=== PATIENT | male | born 1950 | race Asian ===

== ENCOUNTER 2016-10-21 08:19 | Inpatient (IN) | payer MEDICARE, OTHER ==
[~2016-10-21] VITALS: Ht 162.6 cm; Wt 73.4 kg
[~2016-10-21 08:19] MED LIST: ACAR50TA11 PO; AMLO10TA55 PO; ASPI-556 PO; ATOR20TA86 PO; B CO1CAP4 PO; CALC667T3 PO; CHOL2000 PO; CLON.2 PO; FOLI1CAP2 PO; HYDR50 PO; INSLAN SQ; LINA5TAB PO; MULT-722 PO; PARI1CAP IVP; PREDAOS OD; RAMI10 PO; TERA2 PO
[2016-10-21 08:35] LABS: GLUCOSE,POINT OF CARE 179 MG/DL (70-110)
[2016-10-21 10:16] LABS: BASOPHILS % (AUTO) 0.2 % (0.0-2.0); EOSINOPHILS % (AUTO) 0.2 % (1.0-6.0); HEMATOCRIT 26.5 % (41-53); HEMOGLOBIN 8.8 g/dL (13.5-17.5); LYMPHOCYTES # (AUTO) 0.6 K/uL (1.0-4.8); LYMPHOCYTES % (AUTO) 4.8 % (22.0-44.0); MEAN CORPUSCULAR HEMOGLOBIN 33.1 pg (26.0-34.0); MEAN CORPUSCULAR HGB CONC 33.3 G/dL (31.0-37.0); MEAN CORPUSCULAR VOLUME 99 fL (80-100); MONOCYTES # (AUTO) 0.3 K/uL (0.1-1.0); MONOCYTES % (AUTO) 2.2 % (2.0-9.0); NEUTROPHILS # (AUTO) 12.1 K/uL (1.8-7.7); PLATELET COUNT (AUTO) 268 K/uL (150-450); RED BLOOD CELL COUNT(AUTO) 2.67 MIL/uL (4.50-5.90); RED CELL DISTRIBUTION WIDTH 16.1 % (11.5-14.5); WHITE BLOOD COUNT (AUTO) 13.1 K/uL (4.5-11.0)
[2016-10-21 10:18] LABS: NEUTROPHILS % (AUTO) 92.6 % (40.0-70.0)
[2016-10-21 10:26] LABS: PROTHROMBIN TIME 10.8 SEC (9.4-11.6)
[2016-10-21 10:54] LABS: ALANINE AMINOTRANSFERASE 39 U/L (12-78); ALBUMIN 3.4 g/dL (3.4-5.0); ASPARTATE AMINOTRANSFERASE 24 U/L (15-37); BILIRUBIN,TOTAL 0.2 mg/dL (0.1-1.0); CALCIUM, TOTAL 7.6 mg/dL (8.8-10.5); CARBON DIOXIDE 23 mmol/L (22-29); CREATINE KINASE MB 2.6 ng/mL (0-5); CREATINE KINASE, TOTAL 221 U/L (39-308); GLOMERULAR FILTR. RATE CALC 5 mL/min (>60); TOTAL PROTEIN, SERUM 7.7 g/dL (6.4-8.2)
[2016-10-21 11:04] LABS: B-TYPE NATRIURETIC PEPTIDE 119 pg/mL (0-100)
[2016-10-21 11:05] LABS: ANION GAP 17 mmol/L (8-16); CHLORIDE 98 mmol/L (98-107); CREATININE 11.13 mg/dL (0.60-1.30); SODIUM SERUM 138 mmol/L (136-145); UREA NITROGEN, BLOOD 58 mg/dL (7-18)
[2016-10-21 11:08] LABS: POTASSIUM 6.6 mmol/L (3.5-5.1)
[2016-10-21] MEDS ORDERED: CALCIUM GLUCONATE 0.465 MEQ/ML 10 ML VIAL IVP ONE (11:15)
[2016-10-21] MEDS: DEXTROSE 50%-WATER 25 GM/50 ML SYRINGE IVP ONE ×2 (11:15→11:31)
[2016-10-21] MEDS ORDERED: SODIUM BICARBONATE [ADULT] 8.4% 50 MEQ/50 ML SYRINGE IVP ONE (11:15)
[2016-10-21] MEDS: INSULIN REGULAR, HUMAN 100 UNITS/ML IVP ONE ×2 (11:15→11:32)
[2016-10-21] MEDS ORDERED: ALBUTEROL SULFATE 2.5 MG/0.5 ML NEB SOLUTION NEB PRN (12:00)
[2016-10-21] MEDS ORDERED: ACETAMINOPHEN 325 MG TABLET PO PRN (12:00)
[2016-10-21] MEDS ORDERED: BISACODYL 10 MG RECTAL RECTAL SUPPOSITORY PR PRN (12:00)
[2016-10-21] MEDS ORDERED: DEXTROSE 50%-WATER 25 GM/50 ML SYRINGE IVP PRN (12:15)
[2016-10-21] MEDS ORDERED: VANCOMYCIN HCL 1.5 GM in DEXTROSE 5%-WATER 250 ML IV ONE ×2 (12:30→21:30)
[2016-10-21] MEDS ORDERED: VANCOMYCIN HCL 1 GM/D5% WATER 200 ML IV PRN (12:45)
[2016-10-21] MEDS ORDERED: PIPERACILLIN SODIUM/TAZOBACTAM 2.25 GM in DEXTROSE 5%-WATER 50 ML IV SCH (13:00)
[2016-10-21] MEDS: PANTOPRAZOLE SODIUM 40 MG/VIAL IVP SCH ×2 (14:53→21:13)
[2016-10-21 16:59] LABS: BASOPHILS % (AUTO) 0.7 % (0.0-2.0); EOSINOPHILS % (AUTO) 0.1 % (1.0-6.0); HEMATOCRIT 22.9 % (41-53); HEMOGLOBIN 7.5 g/dL (13.5-17.5); LYMPHOCYTES # (AUTO) 0.9 K/uL (1.0-4.8); LYMPHOCYTES % (AUTO) 6.6 % (22.0-44.0); MEAN CORPUSCULAR HEMOGLOBIN 32.4 pg (26.0-34.0); MEAN CORPUSCULAR HGB CONC 32.8 G/dL (31.0-37.0); MEAN CORPUSCULAR VOLUME 99 fL (80-100); MONOCYTES # (AUTO) 0.5 K/uL (0.1-1.0); MONOCYTES % (AUTO) 3.5 % (2.0-9.0); NEUTROPHILS # (AUTO) 12.1 K/uL (1.8-7.7); PLATELET COUNT (AUTO) 272 K/uL (150-450); RED BLOOD CELL COUNT(AUTO) 2.32 MIL/uL (4.50-5.90); RED CELL DISTRIBUTION WIDTH 16.1 % (11.5-14.5); WHITE BLOOD COUNT (AUTO) 13.5 K/uL (4.5-11.0)
[2016-10-21 17:01] LABS: NEUTROPHILS % (AUTO) 89.1 % (40.0-70.0)
[2016-10-21 17:36] LABS: RBC MORPHOLOGY COMMENT NORMAL RBC MORPH
[2016-10-21 21:07] VITALS: BP 132/52
[2016-10-21] MEDS: DOCUSATE SODIUM 100 MG CAPSULE PO SCH (21:13)
[2016-10-21] MEDS ORDERED: PIPERACILLIN SODIUM/TAZOBACTAM 0.75 GM in DEXTROSE 5%-WATER 50 ML IV PRN (21:15)
[2016-10-21] MEDS: INSULIN ASPART 100 UNITS/ML SQ PRN (21:16)
[2016-10-21] MEDS ORDERED: SODIUM CHLORIDE 0.9% 100 ML ONE (21:23)
[2016-10-21] MEDS: PIPERACILLIN SODIUM/TAZOBACTAM 2.25 GM in DEXTROSE 5%-WATER 50 ML IV SCH (23:56)
[2016-10-22] VITALS (7 sets, daily range): BP systolic 102–176; BP diastolic 47–75
[2016-10-22] MEDS: PIPERACILLIN SODIUM/TAZOBACTAM 2.25 GM in DEXTROSE 5%-WATER 50 ML IV SCH ×3 (05:33→22:39)
[2016-10-22 07:02] LABS: BASOPHILS # (AUTO) 0.02 K/uL (0.00-0.20); BASOPHILS % (AUTO) 0.2 % (0.0-2.0); EOSINOPHILS # (AUTO) 0.06 K/uL (0.00-0.70); EOSINOPHILS % (AUTO) 0.58 % (1.0-6.0); LYMPHOCYTES # (AUTO) 0.6 K/uL (1.0-4.8); LYMPHOCYTES % (AUTO) 5.8 % (22.0-44.0); MEAN CORPUSCULAR HEMOGLOBIN 33.1 pg (26.0-34.0); MEAN CORPUSCULAR HGB CONC 33.3 G/dL (31.0-37.0); MEAN CORPUSCULAR VOLUME 99 fL (80-100); MONOCYTES # (AUTO) 0.6 K/uL (0.1-1.0); MONOCYTES % (AUTO) 5.4 % (2.0-9.0); NEUTROPHILS # (AUTO) 9.2 K/uL (1.8-7.7); PLATELET COUNT (AUTO) 248 K/uL (150-450); RED BLOOD CELL COUNT(AUTO) 2.12 MIL/uL (4.50-5.90); RED CELL DISTRIBUTION WIDTH 16.6 % (11.5-14.5); WHITE BLOOD COUNT (AUTO) 10.4 K/uL (4.5-11.0)
[2016-10-22 07:12] LABS: CALCIUM, TOTAL 8.6 mg/dL (8.8-10.5); CREATININE 6.95 mg/dL (0.60-1.30); MAGNESIUM 1.7 mg/dL (1.80-2.40); PHOSPHORUS 4.5 mg/dL (2.5-4.9); POTASSIUM 4.1 mmol/L (3.5-5.1)
[2016-10-22 07:27] LABS: NEUTROPHILS % (AUTO) 88.1 % (40.0-70.0)
[2016-10-22 08:30] LABS: RBC MORPHOLOGY COMMENT ABNORMAL RBC MORPH
[2016-10-22] MEDS ORDERED: ALBUTEROL SULFATE 2.5 MG/0.5 ML NEB SOLUTION NEB PRN (08:45)
[2016-10-22] MEDS ORDERED: 0.9% SODIUM CHLORIDE 10 ML SYRINGE IVP PRN ×2 (08:45)
[2016-10-22] MEDS: PANTOPRAZOLE SODIUM 40 MG DR TABLET PO SCH (08:45)
[2016-10-22] MEDS ORDERED: ONDANSETRON HCL 4 MG/2 ML VIAL IVP PRN (08:45)
[2016-10-22] MEDS ORDERED: IPRATROPIUM BROMIDE 0.5 MG/2.5 ML NEB SOLUTION NEB PRN (08:45)
[2016-10-22] MEDS ORDERED: ACETAMINOPHEN 325 MG TABLET PO PRN (08:45)
[2016-10-22] MEDS ORDERED: HYDROCODONE/ACETAMINOPHEN 5-325 MG TABLET PO PRN (08:45)
[2016-10-22] MEDS: HydrALAZINE HCL 50 MG TABLET PO SCH ×3 (09:00→20:49)
[2016-10-22] MEDS: DOCUSATE SODIUM 100 MG CAPSULE PO SCH ×2 (09:00→20:50)
[2016-10-22] MEDS: CloNIDine HCL 0.2 MG TABLET PO SCH ×2 (09:00→20:50)
[2016-10-22] MEDS: VITAMIN B COMP/VIT C/FOLIC ACID CAPSULE PO SCH (09:46)
[2016-10-22] MEDS: PANTOPRAZOLE SODIUM 40 MG/VIAL IVP SCH ×2 (09:46→20:56)
[2016-10-22 11:51] LABS: GLUCOSE COMMENT 1 Received Meds; GLUCOSE,POINT OF CARE 151 MG/DL (70-110)
[2016-10-22] MEDS: PrednisoLONE ACETATE 1% 5 ML OPHTHALMIC SUSPENSION OD SCH (12:02)
[2016-10-22] MEDS: FLUOCINOLONE 0.025% TP SCH ×2 (12:02→20:57)
[2016-10-22] MEDS: CALCIUM ACETATE 667 MG CAPSULE PO SCH ×2 (12:04→17:57)
[2016-10-22] MEDS: ACARBOSE 50 MG TABLET PO SCH ×2 (12:04→17:57)
[2016-10-22] MEDS: INSULIN ASPART 100 UNITS/ML SQ PRN (12:06)
[2016-10-22] MEDS: EPOETIN ALFA 10,000 UNITS/ML VIAL SQ SCH (12:10)
[2016-10-22] MEDS ORDERED: SODIUM CHLORIDE 0.9% 250 ML IV ONE (14:35)
[2016-10-22 17:56] LABS: GLUCOSE,POINT OF CARE 113 MG/DL (70-110)
[2016-10-22] MEDS: -POST HEMODIALYSIS NOTE- MISC SCH (17:58)
[2016-10-22] MEDS: INSULIN DETEMIR 100 UNITS/ML SQ SCH (18:00)
[2016-10-22] MEDS: RAMIPRIL 10 MG CAPSULE PO SCH (20:49)
[2016-10-22] MEDS: ATORVASTATIN CALCIUM 20 MG TABLET PO SCH (20:57)
[2016-10-22] MEDS: TERAZOSIN HCL 2 MG CAPSULE PO SCH (21:00)
[2016-10-22] MEDS ORDERED: DEXTROSE 5%-0.45% SODIUM CHL 1,000 ML IV PRN (23:55)
[2016-10-23] VITALS (20 sets, daily range): BP systolic 96–174; BP diastolic 51–81
[2016-10-23 05:51] LABS: PROTHROMBIN TIME 10.7 SEC (9.4-11.6)
[2016-10-23 05:54] LABS: BASOPHILS % (AUTO) 0.2 % (0.0-2.0); EOSINOPHILS % (AUTO) 2.7 % (1.0-6.0); HEMATOCRIT 22.8 % (41-53); HEMOGLOBIN 7.7 g/dL (13.5-17.5); LYMPHOCYTES # (AUTO) 0.9 K/uL (1.0-4.8); LYMPHOCYTES % (AUTO) 9.7 % (22.0-44.0); MEAN CORPUSCULAR HEMOGLOBIN 32.1 pg (26.0-34.0); MEAN CORPUSCULAR HGB CONC 33.8 G/dL (31.0-37.0); MEAN CORPUSCULAR VOLUME 95 fL (80-100); MONOCYTES # (AUTO) 0.8 K/uL (0.1-1.0); MONOCYTES % (AUTO) 8.5 % (2.0-9.0); NEUTROPHILS # (AUTO) 7.2 K/uL (1.8-7.7); NEUTROPHILS % (AUTO) 78.9 % (40.0-70.0); PLATELET COUNT (AUTO) 217 K/uL (150-450); RED CELL DISTRIBUTION WIDTH 17.2 % (11.5-14.5); WHITE BLOOD COUNT (AUTO) 9.1 K/uL (4.5-11.0)
[2016-10-23] MEDS: PIPERACILLIN SODIUM/TAZOBACTAM 2.25 GM in DEXTROSE 5%-WATER 50 ML IV SCH (06:15)
[2016-10-23] MEDS: PANTOPRAZOLE SODIUM 40 MG DR TABLET PO SCH (06:19)
[2016-10-23 07:07] LABS: CALCIUM, TOTAL 8.8 mg/dL (8.8-10.5); CHOL/HDL RATIO 3.3 (4.2-7.3); CREATININE 5.62 mg/dL (0.60-1.30); MAGNESIUM 1.5 mg/dL (1.80-2.40); PHOSPHORUS 4.2 mg/dL (2.5-4.9); POTASSIUM 4.3 mmol/L (3.5-5.1); THYROID STIMULATING HORMONE 0.6 uIU/mL (0.36-3.74)
[2016-10-23] MEDS ORDERED: SODIUM CHLORIDE 0.9% 100 ML ONE ×3 (07:17→13:41)
[2016-10-23 07:29] LABS: RBC MORPHOLOGY COMMENT ABNORMAL RBC MORPH
[2016-10-23] MEDS: CALCIUM ACETATE 667 MG CAPSULE PO SCH ×3 (08:00→18:21)
[2016-10-23] MEDS: ACARBOSE 50 MG TABLET PO SCH ×3 (08:00→18:21)
[2016-10-23] MEDS ORDERED: VANCOMYCIN HCL 1 GM/D5% WATER 200 ML IV ONE (08:00)
[2016-10-23] MEDS: PrednisoLONE ACETATE 1% 5 ML OPHTHALMIC SUSPENSION OD SCH (08:24)
[2016-10-23] MEDS: FLUOCINOLONE 0.025% TP SCH ×2 (08:27→22:02)
[2016-10-23] MEDS: PANTOPRAZOLE SODIUM 40 MG/VIAL IVP SCH (08:27)
[2016-10-23] MEDS: HydrALAZINE HCL 50 MG TABLET PO SCH ×3 (08:33→22:01)
[2016-10-23] MEDS: -POST HEMODIALYSIS NOTE- MISC SCH (08:33)
[2016-10-23] MEDS: VITAMIN B COMP/VIT C/FOLIC ACID CAPSULE PO SCH (08:34)
[2016-10-23] MEDS: CloNIDine HCL 0.2 MG TABLET PO SCH ×2 (08:34→22:01)
[2016-10-23] MEDS: DOCUSATE SODIUM 100 MG CAPSULE PO SCH ×2 (08:34→21:00)
[2016-10-23] MEDS: SODIUM CHLORIDE 0.9% 1,000 ML IV SCH (11:30)
[2016-10-23] MEDS ORDERED: SODIUM CHLORIDE 0.9% 1,000 ML IV ONE ×2 (11:30→12:07)
[2016-10-23] MEDS ORDERED: LIDOCAINE HCL/PF 2% 5 ML VIAL INJ ONE (12:00)
[2016-10-23] MEDS ORDERED: PROPOFOL 1% 20 ML VIAL IVP ONE (12:00)
[2016-10-23] MEDS ORDERED: DESMOPRESSIN ACETATE 20 MCG in SODIUM CHLORIDE 0.9% 50 ML IV ONE (13:45)
[2016-10-23 17:26] LABS: GLUCOSE,POINT OF CARE 131 MG/DL (70-110)
[2016-10-23] MEDS: INSULIN DETEMIR 100 UNITS/ML SQ SCH (18:00)
[2016-10-23 19:32] LABS: GLUCOSE,POINT OF CARE 138 MG/DL (70-110)
[2016-10-23 19:32] LABS: GLUCOSE COMMENT 1 Received Meds; GLUCOSE,POINT OF CARE 183 MG/DL (70-110)
[2016-10-23 19:32] LABS: GLUCOSE,POINT OF CARE 135 MG/DL (70-110)
[2016-10-23 19:32] LABS: GLUCOSE COMMENT 1 Received Meds; GLUCOSE,POINT OF CARE 223 MG/DL (70-110)
[2016-10-23 19:36] LABS: GLUCOSE COMMENT 1 Received Meds; GLUCOSE,POINT OF CARE 145 MG/DL (70-110)
[2016-10-23] MEDS: RAMIPRIL 10 MG CAPSULE PO SCH (20:42)
[2016-10-23] MEDS: ATORVASTATIN CALCIUM 20 MG TABLET PO SCH (20:42)
[2016-10-23] MEDS: INSULIN ASPART 100 UNITS/ML SQ PRN (20:45)
[2016-10-23] MEDS: TERAZOSIN HCL 2 MG CAPSULE PO SCH (22:01)
[2016-10-24] VITALS (7 sets, daily range): BP systolic 96–178; BP diastolic 51–76
[2016-10-24] MEDS: PANTOPRAZOLE SODIUM 40 MG DR TABLET PO SCH (05:32)
[2016-10-24] MEDS: INSULIN ASPART 100 UNITS/ML SQ PRN ×3 (05:37→20:59)
[2016-10-24 06:39] LABS: BASOPHILS # (AUTO) 0.03 K/uL (0.00-0.20); BASOPHILS % (AUTO) 0.4 % (0.0-2.0); EOSINOPHILS # (AUTO) 0.36 K/uL (0.00-0.70); EOSINOPHILS % (AUTO) 4.48 % (1.0-6.0); HEMATOCRIT 29.1 % (41-53); HEMOGLOBIN 10.1 g/dL (13.5-17.5); LYMPHOCYTES # (AUTO) 0.7 K/uL (1.0-4.8); MEAN CORPUSCULAR HEMOGLOBIN 31.9 pg (26.0-34.0); MEAN CORPUSCULAR HGB CONC 34.6 G/dL (31.0-37.0); MEAN CORPUSCULAR VOLUME 92 fL (80-100); MONOCYTES # (AUTO) 0.7 K/uL (0.1-1.0); MONOCYTES % (AUTO) 8.1 % (2.0-9.0); NEUTROPHILS # (AUTO) 6.3 K/uL (1.8-7.7); NEUTROPHILS % (AUTO) 78.1 % (40.0-70.0); PLATELET COUNT (AUTO) 240 K/uL (150-450); RED BLOOD CELL COUNT(AUTO) 3.15 MIL/uL (4.50-5.90); RED CELL DISTRIBUTION WIDTH 17.1 % (11.5-14.5)
[2016-10-24 07:09] LABS: ALBUMIN 2.7 g/dL (3.4-5.0); BILIRUBIN,TOTAL 0.2 mg/dL (0.1-1.0); CALCIUM, TOTAL 8.6 mg/dL (8.8-10.5); CREATININE 8.61 mg/dL (0.60-1.30); MAGNESIUM 1.6 mg/dL (1.80-2.40); PHOSPHORUS 4.9 mg/dL (2.5-4.9); POTASSIUM 4.1 mmol/L (3.5-5.1); TOTAL PROTEIN, SERUM 6.9 g/dL (6.4-8.2)
[2016-10-24 07:54] LABS: RBC MORPHOLOGY COMMENT ABNORMAL RBC MORPH
[2016-10-24 08:11] LABS: GLUCOSE COMMENT 1 Received Meds; GLUCOSE,POINT OF CARE 143 MG/DL (70-110)
[2016-10-24] MEDS: DOCUSATE SODIUM 100 MG CAPSULE PO SCH ×2 (08:26→21:00)
[2016-10-24] MEDS: VITAMIN B COMP/VIT C/FOLIC ACID CAPSULE PO SCH (08:27)
[2016-10-24] MEDS: CloNIDine HCL 0.2 MG TABLET PO SCH (08:28)
[2016-10-24] MEDS: PrednisoLONE ACETATE 1% 5 ML OPHTHALMIC SUSPENSION OD SCH (08:28)
[2016-10-24] MEDS: ACARBOSE 50 MG TABLET PO SCH ×3 (08:28→18:19)
[2016-10-24] MEDS: CALCIUM ACETATE 667 MG CAPSULE PO SCH ×3 (08:28→18:19)
[2016-10-24] MEDS: HydrALAZINE HCL 50 MG TABLET PO SCH ×3 (08:28→21:00)
[2016-10-24] MEDS: EPOETIN ALFA 10,000 UNITS/ML VIAL SQ SCH (08:28)
[2016-10-24] MEDS: FLUOCINOLONE 0.025% TP SCH ×2 (08:29→20:56)
[2016-10-24] MEDS: CloNIDine HCL 0.1 MG TABLET PO SCH ×2 (09:00→21:00)
[2016-10-24] MEDS ORDERED: AmLODIPine BESYLATE 5 MG TABLET PO SCH (09:00)
[2016-10-24] MEDS: SODIUM CHLORIDE 0.9% 1,000 ML IV SCH (11:30)
[2016-10-24] MEDS: AmLODIPine BESYLATE 5 MG TABLET PO SCH (12:01)
[2016-10-24 12:10] LABS: GLUCOSE COMMENT 1 Received Meds; GLUCOSE,POINT OF CARE 213 MG/DL (70-110)
[2016-10-24] MEDS ORDERED: ALBUMIN HUMAN 25%-12.5GM/50ML IV BOTTLE IV PRN (13:30)
[2016-10-24] MEDS ORDERED: MANNITOL 25%-12.5 GM/50 ML VIAL IVP PRN (13:30)
[2016-10-24 18:11] LABS: GLUCOSE,POINT OF CARE 191 MG/DL (70-110)
[2016-10-24] MEDS: INSULIN DETEMIR 100 UNITS/ML SQ SCH (18:20)
[2016-10-24] MEDS: ATORVASTATIN CALCIUM 20 MG TABLET PO SCH (20:56)
[2016-10-24] MEDS: RAMIPRIL 10 MG CAPSULE PO SCH (21:00)
[2016-10-24] MEDS: TERAZOSIN HCL 2 MG CAPSULE PO SCH (21:00)
[2016-10-25 00:26] LABS: GLUCOSE COMMENT 1 Received Meds; GLUCOSE,POINT OF CARE 168 MG/DL (70-110)
[2016-10-25 04:25] VITALS: BP 156/62
[2016-10-25] MEDS: PANTOPRAZOLE SODIUM 40 MG DR TABLET PO SCH (05:53)
[2016-10-25] MEDS: INSULIN ASPART 100 UNITS/ML SQ PRN ×3 (05:55→18:02)
[2016-10-25 07:25] VITALS: BP 163/73
[2016-10-25 07:41] LABS: BASOPHILS % (AUTO) 0.3 % (0.0-2.0); HEMATOCRIT 32.6 % (41-53); HEMOGLOBIN 11.1 g/dL (13.5-17.5); LYMPHOCYTES # (AUTO) 0.9 K/uL (1.0-4.8); LYMPHOCYTES % (AUTO) 8.7 % (22.0-44.0); MEAN CORPUSCULAR HEMOGLOBIN 32.1 pg (26.0-34.0); MEAN CORPUSCULAR HGB CONC 34.1 G/dL (31.0-37.0); MEAN CORPUSCULAR VOLUME 94 fL (80-100); MONOCYTES # (AUTO) 0.8 K/uL (0.1-1.0); MONOCYTES % (AUTO) 6.9 % (2.0-9.0); NEUTROPHILS # (AUTO) 8.7 K/uL (1.8-7.7); NEUTROPHILS % (AUTO) 80.1 % (40.0-70.0); PLATELET COUNT (AUTO) 312 K/uL (150-450); RED BLOOD CELL COUNT(AUTO) 3.46 MIL/uL (4.50-5.90); WHITE BLOOD COUNT (AUTO) 10.9 K/uL (4.5-11.0)
[2016-10-25 08:00] LABS: BILIRUBIN,TOTAL 0.2 mg/dL (0.1-1.0); CALCIUM, TOTAL 9.7 mg/dL (8.8-10.5); CREATININE 7.1 mg/dL (0.60-1.30); MAGNESIUM 1.6 mg/dL (1.80-2.40); POTASSIUM 4.5 mmol/L (3.5-5.1)
[2016-10-25 08:02] LABS: RBC MORPHOLOGY COMMENT ABNORMAL RBC MORPH
[2016-10-25] MEDS: CloNIDine HCL 0.1 MG TABLET PO SCH (08:17)
[2016-10-25] MEDS: DOCUSATE SODIUM 100 MG CAPSULE PO SCH (08:18)
[2016-10-25] MEDS: VITAMIN B COMP/VIT C/FOLIC ACID CAPSULE PO SCH (08:18)
[2016-10-25] MEDS: ACARBOSE 50 MG TABLET PO SCH ×3 (08:19→17:42)
[2016-10-25] MEDS: CALCIUM ACETATE 667 MG CAPSULE PO SCH ×3 (08:19→17:42)
[2016-10-25] MEDS: PrednisoLONE ACETATE 1% 5 ML OPHTHALMIC SUSPENSION OD SCH (08:19)
[2016-10-25] MEDS: AmLODIPine BESYLATE 5 MG TABLET PO SCH (08:19)
[2016-10-25] MEDS: FLUOCINOLONE 0.025% TP SCH (08:20)
[2016-10-25] MEDS ORDERED: AmLODIPine BESYLATE 5 MG TABLET PO SCH (09:00)
[2016-10-25] MEDS: HydrALAZINE HCL 50 MG TABLET PO SCH ×2 (09:11→16:00)
[2016-10-25] MEDS: SODIUM CHLORIDE 0.9% 1,000 ML IV SCH (11:30)
[2016-10-25] MEDS ORDERED: INSLAN SQ (11:34)
[2016-10-25] MEDS ORDERED: AMLO-511 PO (11:34)
[2016-10-25] MEDS ORDERED: CLON.1 PO (11:34)
[2016-10-25] MEDS ORDERED: TERA5 PO (11:35)
[2016-10-25 11:48] VITALS: BP 147/70
[2016-10-25 12:21] LABS: GLUCOSE,POINT OF CARE 179 MG/DL (70-110)
[2016-10-25 15:32] VITALS: BP 107/55
[2016-10-25] MEDS: INSULIN DETEMIR 100 UNITS/ML SQ SCH (18:02)
[2016-10-26] MEDS ORDERED: VANCOMYCIN HCL 1 GM/D5% WATER 200 ML IV ONE (05:00)
[2016-10-30 14:56] LABS: GLUCOSE COMMENT 1 Received Meds; GLUCOSE,POINT OF CARE 143 MG/DL (70-110)
[2016-10-30 15:01] LABS: GLUCOSE COMMENT 1 Received Meds; GLUCOSE,POINT OF CARE 167 MG/DL (70-110)
[2016-10-30 15:01] LABS: GLUCOSE COMMENT 1 Received Meds; GLUCOSE,POINT OF CARE 145 MG/DL (70-110)
[2018-10-23] MEDS ORDERED: NEOSTIGMINE METHYLSULFATE 1 MG/ML 10 ML VIAL IVP ONE (12:00)
[2018-10-23] MEDS ORDERED: METOCLOPRAMIDE HCL 5 MG/ML 2 ML VIAL IVP ONE (12:00)
[2018-10-23] MEDS ORDERED: PROPOFOL 1% 20 ML VIAL IVP ONE (12:00)
[2018-10-23] MEDS ORDERED: LIDOCAINE HCL/PF 2% 5 ML VIAL INJ ONE (12:00)
[2018-10-23] MEDS ORDERED: DiphenhydrAMINE HCL 50 MG/ML VIAL IVP ONE (12:00)
== END 2016-10-25 18:50 | disposition home or self-care (01) | DRG 377 ==
LOC: EMS 08:20 → 5S 18:15
PROVIDERS: ADMIT Internal Medicine; ATTEND Internal Medicine
PROC: 5A1D60Z (ICD-10-PCS; principal; 2016-10-22)
PROC: 0DB98ZX Excision of Duodenum, Via Natural or Artificial Opening Endoscopic, Diagnostic (ICD-10-PCS; 2016-10-22)
PROC: 30233N1 Transfusion of Nonautologous Red Blood Cells into Peripheral Vein, Percutaneous Approach (ICD-10-PCS; 2016-10-23)
DX: K62.5 Hemorrhage of anus and rectum (principal); N18.6 End stage renal disease; I12.0 Hypertensive chronic kidney disease with stage 5 chronic kidney disease or end stage renal disease; E87.5 Hyperkalemia; E11.22 Type 2 diabetes mellitus with diabetic chronic kidney disease; E83.51 Hypocalcemia; D63.8 Anemia in other chronic diseases classified elsewhere; E78.5 Hyperlipidemia, unspecified; E86.0 Dehydration; L21.9 Seborrheic dermatitis, unspecified; I44.1 Atrioventricular block, second degree; K64.8 Other hemorrhoids; Z79.4 Long term (current) use of insulin; Z87.891 Personal history of nicotine dependence; Z91.19 Patient's noncompliance with other medical treatment and regimen; Z99.2 Dependence on renal dialysis; Z79.899 Other long term (current) drug therapy; Z79.82 Long term (current) use of aspirin
CPT/HCPCS: 82306; 82962; 83036; 83540; 83550; 83735; 83970; 84100; 84132; 84443; 86706; 86850; 86900; 86901; 86920; 87040; 87081; 87324; 87340; 87449; 88305; 88342; 90935; 93005; 93306; 93970; 96374; 96375; 99291; C9113; J0610; J0885; J1200; J1815; J2543; J2597; J2704; J2765; J3370; J3490; J7030; J7050; J7060; P9016

== ENCOUNTER 2016-10-29 15:36 | Inpatient (IN) | payer MEDICARE, OTHER ==
[~2016-10-29] VITALS: Ht 162.6 cm; Wt 77.1 kg
[~2016-10-29 15:36] MED LIST changes: +AMLO-511 PO; -AMLO10TA55 PO; +CLON.1 PO; -CLON.2 PO; -MULT-722 PO; -TERA2 PO; +TERA5 PO
[2016-10-29 15:51] LABS: GLUCOSE,POINT OF CARE 148 MG/DL (70-110)
[2016-10-29 16:48] LABS: BASOPHILS % (AUTO) 0.3 % (0.0-2.0); LYMPHOCYTES # (AUTO) 1.2 K/uL (1.0-4.8); LYMPHOCYTES % (AUTO) 11.5 % (22.0-44.0); MEAN CORPUSCULAR HEMOGLOBIN 31.3 pg (26.0-34.0); MEAN CORPUSCULAR HGB CONC 33.4 G/dL (31.0-37.0); MEAN CORPUSCULAR VOLUME 94 fL (80-100); MONOCYTES # (AUTO) 0.8 K/uL (0.1-1.0); MONOCYTES % (AUTO) 7.8 % (2.0-9.0); NEUTROPHILS % (AUTO) 78.4 % (40.0-70.0); PLATELET COUNT (AUTO) 398 K/uL (150-450); RED BLOOD CELL COUNT(AUTO) 2.88 MIL/uL (4.50-5.90); RED CELL DISTRIBUTION WIDTH 16.2 % (11.5-14.5); WHITE BLOOD COUNT (AUTO) 10.3 K/uL (4.5-11.0)
[2016-10-29 16:56] LABS: CALCIUM, TOTAL 7.9 mg/dL (8.8-10.5); CREATININE 6.89 mg/dL (0.60-1.30); POTASSIUM 3.8 mmol/L (3.5-5.1)
[2016-10-29 17:01] LABS: PROTHROMBIN TIME 10.7 SEC (9.4-11.6)
[2016-10-29 17:02] LABS: ALBUMIN 2.9 g/dL (3.4-5.0); BILIRUBIN,TOTAL 0.2 mg/dL (0.1-1.0); TOTAL PROTEIN, SERUM 7.6 g/dL (6.4-8.2)
[2016-10-29] MEDS ORDERED: SODIUM CHLORIDE 0.9% 500 ML IV ONE (19:45)
[2016-10-29] MEDS ORDERED: PANTOPRAZOLE SODIUM 80 MG in SODIUM CHLORIDE 0.9% 50 ML IV ONE (20:00)
[2016-10-29] MEDS ORDERED: 0.9% SODIUM CHLORIDE 10 ML SYRINGE IVP PRN (20:00)
[2016-10-29] MEDS ORDERED: ACETAMINOPHEN 325 MG TABLET PO PRN (20:00)
[2016-10-29] MEDS ORDERED: ONDANSETRON HCL 4 MG/2 ML VIAL IVP PRN (20:00)
[2016-10-29] MEDS: PANTOPRAZOLE SODIUM 80 MG in SODIUM CHLORIDE 0.9% 500 ML IV SCH (20:11)
[2016-10-30] MEDS ORDERED: PHENYLEPHRINE HCL 10 MG/ML VIAL IVP ONE
[2016-10-30] MEDS ORDERED: PROPOFOL 1% 20 ML VIAL IVP ONE
[2016-10-30] MEDS ORDERED: 0.9% SODIUM CHLORIDE 10 ML VIAL IVP ONE
[2016-10-30] MEDS ORDERED: EPHEDrine SULFATE 50 MG/ML VIAL IM ONE
[2016-10-30 00:14] VITALS: BP 142/63
[2016-10-30 04:14] VITALS: BP 145/54
[2016-10-30] MEDS: PANTOPRAZOLE SODIUM 80 MG in SODIUM CHLORIDE 0.9% 500 ML IV SCH (05:35)
[2016-10-30] MEDS ORDERED: DEXTROSE 50%-WATER 25 GM/50 ML SYRINGE IVP ONE (05:44)
[2016-10-30] MEDS ORDERED: DEXTROSE 50%-WATER 25 GM/50 ML SYRINGE IVP PRN (06:30)
[2016-10-30 07:34] VITALS: BP 146/72
[2016-10-30 07:58] LABS: BASOPHILS % (AUTO) 0.3 % (0.0-2.0); EOSINOPHILS % (AUTO) 4.2 % (1.0-6.0); HEMATOCRIT 24.7 % (41-53); HEMOGLOBIN 8.3 g/dL (13.5-17.5); LYMPHOCYTES # (AUTO) 0.9 K/uL (1.0-4.8); LYMPHOCYTES % (AUTO) 11.2 % (22.0-44.0); MEAN CORPUSCULAR HEMOGLOBIN 31.8 pg (26.0-34.0); MEAN CORPUSCULAR HGB CONC 33.7 G/dL (31.0-37.0); MEAN CORPUSCULAR VOLUME 94 fL (80-100); MONOCYTES # (AUTO) 0.6 K/uL (0.1-1.0); MONOCYTES % (AUTO) 7.6 % (2.0-9.0); NEUTROPHILS # (AUTO) 6.2 K/uL (1.8-7.7); NEUTROPHILS % (AUTO) 76.7 % (40.0-70.0); PLATELET COUNT (AUTO) 341 K/uL (150-450); RED BLOOD CELL COUNT(AUTO) 2.62 MIL/uL (4.50-5.90); RED CELL DISTRIBUTION WIDTH 16.4 % (11.5-14.5); WHITE BLOOD COUNT (AUTO) 8.1 K/uL (4.5-11.0)
[2016-10-30] MEDS: ACARBOSE 50 MG TABLET PO SCH ×3 (08:00→16:00)
[2016-10-30 08:10] LABS: CREATININE 7.95 mg/dL (0.60-1.30); POTASSIUM 3.4 mmol/L (3.5-5.1)
[2016-10-30 08:11] LABS: ALBUMIN 2.5 g/dL (3.4-5.0); BILIRUBIN,TOTAL 0.3 mg/dL (0.1-1.0); CALCIUM, TOTAL 6.8 mg/dL (8.8-10.5); TOTAL PROTEIN, SERUM 6.6 g/dL (6.4-8.2)
[2016-10-30] MEDS ORDERED: 0.9% SODIUM CHLORIDE 10 ML SYRINGE IVP PRN ×2 (08:15)
[2016-10-30] MEDS ORDERED: HYDROCODONE/ACETAMINOPHEN 5-325 MG TABLET PO PRN (08:15)
[2016-10-30] MEDS ORDERED: ZOLPIDEM TARTRATE 5 MG TABLET PO PRN (08:15)
[2016-10-30] MEDS ORDERED: IPRATROPIUM BROMIDE 0.5 MG/2.5 ML NEB SOLUTION NEB PRN (08:15)
[2016-10-30] MEDS ORDERED: ACETAMINOPHEN 325 MG TABLET PO PRN (08:15)
[2016-10-30] MEDS ORDERED: ONDANSETRON HCL 4 MG/2 ML VIAL IVP PRN (08:15)
[2016-10-30] MEDS ORDERED: ALBUTEROL SULFATE 2.5 MG/0.5 ML NEB SOLUTION NEB PRN (08:15)
[2016-10-30] MEDS: HydrALAZINE HCL 50 MG TABLET PO SCH ×3 (08:25→20:39)
[2016-10-30] MEDS: AmLODIPine BESYLATE 5 MG TABLET PO SCH (08:26)
[2016-10-30] MEDS: CloNIDine HCL 0.1 MG TABLET PO SCH ×2 (08:26→20:39)
[2016-10-30] MEDS: VITAMIN B COMP/VIT C/FOLIC ACID CAPSULE PO SCH (08:26)
[2016-10-30] MEDS: PrednisoLONE ACETATE 1% 5 ML OPHTHALMIC SUSPENSION OD SCH (08:30)
[2016-10-30] MEDS: PARICALCITOL 1 MCG CAPSULE PO SCH (08:30)
[2016-10-30] MEDS: ASPIRIN 81 MG EC TABLET PO SCH (08:47)
[2016-10-30] MEDS: INSULIN GLARGINE,HUM.REC.ANLOG 100 UNITS/ML SQ SCH (08:47)
[2016-10-30] MEDS: CHOLECALCIFEROL (VIT D3) 2,000 UNITS TABLET PO SCH (08:53)
[2016-10-30] MEDS: DOCUSATE SODIUM 250 MG CAPSULE PO SCH ×3 (08:53→20:39)
[2016-10-30] MEDS ORDERED: VITAMIN B COMP/VIT C/FOLIC ACID CAPSULE PO SCH (09:00)
[2016-10-30] MEDS ORDERED: SODIUM CHLORIDE 0.9% 1,000 ML IV ONE ×3 (09:15→10:01)
[2016-10-30] MEDS ORDERED: FentaNYL CITRATE-PF 100 MCG/2 ML VIAL ONE (09:57)
[2016-10-30] MEDS ORDERED: MIDAZOLAM HCL 5 MG/ML VIAL ONE (09:58)
[2016-10-30] MEDS ORDERED: FentaNYL CITRATE-PF 100 MCG/2 ML VIAL IVP PRN (10:45)
[2016-10-30] MEDS ORDERED: MEPERIDINE-PF 25 MG/ML SYRINGE IVP PRN (10:45)
[2016-10-30] MEDS ORDERED: HYDROmorphone 2 MG/ML SYRINGE IVP PRN (10:45)
[2016-10-30 11:18] VITALS: BP 112/73
[2016-10-30] MEDS: CALCIUM ACETATE 667 MG CAPSULE PO SCH ×2 (12:00→16:00)
[2016-10-30 12:50] LABS: HEMATOCRIT 25.5 % (41-53); HEMOGLOBIN 8.5 g/dL (13.5-17.5)
[2016-10-30 15:02] LABS: GLUCOSE COMMENT 1 Juice/Food/D50 Given; GLUCOSE,POINT OF CARE 71 MG/DL (70-110)
[2016-10-30 15:22] LABS: GLUCOSE,POINT OF CARE 168 MG/DL (70-110)
[2016-10-30 15:22] LABS: GLUCOSE COMMENT 1 Juice/Food/D50 Given; GLUCOSE COMMENT 3 FASTING; GLUCOSE,POINT OF CARE 59 MG/DL (70-110)
[2016-10-30 15:32] VITALS: BP 106/65
[2016-10-30] MEDS: INSULIN ASPART 100 UNITS/ML SQ PRN (18:28)
[2016-10-30 19:49] VITALS: BP 107/63
[2016-10-30] MEDS ORDERED: TERAZOSIN HCL 5 MG CAPSULE PO SCH (21:00)
[2016-10-30] MEDS ORDERED: RAMIPRIL 10 MG CAPSULE PO SCH (21:00)
[2016-10-30] MEDS ORDERED: ATORVASTATIN CALCIUM 20 MG TABLET PO SCH ×2 (21:00)
[2016-10-31 00:18] VITALS: BP 109/78
[2016-10-31 04:26] VITALS: BP 111/84
[2016-10-31 05:26] LABS: GLUCOSE COMMENT 1 Juice/Food/D50 Given; GLUCOSE,POINT OF CARE 74 MG/DL (70-110)
[2016-10-31] MEDS ORDERED: PANTOPRAZOLE SODIUM 40 MG DR TABLET PO SCH (06:30)
[2016-10-31 07:18] VITALS: BP 105/40
[2016-10-31] MEDS: ACARBOSE 50 MG TABLET PO SCH ×3 (08:00→18:17)
[2016-10-31] MEDS: CALCIUM ACETATE 667 MG CAPSULE PO SCH ×3 (08:00→18:17)
[2016-10-31] MEDS: INSULIN GLARGINE,HUM.REC.ANLOG 100 UNITS/ML SQ SCH (09:00)
[2016-10-31] MEDS: CloNIDine HCL 0.1 MG TABLET PO SCH (09:00)
[2016-10-31] MEDS: HydrALAZINE HCL 50 MG TABLET PO SCH ×2 (09:00→16:00)
[2016-10-31] MEDS: AmLODIPine BESYLATE 5 MG TABLET PO SCH (09:00)
[2016-10-31] MEDS ORDERED: LinaGLIPtin 5 MG TABLET PO SCH (09:00)
[2016-10-31 11:02] LABS: BASOPHILS % (AUTO) 0.3 % (0.0-2.0); EOSINOPHILS % (AUTO) 4.6 % (1.0-6.0); HEMATOCRIT 24.5 % (41-53); HEMOGLOBIN 8.2 g/dL (13.5-17.5); LYMPHOCYTES # (AUTO) 1.1 K/uL (1.0-4.8); MEAN CORPUSCULAR HEMOGLOBIN 31.3 pg (26.0-34.0); MEAN CORPUSCULAR HGB CONC 33.5 G/dL (31.0-37.0); MEAN CORPUSCULAR VOLUME 93 fL (80-100); MONOCYTES # (AUTO) 0.5 K/uL (0.1-1.0); MONOCYTES % (AUTO) 5.1 % (2.0-9.0); NEUTROPHILS # (AUTO) 7.1 K/uL (1.8-7.7); PLATELET COUNT (AUTO) 347 K/uL (150-450); RED BLOOD CELL COUNT(AUTO) 2.63 MIL/uL (4.50-5.90); RED CELL DISTRIBUTION WIDTH 16.4 % (11.5-14.5); WHITE BLOOD COUNT (AUTO) 9.1 K/uL (4.5-11.0)
[2016-10-31 11:11] LABS: HEMOGLOBIN A1C 5.9 % (4.5-6.2)
[2016-10-31 11:28] LABS: CALCIUM, TOTAL 7.3 mg/dL (8.8-10.5); CHOL/HDL RATIO 3.6 (4.2-7.3); CREATININE 10.86 mg/dL (0.60-1.30); POTASSIUM 4.1 mmol/L (3.5-5.1); THYROID STIMULATING HORMONE 0.6 uIU/mL (0.36-3.74)
[2016-10-31] MEDS: PrednisoLONE ACETATE 1% 5 ML OPHTHALMIC SUSPENSION OD SCH (11:31)
[2016-10-31 11:41] VITALS: BP 125/55
[2016-10-31 15:30] VITALS: BP 115/32
[2016-10-31] MEDS: DOCUSATE SODIUM 250 MG CAPSULE PO SCH ×2 (16:04→17:26)
[2016-10-31] MEDS: CHOLECALCIFEROL (VIT D3) 2,000 UNITS TABLET PO SCH (16:04)
[2016-10-31] MEDS: VITAMIN B COMP/VIT C/FOLIC ACID CAPSULE PO SCH (16:04)
[2016-10-31] MEDS: PARICALCITOL 1 MCG CAPSULE PO SCH (16:04)
[2016-10-31] MEDS: ASPIRIN 81 MG EC TABLET PO SCH (16:04)
[2016-10-31 16:34] VITALS: BP 113/59
[2016-10-31] MEDS ORDERED: PANT40TA25 PO (17:08)
[2016-10-31] MEDS ORDERED: ONDA4 PO (17:09)
[2016-10-31] MEDS: INSULIN ASPART 100 UNITS/ML SQ PRN (18:20)
[2016-11-02 18:16] LABS: GLUCOSE,POINT OF CARE 159 MG/DL (70-110)
[2016-11-02 18:17] LABS: GLUCOSE,POINT OF CARE 155 MG/DL (70-110)
[2016-11-04 06:41] LABS: GLUCOSE,POINT OF CARE 130 MG/DL (70-110)
[2016-11-04 06:42] LABS: GLUCOSE,POINT OF CARE 219 MG/DL (70-110)
== END 2016-10-31 18:50 | disposition home or self-care (01) | DRG 368 ==
LOC: EMS 15:38 → 5N 21:42
PROVIDERS: ADMIT Internal Medicine; ATTEND Internal Medicine
PROC: 0DJ08ZZ Inspection of Upper Intestinal Tract, Via Natural or Artificial Opening Endoscopic (ICD-10-PCS; principal; 2016-10-30 11:00)
DX: K22.6 Gastro-esophageal laceration-hemorrhage syndrome (principal); N18.6 End stage renal disease; I12.0 Hypertensive chronic kidney disease with stage 5 chronic kidney disease or end stage renal disease; K92.0 Hematemesis; Z99.2 Dependence on renal dialysis; E78.5 Hyperlipidemia, unspecified; K57.90 Diverticulosis of intestine, part unspecified, without perforation or abscess without bleeding; D64.9 Anemia, unspecified; E11.21 Type 2 diabetes mellitus with diabetic nephropathy; E11.22 Type 2 diabetes mellitus with diabetic chronic kidney disease; E11.319 Type 2 diabetes mellitus with unspecified diabetic retinopathy without macular edema; I73.9 Peripheral vascular disease, unspecified; K20.9 Esophagitis, unspecified; Z79.4 Long term (current) use of insulin; Z87.891 Personal history of nicotine dependence; Z79.899 Other long term (current) drug therapy
CPT/HCPCS: 73721; 74022; 76700; 82271; 82962; 83036; 84443; 85014; 85018; 86850; 86900; 86901; 86920; 87081; 90935; 93005; 99285; C9113; J1815; J2250; J2370; J2704; J3010; J3490; J7030; J7040; J7050

== ENCOUNTER 2016-12-11 09:34 | Inpatient (IN) | payer MEDICARE, OTHER ==
[2016-12-11] VITALS (11 sets, daily range): BP systolic 102–129; BP diastolic 47–58
[~2016-12-11] VITALS: Ht 160 cm; Wt 87.8 kg
[~2016-12-11 09:34] MED LIST changes: +ONDA4 PO; +PANT40TA25 PO
[2016-12-11 09:47] LABS: GLUCOSE,POINT OF CARE 149 MG/DL (70-110)
[2016-12-11 10:58] LABS: BASOPHILS % (AUTO) 0.2 % (0.0-2.0); EOSINOPHILS % (AUTO) 0.6 % (1.0-6.0); LYMPHOCYTES % (AUTO) 10.1 % (22.0-44.0); MEAN CORPUSCULAR HEMOGLOBIN 31.2 pg (26.0-34.0); MEAN CORPUSCULAR HGB CONC 32.5 G/dL (31.0-37.0); MEAN CORPUSCULAR VOLUME 96 fL (80-100); MONOCYTES # (AUTO) 0.5 K/uL (0.1-1.0); MONOCYTES % (AUTO) 5.6 % (2.0-9.0); NEUTROPHILS % (AUTO) 83.5 % (40.0-70.0); PLATELET COUNT (AUTO) 300 K/uL (150-450); RED BLOOD CELL COUNT(AUTO) 2.07 MIL/uL (4.50-5.90); WHITE BLOOD COUNT (AUTO) 9.6 K/uL (4.5-11.0)
[2016-12-11 11:04] LABS: CALCIUM, TOTAL 7.5 mg/dL (8.8-10.5); CREATININE 9.73 mg/dL (0.60-1.30); POTASSIUM 4.9 mmol/L (3.5-5.1)
[2016-12-11 11:07] LABS: HEMOGLOBIN 6.5 g/dL (13.5-17.5); PROTHROMBIN TIME 10.7 SEC (9.4-11.6)
[2016-12-11 11:08] LABS: HEMATOCRIT 19.9 % (41-53)
[2016-12-11 11:10] LABS: ALBUMIN 3.1 g/dL (3.4-5.0); BILIRUBIN,TOTAL 0.3 mg/dL (0.1-1.0); TOTAL PROTEIN, SERUM 7.3 g/dL (6.4-8.2)
[2016-12-11 11:31] LABS: RBC MORPHOLOGY COMMENT ABNORMAL RBC MORPH
[2016-12-11] MEDS ORDERED: SODIUM CHLORIDE 0.9% 500 ML IV ONE (12:42)
[2016-12-11 13:46] LABS: APPEARANCE,URINE CLOUDY (CLEAR); GLUCOSE, URINE (UA) NEGATIVE (NEGATIVE); KETONES,URINE NEGATIVE (NEGATIVE); LEUKOCYTE ESTERASE ,URINE NEGATIVE (NEGATIVE); OCCULT BLOOD,URINE NEGATIVE (NEGATIVE); PROTEIN,URINE NEGATIVE (NEGATIVE)
[2016-12-11 13:56] LABS: ADD UA MICROSCOPIC YES
[2016-12-11 13:59] LABS: RBC,URINE None Seen /HPF (0-2); WBC,URINE 0-2 /HPF (0-5)
[2016-12-11 14:01] LABS: SQUAMOUS EPITHELIAL CELL,UR Moderate /LPF (None Seen)
[2016-12-11] MEDS ORDERED: VITAMIN B COMP/VIT C/FOLIC ACID CAPSULE PO SCH (16:30)
[2016-12-11] MEDS ORDERED: PANTOPRAZOLE SODIUM 40 MG DR TABLET PO SCH (16:30)
[2016-12-11] MEDS ORDERED: ONDANSETRON HCL 4 MG TABLET PO PRN (16:30)
[2016-12-11] MEDS ORDERED: IPRATROPIUM BROMIDE 0.5 MG/2.5 ML NEB SOLUTION NEB PRN (16:30)
[2016-12-11] MEDS ORDERED: ALBUTEROL SULFATE 2.5 MG/0.5 ML NEB SOLUTION NEB PRN (16:30)
[2016-12-11] MEDS ORDERED: 0.9% SODIUM CHLORIDE 10 ML SYRINGE IVP PRN ×2 (16:30)
[2016-12-11] MEDS ORDERED: ZOLPIDEM TARTRATE 5 MG TABLET PO PRN (16:30)
[2016-12-11] MEDS ORDERED: ONDANSETRON HCL 4 MG/2 ML VIAL IVP PRN (16:30)
[2016-12-11] MEDS: AmLODIPine BESYLATE 5 MG TABLET PO SCH (17:48)
[2016-12-11] MEDS: VITAMIN B COMP/VIT C/FOLIC ACID CAPSULE PO SCH (17:49)
[2016-12-11] MEDS: PANTOPRAZOLE SODIUM 40 MG DR TABLET PO SCH (17:50)
[2016-12-11] MEDS: ASPIRIN 81 MG EC TABLET PO SCH (17:50)
[2016-12-11] MEDS: HEPARIN SODIUM,PORCINE 5,000 UNITS/ML VIAL SQ SCH (17:54)
[2016-12-11] MEDS: PrednisoLONE ACETATE 1% 5 ML OPHTHALMIC SUSPENSION OD SCH (17:56)
[2016-12-11] MEDS: LinaGLIPtin 5 MG TABLET PO SCH (17:58)
[2016-12-11] MEDS: ACARBOSE 50 MG TABLET PO SCH (17:59)
[2016-12-11] MEDS: CALCIUM ACETATE 667 MG CAPSULE PO SCH (17:59)
[2016-12-11] MEDS: CHOLECALCIFEROL (VIT D3) 2,000 UNITS TABLET PO SCH (18:00)
[2016-12-11] MEDS: INSULIN DETEMIR 100 UNITS/ML SQ SCH (18:02)
[2016-12-11 18:11] LABS: GLUCOSE COMMENT 1 Received Meds; GLUCOSE,POINT OF CARE 205 MG/DL (70-110)
[2016-12-11] MEDS ORDERED: DESMOPRESSIN ACETATE 20 MCG in SODIUM CHLORIDE 0.9% 50 ML IV ONE (19:00)
[2016-12-11] MEDS ORDERED: INFLUENZA VIRUS VACCINE QVS 2016-17 (3YR+)/PF 60 MCG/0.5 ML SYRINGE IM ONE (19:45)
[2016-12-11] MEDS ORDERED: PNEUMOCOCCAL VACCINE POLYVALENT 0.5 ML VIAL [PPSV23] IM ONE (19:45)
[2016-12-11] MEDS: TERAZOSIN HCL 5 MG CAPSULE PO SCH (20:32)
[2016-12-11] MEDS: CloNIDine HCL 0.1 MG TABLET PO SCH (20:32)
[2016-12-11] MEDS: ATORVASTATIN CALCIUM 20 MG TABLET PO SCH (20:32)
[2016-12-11] MEDS: RAMIPRIL 10 MG CAPSULE PO SCH (20:32)
[2016-12-11] MEDS: HydrALAZINE HCL 50 MG TABLET PO SCH (20:33)
[2016-12-11] MEDS ORDERED: ATORVASTATIN CALCIUM 20 MG TABLET PO SCH (21:00)
[2016-12-12 04:37] VITALS: BP 131/58
[2016-12-12] MEDS: HEPARIN SODIUM,PORCINE 5,000 UNITS/ML VIAL SQ SCH (05:50)
[2016-12-12] MEDS: PANTOPRAZOLE SODIUM 40 MG DR TABLET PO SCH (05:50)
[2016-12-12 06:59] VITALS: BP 126/58
[2016-12-12 07:16] LABS: BASOPHILS # (AUTO) 0.03 K/uL (0.00-0.20); BASOPHILS % (AUTO) 0.3 % (0.0-2.0); EOSINOPHILS # (AUTO) 0.13 K/uL (0.00-0.70); EOSINOPHILS % (AUTO) 1.55 % (1.0-6.0); LYMPHOCYTES # (AUTO) 0.8 K/uL (1.0-4.8); LYMPHOCYTES % (AUTO) 9.8 % (22.0-44.0); MEAN CORPUSCULAR HEMOGLOBIN 32.2 pg (26.0-34.0); MEAN CORPUSCULAR HGB CONC 33.6 G/dL (31.0-37.0); MEAN CORPUSCULAR VOLUME 96 fL (80-100); MONOCYTES # (AUTO) 0.5 K/uL (0.1-1.0); MONOCYTES % (AUTO) 5.8 % (2.0-9.0); NEUTROPHILS # (AUTO) 7.1 K/uL (1.8-7.7); NEUTROPHILS % (AUTO) 82.5 % (40.0-70.0); PLATELET COUNT (AUTO) 240 K/uL (150-450); RED CELL DISTRIBUTION WIDTH 17.9 % (11.5-14.5); WHITE BLOOD COUNT (AUTO) 8.6 K/uL (4.5-11.0)
[2016-12-12 07:21] LABS: HEMATOCRIT 20.1 % (41-53); HEMOGLOBIN 6.8 g/dL (13.5-17.5); RBC MORPHOLOGY COMMENT ABNORMAL RBC MORPH
[2016-12-12 07:25] LABS: CALCIUM, TOTAL 7.1 mg/dL (8.8-10.5); CREATININE 11.89 mg/dL (0.60-1.30); MAGNESIUM 1.6 mg/dL (1.80-2.40); PHOSPHORUS 6.7 mg/dL (2.5-4.9); POTASSIUM 5.8 mmol/L (3.5-5.1); THYROID STIMULATING HORMONE 0.86 uIU/mL (0.36-3.74)
[2016-12-12] MEDS ORDERED: DEXTROSE 50%-WATER 25 GM/50 ML SYRINGE IVP PRN (07:30)
[2016-12-12] MEDS: HydrALAZINE HCL 50 MG TABLET PO SCH ×3 (09:00→20:54)
[2016-12-12] MEDS: ACARBOSE 50 MG TABLET PO SCH ×3 (09:55→18:17)
[2016-12-12] MEDS: CALCIUM ACETATE 667 MG CAPSULE PO SCH ×3 (09:55→18:18)
[2016-12-12] MEDS: LinaGLIPtin 5 MG TABLET PO SCH (09:55)
[2016-12-12] MEDS: ASPIRIN 81 MG EC TABLET PO SCH (09:55)
[2016-12-12] MEDS: INSULIN DETEMIR 100 UNITS/ML SQ SCH (10:03)
[2016-12-12 11:15] VITALS: BP 160/67
[2016-12-12] MEDS: INSULIN ASPART 100 UNITS/ML SQ PRN (11:47)
[2016-12-12] MEDS ORDERED: LIDOCAINE HCL/PF 1% 2 ML VIAL INJ ONE (12:00)
[2016-12-12 15:46] LABS: GLUCOSE,POINT OF CARE 319 MG/DL (70-110)
[2016-12-12 15:46] LABS: GLUCOSE COMMENT 1 Received Meds; GLUCOSE,POINT OF CARE 149 MG/DL (70-110)
[2016-12-12 16:00] VITALS: BP 162/72
[2016-12-12] MEDS: CHOLECALCIFEROL (VIT D3) 2,000 UNITS TABLET PO SCH (16:20)
[2016-12-12] MEDS: EPOETIN ALFA 10,000 UNITS/ML VIAL SQ SCH (16:20)
[2016-12-12] MEDS: PrednisoLONE ACETATE 1% 5 ML OPHTHALMIC SUSPENSION OD SCH (16:20)
[2016-12-12] MEDS: VITAMIN B COMP/VIT C/FOLIC ACID CAPSULE PO SCH (16:20)
[2016-12-12] MEDS: AmLODIPine BESYLATE 5 MG TABLET PO SCH (16:20)
[2016-12-12] MEDS: CloNIDine HCL 0.1 MG TABLET PO SCH ×2 (16:20→20:54)
[2016-12-12 16:49] LABS: BASOPHILS % (AUTO) 0.2 % (0.0-2.0); EOSINOPHILS % (AUTO) 2.3 % (1.0-6.0); HEMATOCRIT 27.9 % (41-53); HEMOGLOBIN 9.1 g/dL (13.5-17.5); LYMPHOCYTES # (AUTO) 0.7 K/uL (1.0-4.8); LYMPHOCYTES % (AUTO) 8.3 % (22.0-44.0); MEAN CORPUSCULAR HEMOGLOBIN 29.8 pg (26.0-34.0); MEAN CORPUSCULAR HGB CONC 32.6 G/dL (31.0-37.0); MEAN CORPUSCULAR VOLUME 91 fL (80-100); MONOCYTES # (AUTO) 0.5 K/uL (0.1-1.0); MONOCYTES % (AUTO) 5.9 % (2.0-9.0); NEUTROPHILS # (AUTO) 6.8 K/uL (1.8-7.7); NEUTROPHILS % (AUTO) 83.3 % (40.0-70.0); PLATELET COUNT (AUTO) 265 K/uL (150-450); RED BLOOD CELL COUNT(AUTO) 3.06 MIL/uL (4.50-5.90); RED CELL DISTRIBUTION WIDTH 17.2 % (11.5-14.5); WHITE BLOOD COUNT (AUTO) 8.2 K/uL (4.5-11.0)
[2016-12-12 18:06] LABS: RBC MORPHOLOGY COMMENT ABNORMAL RBC MORPH
[2016-12-12 20:31] VITALS: BP 149/66
[2016-12-12] MEDS: RAMIPRIL 10 MG CAPSULE PO SCH (20:54)
[2016-12-12] MEDS: TERAZOSIN HCL 5 MG CAPSULE PO SCH (20:54)
[2016-12-12] MEDS: ATORVASTATIN CALCIUM 20 MG TABLET PO SCH (20:54)
[2016-12-12 23:55] VITALS: BP 145/60
[2016-12-13 05:28] VITALS: BP 137/59
[2016-12-13] MEDS: PANTOPRAZOLE SODIUM 40 MG DR TABLET PO SCH (06:09)
[2016-12-13 06:43] LABS: ALBUMIN 2.7 g/dL (3.4-5.0); BILIRUBIN,TOTAL 0.2 mg/dL (0.1-1.0); CALCIUM, TOTAL 7.4 mg/dL (8.8-10.5); CREATININE 8.1 mg/dL (0.60-1.30); POTASSIUM 5.7 mmol/L (3.5-5.1); TOTAL PROTEIN, SERUM 6.1 g/dL (6.4-8.2)
[2016-12-13 07:35] VITALS: BP 149/57
[2016-12-13] MEDS: CALCIUM ACETATE 667 MG CAPSULE PO SCH ×3 (08:00→18:15)
[2016-12-13] MEDS: PrednisoLONE ACETATE 1% 5 ML OPHTHALMIC SUSPENSION OD SCH (08:55)
[2016-12-13] MEDS: INSULIN DETEMIR 100 UNITS/ML SQ SCH (08:57)
[2016-12-13] MEDS: ASPIRIN 81 MG EC TABLET PO SCH (09:00)
[2016-12-13] MEDS: CloNIDine HCL 0.1 MG TABLET PO SCH ×2 (09:35→20:23)
[2016-12-13] MEDS: AmLODIPine BESYLATE 5 MG TABLET PO SCH (09:35)
[2016-12-13] MEDS: VITAMIN B COMP/VIT C/FOLIC ACID CAPSULE PO SCH (09:35)
[2016-12-13] MEDS: CHOLECALCIFEROL (VIT D3) 2,000 UNITS TABLET PO SCH (09:36)
[2016-12-13] MEDS: ACARBOSE 50 MG TABLET PO SCH ×3 (09:37→18:15)
[2016-12-13] MEDS: HydrALAZINE HCL 50 MG TABLET PO SCH ×3 (09:37→20:22)
[2016-12-13] MEDS: LinaGLIPtin 5 MG TABLET PO SCH (09:38)
[2016-12-13 09:46] LABS: HEMATOCRIT 21.8 % (41-53); HEMOGLOBIN 7.3 g/dL (13.5-17.5)
[2016-12-13] MEDS ORDERED: FentaNYL CITRATE-PF 100 MCG/2 ML VIAL ONE (09:51)
[2016-12-13] MEDS ORDERED: MIDAZOLAM HCL 5 MG/ML VIAL ONE (09:51)
[2016-12-13] MEDS ORDERED: SODIUM CHLORIDE 0.9% 1,000 ML IV ONE ×2 (10:15→10:22)
[2016-12-13] MEDS ORDERED: PEG 3350/NA SULF,BICARB,CL/KCL 4000 ML SOLUTION PO ONE (11:30)
[2016-12-13 12:27] LABS: GLUCOSE,POINT OF CARE 84 MG/DL (70-110)
[2016-12-13 14:38] LABS: HEMATOCRIT 21.8 % (41-53); HEMOGLOBIN 7.3 g/dL (13.5-17.5)
[2016-12-13 18:02] LABS: GLUCOSE COMMENT 1 Received Meds; GLUCOSE,POINT OF CARE 131 MG/DL (70-110)
[2016-12-13 19:04] VITALS: BP 185/77
[2016-12-13] MEDS: TERAZOSIN HCL 5 MG CAPSULE PO SCH (20:22)
[2016-12-13] MEDS: RAMIPRIL 10 MG CAPSULE PO SCH (20:22)
[2016-12-13] MEDS: ATORVASTATIN CALCIUM 20 MG TABLET PO SCH (20:22)
[2016-12-13 23:07] VITALS: BP 161/76
[2016-12-14] VITALS (8 sets, daily range): BP systolic 140–188; BP diastolic 69–80
[2016-12-14] MEDS: PANTOPRAZOLE SODIUM 40 MG DR TABLET PO SCH (05:25)
[2016-12-14] MEDS: HydrALAZINE HCL 50 MG TABLET PO SCH ×3 (05:49→19:55)
[2016-12-14] MEDS: HYDROCODONE/ACETAMINOPHEN 5-325 MG TABLET PO PRN ×2 (05:50→19:55)
[2016-12-14 06:02] LABS: GLUCOSE,POINT OF CARE 128 MG/DL (70-110)
[2016-12-14 06:30] LABS: BASOPHILS % (AUTO) 0.6 % (0.0-2.0); EOSINOPHILS % (AUTO) 4.4 % (1.0-6.0); HEMATOCRIT 27.9 % (41-53); HEMOGLOBIN 9.1 g/dL (13.5-17.5); LYMPHOCYTES # (AUTO) 0.7 K/uL (1.0-4.8); LYMPHOCYTES % (AUTO) 8.2 % (22.0-44.0); MEAN CORPUSCULAR HGB CONC 32.8 G/dL (31.0-37.0); MEAN CORPUSCULAR VOLUME 91 fL (80-100); MONOCYTES # (AUTO) 0.6 K/uL (0.1-1.0); MONOCYTES % (AUTO) 7.3 % (2.0-9.0); NEUTROPHILS # (AUTO) 6.6 K/uL (1.8-7.7); NEUTROPHILS % (AUTO) 79.5 % (40.0-70.0); PLATELET COUNT (AUTO) 255 K/uL (150-450); RED BLOOD CELL COUNT(AUTO) 3.05 MIL/uL (4.50-5.90); RED CELL DISTRIBUTION WIDTH 17.6 % (11.5-14.5); WHITE BLOOD COUNT (AUTO) 8.2 K/uL (4.5-11.0)
[2016-12-14 06:52] LABS: GLUCOSE,POINT OF CARE 100 MG/DL (70-110)
[2016-12-14 07:00] LABS: BILIRUBIN,TOTAL 0.4 mg/dL (0.1-1.0); CALCIUM, TOTAL 8.4 mg/dL (8.8-10.5); CREATININE 5.58 mg/dL (0.60-1.30); MAGNESIUM 1.4 mg/dL (1.80-2.40); PHOSPHORUS 4.7 mg/dL (2.5-4.9); TOTAL PROTEIN, SERUM 6.9 g/dL (6.4-8.2)
[2016-12-14] MEDS ORDERED: MAGNESIUM SULFATE 1 GM in DEXTROSE 5%-WATER 50 ML IV ONE (08:00)
[2016-12-14] MEDS: CALCIUM ACETATE 667 MG CAPSULE PO SCH ×3 (08:00→17:47)
[2016-12-14] MEDS: ACARBOSE 50 MG TABLET PO SCH ×3 (08:00→17:46)
[2016-12-14] MEDS ORDERED: SODIUM CHLORIDE 0.9% 1,000 ML IV ONE ×2 (08:49→11:00)
[2016-12-14] MEDS: VITAMIN B COMP/VIT C/FOLIC ACID CAPSULE PO SCH (09:00)
[2016-12-14] MEDS: ASPIRIN 81 MG EC TABLET PO SCH (09:00)
[2016-12-14] MEDS: INSULIN DETEMIR 100 UNITS/ML SQ SCH (09:00)
[2016-12-14] MEDS: LinaGLIPtin 5 MG TABLET PO SCH (09:00)
[2016-12-14] MEDS: CHOLECALCIFEROL (VIT D3) 2,000 UNITS TABLET PO SCH (09:00)
[2016-12-14] MEDS ORDERED: SODIUM CHLORIDE 0.9% 250 ML IV ONE (09:49)
[2016-12-14] MEDS: EPOETIN ALFA 10,000 UNITS/ML VIAL SQ SCH (09:55)
[2016-12-14] MEDS: AmLODIPine BESYLATE 5 MG TABLET PO SCH (10:02)
[2016-12-14] MEDS: CloNIDine HCL 0.1 MG TABLET PO SCH ×2 (10:02→19:54)
[2016-12-14] MEDS: PrednisoLONE ACETATE 1% 5 ML OPHTHALMIC SUSPENSION OD SCH (10:04)
[2016-12-14 10:35] LABS: RBC MORPHOLOGY COMMENT ABNORMAL RBC MORPH
[2016-12-14 11:41] LABS: GLUCOSE,POINT OF CARE 101 MG/DL (70-110)
[2016-12-14] MEDS ORDERED: PROPOFOL 1% 20 ML VIAL IVP ONE (12:00)
[2016-12-14] MEDS ORDERED: LIDOCAINE HCL/PF 2% 5 ML VIAL INJ ONE (12:00)
[2016-12-14] MEDS: HYDROCORTISONE 2.5% 30 GM CREAM TP SCH ×2 (16:51→20:06)
[2016-12-14] MEDS: INSULIN ASPART 100 UNITS/ML SQ PRN (17:48)
[2016-12-14] MEDS: TERAZOSIN HCL 5 MG CAPSULE PO SCH (19:54)
[2016-12-14] MEDS: ATORVASTATIN CALCIUM 20 MG TABLET PO SCH (19:54)
[2016-12-14] MEDS: RAMIPRIL 10 MG CAPSULE PO SCH (19:54)
[2016-12-14] MEDS: OXYGEN THERAPY IH SCH (20:07)
[2016-12-14 20:57] LABS: GLUCOSE,POINT OF CARE 78 MG/DL (70-110)
[2016-12-14 20:57] LABS: GLUCOSE COMMENT 1 Juice/Food/D50 Given; GLUCOSE,POINT OF CARE 64 MG/DL (70-110)
[2016-12-14 20:57] LABS: GLUCOSE COMMENT 1 Received Meds; GLUCOSE,POINT OF CARE 201 MG/DL (70-110)
[2016-12-15 04:58] VITALS: BP 151/80
[2016-12-15] MEDS: PANTOPRAZOLE SODIUM 40 MG DR TABLET PO SCH (05:26)
[2016-12-15] MEDS: INSULIN ASPART 100 UNITS/ML SQ PRN (05:30)
[2016-12-15 06:27] LABS: GLUCOSE COMMENT 1 Received Meds; GLUCOSE,POINT OF CARE 152 MG/DL (70-110)
[2016-12-15] MEDS: CALCIUM ACETATE 667 MG CAPSULE PO SCH ×3 (08:00→17:24)
[2016-12-15] MEDS: ACARBOSE 50 MG TABLET PO SCH ×3 (08:00→17:24)
[2016-12-15] MEDS: OXYGEN THERAPY IH SCH (08:00)
[2016-12-15] MEDS: ASPIRIN 81 MG EC TABLET PO SCH (08:14)
[2016-12-15] MEDS: CHOLECALCIFEROL (VIT D3) 2,000 UNITS TABLET PO SCH (08:15)
[2016-12-15] MEDS: VITAMIN B COMP/VIT C/FOLIC ACID CAPSULE PO SCH (08:15)
[2016-12-15 09:24] LABS: BILIRUBIN,TOTAL 0.3 mg/dL (0.1-1.0); CALCIUM, TOTAL 7.8 mg/dL (8.8-10.5); CREATININE 4.83 mg/dL (0.60-1.30); POTASSIUM 3.7 mmol/L (3.5-5.1); TOTAL PROTEIN, SERUM 7.4 g/dL (6.4-8.2)
[2016-12-15] MEDS: CloNIDine HCL 0.1 MG TABLET PO SCH ×2 (11:33→20:14)
[2016-12-15] MEDS: AmLODIPine BESYLATE 5 MG TABLET PO SCH (11:33)
[2016-12-15] MEDS: HydrALAZINE HCL 50 MG TABLET PO SCH ×3 (11:33→20:13)
[2016-12-15] MEDS: ACETAMINOPHEN 325 MG TABLET PO PRN (11:34)
[2016-12-15] MEDS: PrednisoLONE ACETATE 1% 5 ML OPHTHALMIC SUSPENSION OD SCH (11:35)
[2016-12-15] MEDS: LinaGLIPtin 5 MG TABLET PO SCH (11:36)
[2016-12-15 11:44] VITALS: BP 191/86
[2016-12-15] MEDS: HYDROCORTISONE 2.5% 30 GM CREAM TP SCH ×3 (11:44→20:15)
[2016-12-15] MEDS: INSULIN DETEMIR 100 UNITS/ML SQ SCH (11:44)
[2016-12-15 12:21] LABS: GLUCOSE,POINT OF CARE 112 MG/DL (70-110)
[2016-12-15 16:11] VITALS: BP 160/69
[2016-12-15 17:47] LABS: GLUCOSE,POINT OF CARE 131 MG/DL (70-110)
[2016-12-15 19:42] VITALS: BP 155/70
[2016-12-15] MEDS: RAMIPRIL 10 MG CAPSULE PO SCH (20:13)
[2016-12-15] MEDS: ATORVASTATIN CALCIUM 20 MG TABLET PO SCH (20:14)
[2016-12-15] MEDS: TERAZOSIN HCL 5 MG CAPSULE PO SCH (20:14)
[2016-12-15 23:18] VITALS: BP 153/71
[2016-12-16 05:02] VITALS: BP 157/73
[2016-12-16 05:46] LABS: GLUCOSE COMMENT 1 Received Meds; GLUCOSE,POINT OF CARE 139 MG/DL (70-110)
[2016-12-16] MEDS: INSULIN ASPART 100 UNITS/ML SQ PRN (06:06)
[2016-12-16] MEDS: PANTOPRAZOLE SODIUM 40 MG DR TABLET PO SCH (06:32)
[2016-12-16 06:47] LABS: GLUCOSE COMMENT 1 Received Meds; GLUCOSE,POINT OF CARE 147 MG/DL (70-110)
[2016-12-16] MEDS: OXYGEN THERAPY IH SCH (08:00)
[2016-12-16 08:16] VITALS: BP 181/74
[2016-12-16] MEDS: PrednisoLONE ACETATE 1% 5 ML OPHTHALMIC SUSPENSION OD SCH (08:23)
[2016-12-16] MEDS: CALCIUM ACETATE 667 MG CAPSULE PO SCH ×3 (08:23→17:43)
[2016-12-16] MEDS: ACARBOSE 50 MG TABLET PO SCH ×3 (08:24→17:43)
[2016-12-16] MEDS: CloNIDine HCL 0.1 MG TABLET PO SCH ×2 (08:24→20:24)
[2016-12-16] MEDS: ASPIRIN 81 MG EC TABLET PO SCH (08:24)
[2016-12-16] MEDS: CHOLECALCIFEROL (VIT D3) 2,000 UNITS TABLET PO SCH (08:24)
[2016-12-16] MEDS: AmLODIPine BESYLATE 5 MG TABLET PO SCH (08:24)
[2016-12-16] MEDS: HydrALAZINE HCL 50 MG TABLET PO SCH ×4 (08:24→20:24)
[2016-12-16] MEDS: INSULIN DETEMIR 100 UNITS/ML SQ SCH (08:25)
[2016-12-16] MEDS: VITAMIN B COMP/VIT C/FOLIC ACID CAPSULE PO SCH (08:25)
[2016-12-16] MEDS: LinaGLIPtin 5 MG TABLET PO SCH (08:25)
[2016-12-16] MEDS: HYDROCORTISONE 2.5% 30 GM CREAM TP SCH ×3 (08:26→20:24)
[2016-12-16 09:23] LABS: BASOPHILS % (AUTO) 1.6 % (0.0-2.0); EOSINOPHILS % (AUTO) 4.5 % (1.0-6.0); HEMATOCRIT 27.2 % (41-53); LYMPHOCYTES # (AUTO) 0.8 K/uL (1.0-4.8); LYMPHOCYTES % (AUTO) 8.5 % (22.0-44.0); MEAN CORPUSCULAR HEMOGLOBIN 30.2 pg (26.0-34.0); MEAN CORPUSCULAR HGB CONC 32.9 G/dL (31.0-37.0); MEAN CORPUSCULAR VOLUME 92 fL (80-100); MONOCYTES # (AUTO) 0.6 K/uL (0.1-1.0); MONOCYTES % (AUTO) 6.5 % (2.0-9.0); NEUTROPHILS # (AUTO) 7.1 K/uL (1.8-7.7); NEUTROPHILS % (AUTO) 78.9 % (40.0-70.0); PLATELET COUNT (AUTO) 321 K/uL (150-450); RED BLOOD CELL COUNT(AUTO) 2.97 MIL/uL (4.50-5.90); RED CELL DISTRIBUTION WIDTH 17.4 % (11.5-14.5)
[2016-12-16 09:44] LABS: ALBUMIN 2.9 g/dL (3.4-5.0); BILIRUBIN,TOTAL 0.3 mg/dL (0.1-1.0); CREATININE 7.29 mg/dL (0.60-1.30); POTASSIUM 4.8 mmol/L (3.5-5.1)
[2016-12-16 09:54] LABS: RBC MORPHOLOGY COMMENT ABNORMAL RBC MORPH
[2016-12-16 11:15] VITALS: BP 174/78
[2016-12-16 11:27] LABS: GLUCOSE,POINT OF CARE 117 MG/DL (70-110)
[2016-12-16 16:03] VITALS: BP 144/61
[2016-12-16 17:16] LABS: GLUCOSE,POINT OF CARE 113 MG/DL (70-110)
[2016-12-16] MEDS ORDERED: MAGNESIUM CITRATE 300 ML ORAL SOLUTION PO ONE (20:00)
[2016-12-16 20:04] VITALS: BP 189/75
[2016-12-16] MEDS: RAMIPRIL 10 MG CAPSULE PO SCH (20:24)
[2016-12-16] MEDS: ATORVASTATIN CALCIUM 20 MG TABLET PO SCH (20:24)
[2016-12-16] MEDS: TERAZOSIN HCL 5 MG CAPSULE PO SCH (20:24)
[2016-12-16 20:47] LABS: GLUCOSE,POINT OF CARE 131 MG/DL (70-110)
[2016-12-17 00:02] VITALS: BP 171/77
[2016-12-17 04:23] VITALS: BP 161/83
[2016-12-17] MEDS: PANTOPRAZOLE SODIUM 40 MG DR TABLET PO SCH (05:30)
[2016-12-17] MEDS: INSULIN ASPART 100 UNITS/ML SQ PRN (05:31)
[2016-12-17 06:12] LABS: GLUCOSE,POINT OF CARE 141 MG/DL (70-110)
[2016-12-17 07:15] LABS: ALBUMIN 2.9 g/dL (3.4-5.0); BILIRUBIN,TOTAL 0.3 mg/dL (0.1-1.0); CREATININE 9.25 mg/dL (0.60-1.30); POTASSIUM 4.9 mmol/L (3.5-5.1)
[2016-12-17 07:16] VITALS: BP 177/79
[2016-12-17] MEDS: VITAMIN B COMP/VIT C/FOLIC ACID CAPSULE PO SCH (08:05)
[2016-12-17] MEDS: CHOLECALCIFEROL (VIT D3) 2,000 UNITS TABLET PO SCH (08:05)
[2016-12-17] MEDS: ASPIRIN 81 MG EC TABLET PO SCH (08:05)
[2016-12-17] MEDS: PrednisoLONE ACETATE 1% 5 ML OPHTHALMIC SUSPENSION OD SCH (08:06)
[2016-12-17] MEDS: AmLODIPine BESYLATE 5 MG TABLET PO SCH (08:06)
[2016-12-17] MEDS: ACARBOSE 50 MG TABLET PO SCH ×3 (08:06→18:39)
[2016-12-17] MEDS: CALCIUM ACETATE 667 MG CAPSULE PO SCH ×3 (08:07→18:39)
[2016-12-17] MEDS: LinaGLIPtin 5 MG TABLET PO SCH (08:07)
[2016-12-17] MEDS: ACETAMINOPHEN 325 MG TABLET PO PRN (08:07)
[2016-12-17] MEDS: HydrALAZINE HCL 50 MG TABLET PO SCH ×4 (08:08→20:36)
[2016-12-17] MEDS: INSULIN DETEMIR 100 UNITS/ML SQ SCH (08:24)
[2016-12-17] MEDS: HYDROCORTISONE 2.5% 30 GM CREAM TP SCH ×2 (08:28→15:38)
[2016-12-17] MEDS: EPOETIN ALFA 10,000 UNITS/ML VIAL SQ SCH (08:28)
[2016-12-17] MEDS ORDERED: SODIUM CHLORIDE 0.9% 1,000 ML IV ONE (09:45)
[2016-12-17 11:42] LABS: GLUCOSE,POINT OF CARE 114 MG/DL (70-110)
[2016-12-17 15:34] VITALS: BP 164/80
[2016-12-17] MEDS: CloNIDine HCL 0.1 MG TABLET PO SCH (15:37)
[2016-12-17] MEDS ORDERED: HYDR50 PO (17:13)
[2016-12-17] MEDS ORDERED: AMLO-512 PO (17:13)
[2016-12-17] MEDS ORDERED: DOCU250C91 PO (17:14)
[2016-12-17 19:41] VITALS: BP 152/75
[2016-12-17] MEDS: TERAZOSIN HCL 5 MG CAPSULE PO SCH (20:35)
[2016-12-17] MEDS: RAMIPRIL 10 MG CAPSULE PO SCH (20:36)
[2016-12-17] MEDS: ATORVASTATIN CALCIUM 20 MG TABLET PO SCH (20:38)
[2016-12-17] MEDS ORDERED: AmLODIPine BESYLATE 5 MG TABLET PO SCH (21:00)
[2016-12-17 21:12] LABS: GLUCOSE,POINT OF CARE 154 MG/DL (70-110)
[2016-12-24 06:53] LABS: GLUCOSE,POINT OF CARE 128 MG/DL (70-110)
[2016-12-24 06:53] LABS: GLUCOSE,POINT OF CARE 99 MG/DL (70-110)
[2016-12-24 06:54] LABS: GLUCOSE,POINT OF CARE 98 MG/DL (70-110)
== END 2016-12-17 20:45 | disposition home or self-care (01) | DRG 377 ==
LOC: EMS 09:37 → 5S 15:02 → 6N 12-13 12:09
PROVIDERS: ADMIT Internal Medicine; ATTEND Internal Medicine
PROC: 0DJ08ZZ Inspection of Upper Intestinal Tract, Via Natural or Artificial Opening Endoscopic (ICD-10-PCS; 2016-12-13)
PROC: 0DJD8ZZ Inspection of Lower Intestinal Tract, Via Natural or Artificial Opening Endoscopic (ICD-10-PCS; principal; 2016-12-14 12:00)
DX: K62.5 Hemorrhage of anus and rectum (principal); N18.6 End stage renal disease; I13.2 Hypertensive heart and chronic kidney disease with heart failure and with stage 5 chronic kidney disease, or end stage renal disease; I50.32 Chronic diastolic (congestive) heart failure; M86.9 Osteomyelitis, unspecified; K57.90 Diverticulosis of intestine, part unspecified, without perforation or abscess without bleeding; K22.6 Gastro-esophageal laceration-hemorrhage syndrome; E11.22 Type 2 diabetes mellitus with diabetic chronic kidney disease; D50.9 Iron deficiency anemia, unspecified; I44.1 Atrioventricular block, second degree; E11.319 Type 2 diabetes mellitus with unspecified diabetic retinopathy without macular edema; E78.5 Hyperlipidemia, unspecified; E83.42 Hypomagnesemia; E87.5 Hyperkalemia; I73.9 Peripheral vascular disease, unspecified; K44.9 Diaphragmatic hernia without obstruction or gangrene; K29.70 Gastritis, unspecified, without bleeding; K64.4 Residual hemorrhoidal skin tags; N40.0 Benign prostatic hyperplasia without lower urinary tract symptoms; Z79.4 Long term (current) use of insulin; Z87.19 Personal history of other diseases of the digestive system; Z87.891 Personal history of nicotine dependence; Z99.2 Dependence on renal dialysis
CPT/HCPCS: 73718; 82962; 83036; 83540; 83550; 83735; 84100; 84443; 85014; 85018; 86850; 86900; 86901; 86920; 87081; 87340; 90935; 93005; 99285; J0885; J1644; J2250; J2597; J2704; J3010; J3475; J3490; J7030; J7040; J7050; J7060; P9016

== ENCOUNTER 2017-06-08 20:04 | Emergency (ER) | payer MEDICARE, MEDICAID ==
[~2017-06-08] VITALS: Ht 162.6 cm; Wt 72.7 kg
[~2017-06-08 20:04] MED LIST changes: -AMLO-511 PO; +AMLO-512 PO; +CLON-570 PO; -CLON.1 PO; +DOCU250C91 PO; +HYDR-2924 PO; -HYDR50 PO
[2017-06-08 20:37] LABS: GLUCOSE,POINT OF CARE 209 MG/DL (70-110)
[2017-06-08] MEDS ORDERED: ONDANSETRON HCL 4 MG/2 ML VIAL IVP ONE (21:00)
[2017-06-08] MEDS ORDERED: HYDROmorphone 2 MG/ML SYRINGE IVP ONE (21:00)
[2017-06-08] MEDS ORDERED: SODIUM CHLORIDE 0.9% 1,000 ML IV ONE (21:00)
[2017-06-08 21:03] LABS: HEMATOCRIT 40.4 % (41-53); HEMOGLOBIN 13.3 g/dL (13.5-17.5); MEAN CORPUSCULAR HEMOGLOBIN 32.9 pg (26.0-34.0); MEAN CORPUSCULAR VOLUME 100 fL (80-100); PLATELET COUNT (AUTO) 395 K/uL (150-450); RED BLOOD CELL COUNT(AUTO) 4.05 MIL/uL (4.50-5.90); RED CELL DISTRIBUTION WIDTH 18.1 % (11.5-14.5); WHITE BLOOD COUNT (AUTO) 12.7 K/uL (4.5-11.0)
[2017-06-08 21:33] LABS: BAND NEUTROPHILS % (MANUAL) 16 % (1-5); LYMPHOCYTES % (MANUAL) 8 % (22-44); RBC MORPHOLOGY COMMENT ABNORMAL RBC MORPH; TOTAL CELLS COUNTED 100
[2017-06-08 21:38] LABS: CALCIUM, TOTAL 9.2 mg/dL (8.8-10.5); CREATININE 10.98 mg/dL (0.60-1.30); POTASSIUM 5.3 mmol/L (3.5-5.1)
[2017-06-08 21:40] LABS: ALBUMIN 3.4 g/dL (3.4-5.0); BILIRUBIN,TOTAL 0.4 mg/dL (0.1-1.0); TOTAL PROTEIN, SERUM 9.3 g/dL (6.4-8.2)
[2017-06-08 23:41] VITALS: BP 100/66
== END 2017-06-09 00:03 | disposition home or self-care (01) ==
LOC: EMS 20:06
DX: R11.2 Nausea with vomiting, unspecified (principal); R19.7 Diarrhea, unspecified; I12.0 Hypertensive chronic kidney disease with stage 5 chronic kidney disease or end stage renal disease; E11.22 Type 2 diabetes mellitus with diabetic chronic kidney disease; N18.6 End stage renal disease; Z79.4 Long term (current) use of insulin; Z99.2 Dependence on renal dialysis; Z87.891 Personal history of nicotine dependence
CPT/HCPCS: 36415; 74176; 80053; 82962; 83690; 85025; 93005; 96361; 96374; 96375; 99285; J1170; J2405; J7030

== ENCOUNTER 2017-07-18 00:11 | Inpatient (IN) | payer MEDICARE, MEDICAID, OTHER ==
[~2017-07-18] VITALS: Ht 162.6 cm; Wt 76.1 kg
[2017-07-18 01:54] LABS: BASOPHILS % (AUTO) 0.3 % (0.0-2.0); EOSINOPHILS % (AUTO) 0.6 % (1.0-6.0); HEMATOCRIT 40.7 % (41-53); HEMOGLOBIN 13.4 g/dL (13.5-17.5); LYMPHOCYTES # (AUTO) 0.9 K/uL (1.0-4.8); LYMPHOCYTES % (AUTO) 5.8 % (22.0-44.0); MEAN CORPUSCULAR HGB CONC 32.8 G/dL (31.0-37.0); MEAN CORPUSCULAR VOLUME 101 fL (80-100); MONOCYTES # (AUTO) 0.8 K/uL (0.1-1.0); NEUTROPHILS # (AUTO) 14.4 K/uL (1.8-7.7); NEUTROPHILS % (AUTO) 88.3 % (40.0-70.0); PLATELET COUNT (AUTO) 343 K/uL (150-450); RED BLOOD CELL COUNT(AUTO) 4.04 MIL/uL (4.50-5.90); RED CELL DISTRIBUTION WIDTH 17.1 % (11.5-14.5); WHITE BLOOD COUNT (AUTO) 16.3 K/uL (4.5-11.0)
[2017-07-18 02:05] LABS: CALCIUM, TOTAL 9.8 mg/dL (8.8-10.5); CREATININE 8.57 mg/dL (0.60-1.30); POTASSIUM 5.7 mmol/L (3.5-5.1)
[2017-07-18 02:11] LABS: ALBUMIN 3.6 g/dL (3.4-5.0); BILIRUBIN,TOTAL 0.3 mg/dL (0.1-1.0); TOTAL PROTEIN, SERUM 9.7 g/dL (6.4-8.2)
[2017-07-18] MEDS ORDERED: MORPHINE SULFATE 4 MG/ML SYRINGE IVP ONE (03:15)
[2017-07-18] MEDS ORDERED: ONDANSETRON HCL 4 MG/2 ML VIAL IVP ONE (03:15)
[2017-07-18] MEDS ORDERED: 0.9% SODIUM CHLORIDE 10 ML SYRINGE IVP PRN ×2 (04:00→08:45)
[2017-07-18] MEDS ORDERED: ONDANSETRON HCL 4 MG/2 ML VIAL IVP PRN ×2 (04:00→08:45)
[2017-07-18] MEDS ORDERED: ACETAMINOPHEN 325 MG TABLET PO PRN (04:00)
[2017-07-18 04:40] VITALS: BP 119/58
[2017-07-18 05:54] LABS: GLUCOSE,POINT OF CARE 210 MG/DL (70-110)
[2017-07-18 08:20] VITALS: BP 101/56
[2017-07-18] MEDS ORDERED: ZOLPIDEM TARTRATE 5 MG TABLET PO PRN (08:45)
[2017-07-18] MEDS ORDERED: ALBUTEROL SULFATE 2.5 MG/0.5 ML NEB SOLUTION NEB PRN (08:45)
[2017-07-18] MEDS: PANTOPRAZOLE SODIUM 40 MG DR TABLET PO SCH (08:45)
[2017-07-18] MEDS ORDERED: PANTOPRAZOLE SODIUM 40 MG DR TABLET PO SCH (08:45)
[2017-07-18] MEDS ORDERED: DEXTROSE 50%-WATER 25 GM/50 ML SYRINGE IVP PRN (08:45)
[2017-07-18] MEDS ORDERED: IPRATROPIUM BROMIDE 0.5 MG/2.5 ML NEB SOLUTION NEB PRN (08:45)
[2017-07-18] MEDS: CloNIDine HCL 0.1 MG TABLET PO SCH ×2 (09:00→21:00)
[2017-07-18] MEDS: AmLODIPine BESYLATE 10 MG TABLET PO SCH (09:00)
[2017-07-18] MEDS ORDERED: VITAMIN B COMP/VIT C/FOLIC ACID CAPSULE PO SCH (09:00)
[2017-07-18] MEDS: DOCUSATE SODIUM 250 MG CAPSULE PO SCH ×3 (09:05→21:00)
[2017-07-18] MEDS: VITAMIN B COMP/VIT C/FOLIC ACID CAPSULE PO SCH (09:05)
[2017-07-18] MEDS: HydrALAZINE HCL 50 MG TABLET PO SCH ×2 (09:06→21:00)
[2017-07-18] MEDS: ASPIRIN 81 MG EC TABLET PO SCH (09:06)
[2017-07-18] MEDS: HEPARIN SODIUM,PORCINE 5,000 UNITS/ML VIAL SQ SCH ×2 (09:08→21:11)
[2017-07-18] MEDS: INSULIN GLARGINE,HUM.REC.ANLOG 100 UNITS/ML SQ SCH (09:14)
[2017-07-18 11:42] VITALS: BP 105/66
[2017-07-18 11:47] LABS: GLUCOSE COMMENT 1 Received Meds; GLUCOSE,POINT OF CARE 138 MG/DL (70-110)
[2017-07-18] MEDS: CALCIUM ACETATE 667 MG CAPSULE PO SCH ×2 (12:00→18:48)
[2017-07-18] MEDS: ACARBOSE 50 MG TABLET PO SCH ×2 (12:00→18:46)
[2017-07-18 12:50] LABS: GLUCOSE,POINT OF CARE 130 MG/DL (70-110)
[2017-07-18] MEDS ORDERED: SODIUM CHLORIDE 0.9% 2,000 ML IV ONE (14:33)
[2017-07-18] MEDS: INSULIN ASPART 100 UNITS/ML SQ PRN (18:45)
[2017-07-18] MEDS: CHOLECALCIFEROL (VIT D3) 2,000 UNITS TABLET PO SCH (18:46)
[2017-07-18] MEDS: LinaGLIPtin 5 MG TABLET PO SCH (18:47)
[2017-07-18] MEDS: PrednisoLONE ACETATE 1% 5 ML OPHTHALMIC SUSPENSION OD SCH (18:49)
[2017-07-18 19:18] VITALS: BP 104/59
[2017-07-18] MEDS ORDERED: ATORVASTATIN CALCIUM 20 MG TABLET PO SCH (21:00)
[2017-07-18] MEDS ORDERED: RAMIPRIL 10 MG CAPSULE PO SCH (21:00)
[2017-07-18] MEDS ORDERED: TERAZOSIN HCL 5 MG CAPSULE PO SCH (21:00)
[2017-07-18 23:25] VITALS: BP 119/66
[2017-07-19] VITALS (11 sets, daily range): BP systolic 70–133; BP diastolic 41–74
[2017-07-19] MEDS: HYDROCODONE/ACETAMINOPHEN 5-325 MG TABLET PO PRN ×2 (01:34→05:21)
[2017-07-19] MEDS ORDERED: SODIUM CHLORIDE 0.9% 1,000 ML IV ONE (01:56)
[2017-07-19 02:50] LABS: CALCIUM, TOTAL 8.7 mg/dL (8.8-10.5); CREATININE 7.27 mg/dL (0.60-1.30); POTASSIUM 4.9 mmol/L (3.5-5.1)
[2017-07-19 02:55] LABS: BILIRUBIN,TOTAL 0.3 mg/dL (0.1-1.0); TOTAL PROTEIN, SERUM 8.6 g/dL (6.4-8.2)
[2017-07-19] MEDS ORDERED: CefTRIAXone 1 GM/DEXTROSE 50 ML IV ONE (03:00)
[2017-07-19 03:14] LABS: BASOPHILS # (AUTO) 0.03 K/uL (0.00-0.20); BASOPHILS % (AUTO) 0.2 % (0.0-2.0); EOSINOPHILS # (AUTO) 0.22 K/uL (0.00-0.70); EOSINOPHILS % (AUTO) 1.69 % (1.0-6.0); HEMATOCRIT 37.2 % (41-53); HEMOGLOBIN 12.1 g/dL (13.5-17.5); LYMPHOCYTES # (AUTO) 1.3 K/uL (1.0-4.8); LYMPHOCYTES % (AUTO) 10.1 % (22.0-44.0); MEAN CORPUSCULAR HEMOGLOBIN 33.3 pg (26.0-34.0); MEAN CORPUSCULAR HGB CONC 32.4 G/dL (31.0-37.0); MEAN CORPUSCULAR VOLUME 103 fL (80-100); MONOCYTES # (AUTO) 0.9 K/uL (0.1-1.0); MONOCYTES % (AUTO) 7.1 % (2.0-9.0); NEUTROPHILS # (AUTO) 10.3 K/uL (1.8-7.7); NEUTROPHILS % (AUTO) 80.9 % (40.0-70.0); PLATELET COUNT (AUTO) 301 K/uL (150-450); RED BLOOD CELL COUNT(AUTO) 3.62 MIL/uL (4.50-5.90); RED CELL DISTRIBUTION WIDTH 17.2 % (11.5-14.5); WHITE BLOOD COUNT (AUTO) 12.8 K/uL (4.5-11.0)
[2017-07-19] MEDS ORDERED: SODIUM CHLORIDE 0.9% 250 ML IV ONE (03:23)
[2017-07-19 04:12] LABS: RBC MORPHOLOGY COMMENT ABNORMAL RBC MORPH
[2017-07-19 04:38] LABS: GLUCOSE,POINT OF CARE 117 MG/DL (70-110)
[2017-07-19 04:38] LABS: GLUCOSE,POINT OF CARE 103 MG/DL (70-110)
[2017-07-19] MEDS: ONDANSETRON HCL 4 MG TABLET PO PRN ×2 (05:21→08:26)
[2017-07-19] MEDS: INSULIN ASPART 100 UNITS/ML SQ PRN (06:08)
[2017-07-19] MEDS: PANTOPRAZOLE SODIUM 40 MG DR TABLET PO SCH (06:09)
[2017-07-19] MEDS: CALCIUM ACETATE 667 MG CAPSULE PO SCH ×3 (08:00→17:34)
[2017-07-19] MEDS: CHOLECALCIFEROL (VIT D3) 2,000 UNITS TABLET PO SCH (08:26)
[2017-07-19] MEDS: ACARBOSE 50 MG TABLET PO SCH ×3 (08:27→17:34)
[2017-07-19] MEDS: HEPARIN SODIUM,PORCINE 5,000 UNITS/ML VIAL SQ SCH ×2 (08:27→20:19)
[2017-07-19] MEDS: ASPIRIN 81 MG EC TABLET PO SCH (08:27)
[2017-07-19] MEDS: VITAMIN B COMP/VIT C/FOLIC ACID CAPSULE PO SCH (08:27)
[2017-07-19] MEDS: LinaGLIPtin 5 MG TABLET PO SCH (08:27)
[2017-07-19] MEDS: DOCUSATE SODIUM 250 MG CAPSULE PO SCH ×3 (08:28→20:19)
[2017-07-19] MEDS: PrednisoLONE ACETATE 1% 5 ML OPHTHALMIC SUSPENSION OD SCH ×2 (08:28→08:42)
[2017-07-19] MEDS: CloNIDine HCL 0.1 MG TABLET PO SCH (08:28)
[2017-07-19] MEDS: AmLODIPine BESYLATE 10 MG TABLET PO SCH (08:28)
[2017-07-19] MEDS: HydrALAZINE HCL 50 MG TABLET PO SCH (08:28)
[2017-07-19] MEDS: INSULIN GLARGINE,HUM.REC.ANLOG 100 UNITS/ML SQ SCH (08:29)
[2017-07-19 09:06] LABS: BASOPHILS # (AUTO) 0.26 K/uL (0.00-0.20); BASOPHILS % (AUTO) 2.4 % (0.0-2.0); EOSINOPHILS # (AUTO) 0.17 K/uL (0.00-0.70); EOSINOPHILS % (AUTO) 1.61 % (1.0-6.0); HEMATOCRIT 38.3 % (41-53); HEMOGLOBIN 12.4 g/dL (13.5-17.5); LYMPHOCYTES # (AUTO) 1.2 K/uL (1.0-4.8); LYMPHOCYTES % (AUTO) 10.9 % (22.0-44.0); MEAN CORPUSCULAR HEMOGLOBIN 33.4 pg (26.0-34.0); MEAN CORPUSCULAR HGB CONC 32.5 G/dL (31.0-37.0); MEAN CORPUSCULAR VOLUME 103 fL (80-100); MONOCYTES # (AUTO) 0.7 K/uL (0.1-1.0); MONOCYTES % (AUTO) 6.2 % (2.0-9.0); NEUTROPHILS # (AUTO) 8.4 K/uL (1.8-7.7); NEUTROPHILS % (AUTO) 78.8 % (40.0-70.0); PLATELET COUNT (AUTO) 314 K/uL (150-450); RED BLOOD CELL COUNT(AUTO) 3.73 MIL/uL (4.50-5.90); RED CELL DISTRIBUTION WIDTH 16.8 % (11.5-14.5); WHITE BLOOD COUNT (AUTO) 10.7 K/uL (4.5-11.0)
[2017-07-19 09:09] LABS: RBC MORPHOLOGY COMMENT ABNORMAL RBC MORPH
[2017-07-19 09:21] LABS: ALBUMIN 3.1 g/dL (3.4-5.0); BILIRUBIN,DIRECT 0.1 mg/dL (0.00-0.20); BILIRUBIN,TOTAL 0.3 mg/dL (0.1-1.0); CHOL/HDL RATIO 3.5 (4.2-7.3); TOTAL PROTEIN, SERUM 8.3 g/dL (6.4-8.2)
[2017-07-19] MEDS: MetroNIDAZOLE 250 MG/NACL 50 ML IV SCH ×2 (10:08→17:44)
[2017-07-19 10:21] LABS: HEMOGLOBIN A1C 6.8 % (4.5-6.2)
[2017-07-19 10:35] LABS: THYROID STIMULATING HORMONE 1.09 uIU/mL (0.36-3.74)
[2017-07-19 11:21] LABS: GLUCOSE,POINT OF CARE 150 MG/DL (70-110)
[2017-07-19 12:03] LABS: GLUCOSE,POINT OF CARE 93 MG/DL (70-110)
[2017-07-19] MEDS ORDERED: SODIUM CHLORIDE 0.9% 500 ML IV ONE (17:31)
[2017-07-19 18:19] LABS: GLUCOSE,POINT OF CARE 123 MG/DL (70-110)
[2017-07-20] VITALS (7 sets, daily range): BP systolic 99–152; BP diastolic 52–78
[2017-07-20] MEDS: MetroNIDAZOLE 250 MG/NACL 50 ML IV SCH ×3 (02:18→20:35)
[2017-07-20] MEDS: PANTOPRAZOLE SODIUM 40 MG DR TABLET PO SCH (06:13)
[2017-07-20 06:50] LABS: BASOPHILS % (AUTO) 0.2 % (0.0-2.0); EOSINOPHILS % (AUTO) 3.8 % (1.0-6.0); HEMATOCRIT 35.2 % (41-53); HEMOGLOBIN 11.8 g/dL (13.5-17.5); LYMPHOCYTES # (AUTO) 1.2 K/uL (1.0-4.8); LYMPHOCYTES % (AUTO) 12.2 % (22.0-44.0); MEAN CORPUSCULAR HEMOGLOBIN 33.9 pg (26.0-34.0); MEAN CORPUSCULAR HGB CONC 33.5 G/dL (31.0-37.0); MEAN CORPUSCULAR VOLUME 101 fL (80-100); MONOCYTES # (AUTO) 0.7 K/uL (0.1-1.0); MONOCYTES % (AUTO) 6.9 % (2.0-9.0); NEUTROPHILS # (AUTO) 7.7 K/uL (1.8-7.7); NEUTROPHILS % (AUTO) 76.9 % (40.0-70.0); PLATELET COUNT (AUTO) 332 K/uL (150-450); RED BLOOD CELL COUNT(AUTO) 3.47 MIL/uL (4.50-5.90); RED CELL DISTRIBUTION WIDTH 16.9 % (11.5-14.5); WHITE BLOOD COUNT (AUTO) 10.1 K/uL (4.5-11.0)
[2017-07-20 07:22] LABS: ALBUMIN 2.8 g/dL (3.4-5.0); BILIRUBIN,TOTAL 0.3 mg/dL (0.1-1.0); CALCIUM, TOTAL 7.7 mg/dL (8.8-10.5); CREATININE 10.55 mg/dL (0.60-1.30); MAGNESIUM 1.7 mg/dL (1.80-2.40); PHOSPHORUS 8.7 mg/dL (2.5-4.9); POTASSIUM 5.2 mmol/L (3.5-5.1); TOTAL PROTEIN, SERUM 7.6 g/dL (6.4-8.2)
[2017-07-20 07:48] LABS: GLUCOSE,POINT OF CARE 118 MG/DL (70-110)
[2017-07-20 07:48] LABS: GLUCOSE,POINT OF CARE 84 MG/DL (70-110)
[2017-07-20 07:57] LABS: GLUCOSE,POINT OF CARE 128 MG/DL (70-110)
[2017-07-20] MEDS: INSULIN GLARGINE,HUM.REC.ANLOG 100 UNITS/ML SQ SCH (09:00)
[2017-07-20] MEDS: PrednisoLONE ACETATE 1% 5 ML OPHTHALMIC SUSPENSION OD SCH (09:00)
[2017-07-20] MEDS: CALCIUM ACETATE 667 MG CAPSULE PO SCH ×3 (09:02→18:22)
[2017-07-20] MEDS: ACARBOSE 50 MG TABLET PO SCH ×3 (09:02→18:22)
[2017-07-20] MEDS: VITAMIN B COMP/VIT C/FOLIC ACID CAPSULE PO SCH (09:02)
[2017-07-20] MEDS: DOCUSATE SODIUM 250 MG CAPSULE PO SCH ×3 (09:02→21:10)
[2017-07-20] MEDS: CHOLECALCIFEROL (VIT D3) 2,000 UNITS TABLET PO SCH (09:03)
[2017-07-20] MEDS: HEPARIN SODIUM,PORCINE 5,000 UNITS/ML VIAL SQ SCH ×2 (09:03→21:10)
[2017-07-20] MEDS: LinaGLIPtin 5 MG TABLET PO SCH (09:03)
[2017-07-20] MEDS: ASPIRIN 81 MG EC TABLET PO SCH (09:20)
[2017-07-20 11:03] LABS: RBC MORPHOLOGY COMMENT ABNORMAL RBC MORPH
[2017-07-20] MEDS: CefTRIAXone 1 GM/DEXTROSE 50 ML IV SCH (20:35)
[2017-07-21] MEDS: MetroNIDAZOLE 250 MG/NACL 50 ML IV SCH ×3 (03:41→17:54)
[2017-07-21 04:28] LABS: GLUCOSE,POINT OF CARE 128 MG/DL (70-110)
[2017-07-21 04:28] LABS: GLUCOSE,POINT OF CARE 122 MG/DL (70-110)
[2017-07-21 04:28] LABS: GLUCOSE,POINT OF CARE 131 MG/DL (70-110)
[2017-07-21 04:47] VITALS: BP 157/81
[2017-07-21] MEDS: PANTOPRAZOLE SODIUM 40 MG DR TABLET PO SCH (06:34)
[2017-07-21 07:08] LABS: GLUCOSE COMMENT 1 Received Meds; GLUCOSE,POINT OF CARE 160 MG/DL (70-110)
[2017-07-21 07:33] VITALS: BP 136/64
[2017-07-21] MEDS: VITAMIN B COMP/VIT C/FOLIC ACID CAPSULE PO SCH (08:17)
[2017-07-21] MEDS: CALCIUM ACETATE 667 MG CAPSULE PO SCH ×3 (08:17→17:54)
[2017-07-21] MEDS: ACARBOSE 50 MG TABLET PO SCH ×3 (08:17→17:54)
[2017-07-21] MEDS: LinaGLIPtin 5 MG TABLET PO SCH (08:17)
[2017-07-21] MEDS: ASPIRIN 81 MG EC TABLET PO SCH (08:17)
[2017-07-21] MEDS: CHOLECALCIFEROL (VIT D3) 2,000 UNITS TABLET PO SCH (08:17)
[2017-07-21] MEDS: HEPARIN SODIUM,PORCINE 5,000 UNITS/ML VIAL SQ SCH ×2 (08:17→20:04)
[2017-07-21] MEDS: DOCUSATE SODIUM 250 MG CAPSULE PO SCH ×3 (08:17→20:05)
[2017-07-21] MEDS: PrednisoLONE ACETATE 1% 5 ML OPHTHALMIC SUSPENSION OD SCH (08:18)
[2017-07-21] MEDS: INSULIN GLARGINE,HUM.REC.ANLOG 100 UNITS/ML SQ SCH (08:22)
[2017-07-21 11:31] VITALS: BP 160/73
[2017-07-21 11:57] LABS: GLUCOSE,POINT OF CARE 89 MG/DL (70-110)
[2017-07-21] MEDS: CefTRIAXone 1 GM/DEXTROSE 50 ML IV SCH (15:15)
[2017-07-21 16:23] VITALS: BP 165/76
[2017-07-21] MEDS: AmLODIPine BESYLATE 10 MG TABLET PO SCH (16:36)
[2017-07-21 18:04] LABS: GLUCOSE,POINT OF CARE 127 MG/DL (70-110)
[2017-07-21 19:13] VITALS: BP 170/80
[2017-07-21] MEDS: CloNIDine HCL 0.1 MG TABLET PO SCH (20:04)
[2017-07-21 23:27] VITALS: BP 162/72
[2017-07-22] VITALS (7 sets, daily range): BP systolic 111–178; BP diastolic 50–94
[2017-07-22] MEDS: MetroNIDAZOLE 250 MG/NACL 50 ML IV SCH ×2 (01:46→10:00)
[2017-07-22] MEDS: ACETAMINOPHEN 325 MG TABLET PO PRN ×2 (03:35→20:22)
[2017-07-22] MEDS: PANTOPRAZOLE SODIUM 40 MG DR TABLET PO SCH (05:28)
[2017-07-22 06:54] LABS: BASOPHILS % (AUTO) 0.5 % (0.0-2.0); EOSINOPHILS % (AUTO) 4.3 % (1.0-6.0); HEMATOCRIT 34.9 % (41-53); HEMOGLOBIN 11.9 g/dL (13.5-17.5); LYMPHOCYTES # (AUTO) 1.2 K/uL (1.0-4.8); LYMPHOCYTES % (AUTO) 10.7 % (22.0-44.0); MEAN CORPUSCULAR VOLUME 100 fL (80-100); MONOCYTES # (AUTO) 0.9 K/uL (0.1-1.0); MONOCYTES % (AUTO) 8.3 % (2.0-9.0); NEUTROPHILS # (AUTO) 8.4 K/uL (1.8-7.7); NEUTROPHILS % (AUTO) 76.2 % (40.0-70.0); PLATELET COUNT (AUTO) 379 K/uL (150-450); RED BLOOD CELL COUNT(AUTO) 3.49 MIL/uL (4.50-5.90); RED CELL DISTRIBUTION WIDTH 16.5 % (11.5-14.5); WHITE BLOOD COUNT (AUTO) 11.1 K/uL (4.5-11.0)
[2017-07-22 07:15] LABS: CALCIUM, TOTAL 8.5 mg/dL (8.8-10.5); CREATININE 11.01 mg/dL (0.60-1.30); MAGNESIUM 1.7 mg/dL (1.80-2.40); PHOSPHORUS 8.2 mg/dL (2.5-4.9); POTASSIUM 5.8 mmol/L (3.5-5.1)
[2017-07-22] MEDS: ACARBOSE 50 MG TABLET PO SCH ×3 (07:55→17:50)
[2017-07-22] MEDS: INSULIN GLARGINE,HUM.REC.ANLOG 100 UNITS/ML SQ SCH (07:56)
[2017-07-22] MEDS: LinaGLIPtin 5 MG TABLET PO SCH (07:56)
[2017-07-22] MEDS: HEPARIN SODIUM,PORCINE 5,000 UNITS/ML VIAL SQ SCH ×2 (07:56→20:22)
[2017-07-22] MEDS: ASPIRIN 81 MG EC TABLET PO SCH (07:57)
[2017-07-22] MEDS: CALCIUM ACETATE 667 MG CAPSULE PO SCH ×3 (08:00→20:22)
[2017-07-22] MEDS: CloNIDine HCL 0.1 MG TABLET PO SCH ×2 (09:00→20:22)
[2017-07-22] MEDS: PrednisoLONE ACETATE 1% 5 ML OPHTHALMIC SUSPENSION OD SCH (09:00)
[2017-07-22] MEDS: DOCUSATE SODIUM 250 MG CAPSULE PO SCH ×4 (09:00→21:00)
[2017-07-22] MEDS: AmLODIPine BESYLATE 10 MG TABLET PO SCH ×2 (09:00→17:49)
[2017-07-22] MEDS ORDERED: SODIUM CHLORIDE 0.9% 100 ML ONE (09:49)
[2017-07-22] MEDS ORDERED: SODIUM CHLORIDE 0.9% 1,000 ML IV ONE ×2 (09:50→09:53)
[2017-07-22] MEDS ORDERED: BUPIVACAINE HCL/PF 0.5% 30 ML VIAL ONE (09:53)
[2017-07-22] MEDS ORDERED: LIDOCAINE HCL 1%/EPI 1:200,000/PF 30 ML VIAL ONE (09:53)
[2017-07-22] MEDS ORDERED: GUM MASTIC/STORAX/MSAL/ALCOHOL LIQUID 0.67 ML VIAL TP ONE (09:53)
[2017-07-22] MEDS ORDERED: IOHEXOL 240 MG/ML 20 ML VIAL ONE (09:53)
[2017-07-22] MEDS ORDERED: MANNITOL 25%-12.5 GM/50 ML VIAL IVP PRN (10:45)
[2017-07-22] MEDS ORDERED: RINGERS SOLUTION,LACTATED 1,000 ML IV ONE ×2 (13:00→13:10)
[2017-07-22 14:06] LABS: ABG BASE EXCESS 1.7 mmol/L (-2.0-3.0); ABG HCO3 26.4 mmol/L (22.0-26.0); ABG PCO2 32 mmHg (35-45); ABG PH 7.506 (7.35-7.450); TEMPERATURE, FAHRENHEIT, BG 98.6 FAHREN (96.0-98.6)
[2017-07-22 14:07] LABS: ABG A-A DIFF O2 19.5 mmHg (10-20.0); ABG OXYHEMOGLOBIN 95.8 % (94.0-100.0)
[2017-07-22] MEDS ORDERED: FentaNYL CITRATE-PF 100 MCG/2 ML VIAL IVP PRN (14:45)
[2017-07-22] MEDS ORDERED: HYDROmorphone 2 MG/ML SYRINGE IVP PRN (14:45)
[2017-07-22] MEDS ORDERED: MEPERIDINE-PF 25 MG/ML SYRINGE IVP PRN (14:45)
[2017-07-22] MEDS ORDERED: ACETAMINOPHEN 325 MG TABLET PO PRN (15:15)
[2017-07-22] MEDS ORDERED: HYDROCODONE/ACETAMINOPHEN 5-325 MG TABLET PO PRN (15:15)
[2017-07-22] MEDS ORDERED: MORPHINE SULFATE 2 MG/ML SYRINGE IVP PRN (15:15)
[2017-07-22] MEDS: VITAMIN B COMP/VIT C/FOLIC ACID CAPSULE PO SCH (17:50)
[2017-07-22] MEDS: CefTRIAXone 1 GM/DEXTROSE 50 ML IV SCH (17:50)
[2017-07-22] MEDS: CHOLECALCIFEROL (VIT D3) 2,000 UNITS TABLET PO SCH (17:50)
[2017-07-22] MEDS: OXYGEN THERAPY IH SCH (20:00)
[2017-07-22 20:03] LABS: GLUCOSE,POINT OF CARE 98 MG/DL (70-110)
[2017-07-22 20:03] LABS: GLUCOSE,POINT OF CARE 109 MG/DL (70-110)
[2017-07-22] MEDS: MetroNIDAZOLE 250 MG TABLET PO SCH (20:23)
[2017-07-22] MEDS: INSULIN ASPART 100 UNITS/ML SQ PRN (20:25)
[2017-07-23 04:02] LABS: GLUCOSE,POINT OF CARE 179 MG/DL (70-110)
[2017-07-23 04:07] LABS: GLUCOSE,POINT OF CARE 111 MG/DL (70-110)
[2017-07-23 04:18] LABS: GLUCOSE,POINT OF CARE 106 MG/DL (70-110)
[2017-07-23 04:30] VITALS: BP 155/79
[2017-07-23] MEDS: ACETAMINOPHEN 325 MG TABLET PO PRN (04:54)
[2017-07-23] MEDS ORDERED: PROPOFOL 1% 20 ML VIAL IVP ONE (04:58)
[2017-07-23] MEDS ORDERED: ROCURONIUM BROMIDE 10 MG/ML 5 ML VIAL IVP ONE (04:58)
[2017-07-23] MEDS ORDERED: NEOSTIGMINE METHYLSULFATE 1 MG/ML 10 ML VIAL IVP ONE (04:58)
[2017-07-23] MEDS ORDERED: ESMOLOL HCL 10 MG/ML 10 ML VIAL IVP ONE (04:58)
[2017-07-23] MEDS ORDERED: GLYCOPYRROLATE 0.2 MG/ML VIAL IM ONE (04:58)
[2017-07-23] MEDS ORDERED: LIDOCAINE HCL/PF 2% 5 ML VIAL IM ONE (04:58)
[2017-07-23] MEDS ORDERED: FentaNYL CITRATE-PF 100 MCG/2 ML VIAL IVP ONE (05:29)
[2017-07-23] MEDS: PANTOPRAZOLE SODIUM 40 MG DR TABLET PO SCH (05:59)
[2017-07-23 07:34] VITALS: BP 163/85
[2017-07-23] MEDS: VITAMIN B COMP/VIT C/FOLIC ACID CAPSULE PO SCH (08:23)
[2017-07-23] MEDS: OXYGEN THERAPY IH SCH (08:23)
[2017-07-23] MEDS: ASPIRIN 81 MG EC TABLET PO SCH (08:24)
[2017-07-23] MEDS: HEPARIN SODIUM,PORCINE 5,000 UNITS/ML VIAL SQ SCH (08:24)
[2017-07-23] MEDS: AmLODIPine BESYLATE 10 MG TABLET PO SCH (08:24)
[2017-07-23] MEDS: CloNIDine HCL 0.1 MG TABLET PO SCH (08:24)
[2017-07-23] MEDS: MetroNIDAZOLE 250 MG TABLET PO SCH ×2 (08:24→16:03)
[2017-07-23] MEDS: ACARBOSE 50 MG TABLET PO SCH ×2 (08:25→12:32)
[2017-07-23] MEDS: CALCIUM ACETATE 667 MG CAPSULE PO SCH ×2 (08:25→12:32)
[2017-07-23] MEDS: LinaGLIPtin 5 MG TABLET PO SCH (08:27)
[2017-07-23] MEDS: CHOLECALCIFEROL (VIT D3) 2,000 UNITS TABLET PO SCH (08:27)
[2017-07-23] MEDS: INSULIN GLARGINE,HUM.REC.ANLOG 100 UNITS/ML SQ SCH (08:33)
[2017-07-23] MEDS: PrednisoLONE ACETATE 1% 5 ML OPHTHALMIC SUSPENSION OD SCH (08:42)
[2017-07-23] MEDS: DOCUSATE SODIUM 250 MG CAPSULE PO SCH ×2 (08:42→16:00)
[2017-07-23] MEDS ORDERED: LEVOFLOXACIN 250 MG TABLET PO SCH (09:00)
[2017-07-23 11:29] VITALS: BP 167/78
[2017-07-23] MEDS ORDERED: LEVO250T2 PO (15:37)
[2017-07-23] MEDS ORDERED: METR250T PO (15:39)
[2017-07-24 02:33] LABS: GLUCOSE COMMENT 1 Received Meds; GLUCOSE,POINT OF CARE 160 MG/DL (70-110)
[2017-07-27 20:53] LABS: GLUCOSE,POINT OF CARE 123 MG/DL (70-110)
== END 2017-07-23 17:50 | disposition home or self-care (01) | DRG 853 ==
LOC: EMS 00:13 → 6N 04:03 → ICU 07-19 03:00 → 5N 07-19 17:15 → 5S 07-22 02:00
PROVIDERS: ADMIT Internal Medicine; ATTEND Internal Medicine
PROC: 5A1D70Z Performance of Urinary Filtration, Intermittent, Less than 6 Hours Per Day (ICD-10-PCS; 2017-07-18)
PROC: 5A1D70Z Performance of Urinary Filtration, Intermittent, Less than 6 Hours Per Day (ICD-10-PCS; 2017-07-20)
PROC: 5A1D70Z Performance of Urinary Filtration, Intermittent, Less than 6 Hours Per Day (ICD-10-PCS; 2017-07-22)
PROC: 0FT44ZZ Resection of Gallbladder, Percutaneous Endoscopic Approach (ICD-10-PCS; principal; 2017-07-22 14:15)
DX: A41.9 Sepsis, unspecified organism (principal); K85.90 Acute pancreatitis without necrosis or infection, unspecified; R57.9 Shock, unspecified; I13.2 Hypertensive heart and chronic kidney disease with heart failure and with stage 5 chronic kidney disease, or end stage renal disease; E11.22 Type 2 diabetes mellitus with diabetic chronic kidney disease; N18.6 End stage renal disease; E11.51 Type 2 diabetes mellitus with diabetic peripheral angiopathy without gangrene; K80.12 Calculus of gallbladder with acute and chronic cholecystitis without obstruction; I50.30 Unspecified diastolic (congestive) heart failure; E87.5 Hyperkalemia; E11.319 Type 2 diabetes mellitus with unspecified diabetic retinopathy without macular edema; K52.9 Noninfective gastroenteritis and colitis, unspecified; D64.9 Anemia, unspecified; E78.5 Hyperlipidemia, unspecified; N40.0 Benign prostatic hyperplasia without lower urinary tract symptoms; Z79.4 Long term (current) use of insulin; Z82.49 Family history of ischemic heart disease and other diseases of the circulatory system; Z87.891 Personal history of nicotine dependence; Z99.2 Dependence on renal dialysis; Z83.3 Family history of diabetes mellitus
CPT/HCPCS: 74022; 74181; 78226; 82805; 82962; 83036; 83735; 84100; 84132; 84145; 84443; 87040; 87081; 87340; 88304; 90935; 93005; 93306; 96374; 96375; 99285; A9537; J0696; J1644; J1815; J2270; J2405; J2704; J3010; J3490; J7030; J7040; J7050; J7120; Q0162; Q9966

== ENCOUNTER 2017-08-25 17:55 | Inpatient (IN) | payer MEDICARE, MEDICAID ==
[~2017-08-25] VITALS: Ht 162.6 cm; Wt 73.6 kg
[~2017-08-25 17:55] MED LIST changes: -HYDR-2924 PO; +LEVO250T2 PO; +MANNITOL 25%-12.5 GM/50 ML VIAL IVP ONE; +METR250T PO
[2017-08-25] MEDS ORDERED: HYDR100T28 PO (18:07)
[2017-08-25] MEDS ORDERED: NIFE90TA45 PO (18:07)
[2017-08-25] MEDS ORDERED: CILO100T PO (18:07)
[2017-08-25] MEDS ORDERED: METO-408 PO (18:07)
[2017-08-25] MEDS ORDERED: SIMV10TA6 PO (18:07)
[2017-08-25] MEDS ORDERED: CINA30 PO (18:07)
[2017-08-25] MEDS ORDERED: ONDANSETRON HCL 4 MG/2 ML VIAL IVP ONE (18:30)
[2017-08-25 18:33] LABS: BASOPHILS # (AUTO) 0.06 K/uL (0.00-0.20); BASOPHILS % (AUTO) 0.4 % (0.0-2.0); EOSINOPHILS # (AUTO) 0.22 K/uL (0.00-0.70); EOSINOPHILS % (AUTO) 1.32 % (1.0-6.0); HEMATOCRIT 40.9 % (41-53); HEMOGLOBIN 13.7 g/dL (13.5-17.5); LYMPHOCYTES # (AUTO) 2.4 K/uL (1.0-4.8); LYMPHOCYTES % (AUTO) 14.4 % (22.0-44.0); MEAN CORPUSCULAR HEMOGLOBIN 33.7 pg (26.0-34.0); MEAN CORPUSCULAR HGB CONC 33.4 G/dL (31.0-37.0); MEAN CORPUSCULAR VOLUME 101 fL (80-100); MONOCYTES % (AUTO) 5.9 % (2.0-9.0); NEUTROPHILS # (AUTO) 13.2 K/uL (1.8-7.7); NEUTROPHILS % (AUTO) 77.9 % (40.0-70.0); PLATELET COUNT (AUTO) 436 K/uL (150-450); RED BLOOD CELL COUNT(AUTO) 4.06 MIL/uL (4.50-5.90); RED CELL DISTRIBUTION WIDTH 16.4 % (11.5-14.5); WHITE BLOOD COUNT (AUTO) 16.9 K/uL (4.5-11.0)
[2017-08-25] MEDS ORDERED: ONDANSETRON HCL 4 MG/2 ML VIAL IM ONE (18:45)
[2017-08-25 18:48] LABS: BILIRUBIN,TOTAL 0.5 mg/dL (0.1-1.0); CALCIUM, TOTAL 10.3 mg/dL (8.8-10.5); CREATININE 13.41 mg/dL (0.60-1.30); TOTAL PROTEIN, SERUM 10.6 g/dL (6.4-8.2)
[2017-08-25 18:50] LABS: POTASSIUM 6.1 mmol/L (3.5-5.1)
[2017-08-25] MEDS ORDERED: ALBUTEROL SULFATE 2.5 MG/0.5 ML NEB SOLUTION NEB PRN (19:30)
[2017-08-25] MEDS ORDERED: CALCIUM GLUCONATE 100 MG/ML 10 ML IVP ONE (19:30)
[2017-08-25] MEDS ORDERED: IPRATROPIUM BROMIDE 0.5 MG/2.5 ML NEB SOLUTION NEB PRN (19:30)
[2017-08-25] MEDS ORDERED: MetroNIDAZOLE 500 MG/NACL 100 ML IV ONE (19:30)
[2017-08-25] MEDS ORDERED: DEXTROSE 50%-WATER 25 GM/50 ML SYRINGE IVP ONE (19:30)
[2017-08-25] MEDS ORDERED: INSULIN REGULAR, HUMAN 100 UNITS/ML IVP ONE (19:30)
[2017-08-25] MEDS ORDERED: ONDANSETRON HCL 4 MG/2 ML VIAL IVP PRN (19:30)
[2017-08-25] MEDS ORDERED: ZOLPIDEM TARTRATE 5 MG TABLET PO PRN (19:30)
[2017-08-25] MEDS ORDERED: DEXTROSE 50%-WATER 25 GM/50 ML SYRINGE IVP PRN (19:30)
[2017-08-25 20:40] VITALS: BP 113/46
[2017-08-25] MEDS ORDERED: SODIUM CHLORIDE 0.9% 1,000 ML IV ONE ×2 (20:40)
[2017-08-25] MEDS: TERAZOSIN HCL 5 MG CAPSULE PO SCH (22:00)
[2017-08-26] VITALS (7 sets, daily range): BP systolic 105–130; BP diastolic 57–66
[2017-08-26] MEDS: HEPARIN SODIUM,PORCINE 5,000 UNITS/ML VIAL SQ SCH ×3 (00:50→21:04)
[2017-08-26] MEDS ORDERED: PIPERACILLIN SODIUM/TAZOBACTAM 2.25 GM in DEXTROSE 5%-WATER 50 ML IV ONE (01:00)
[2017-08-26] MEDS ORDERED: SODIUM CHLORIDE 0.9% 250 ML IV ONE (01:02)
[2017-08-26] MEDS: MetroNIDAZOLE 500 MG/NACL 100 ML IV SCH ×3 (03:18→21:03)
[2017-08-26] MEDS: CILOSTAZOL 100 MG TABLET PO SCH ×2 (05:59→16:57)
[2017-08-26] MEDS: INSULIN ASPART 100 UNITS/ML SQ PRN ×3 (06:00→17:39)
[2017-08-26 07:25] LABS: BASOPHILS # (AUTO) 0.05 K/uL (0.00-0.20); BASOPHILS % (AUTO) 0.5 % (0.0-2.0); EOSINOPHILS # (AUTO) 0.19 K/uL (0.00-0.70); EOSINOPHILS % (AUTO) 1.83 % (1.0-6.0); HEMATOCRIT 36.7 % (41-53); LYMPHOCYTES # (AUTO) 0.9 K/uL (1.0-4.8); LYMPHOCYTES % (AUTO) 8.7 % (22.0-44.0); MEAN CORPUSCULAR HEMOGLOBIN 33.1 pg (26.0-34.0); MEAN CORPUSCULAR HGB CONC 32.8 G/dL (31.0-37.0); MEAN CORPUSCULAR VOLUME 101 fL (80-100); MONOCYTES # (AUTO) 0.6 K/uL (0.1-1.0); MONOCYTES % (AUTO) 5.8 % (2.0-9.0); NEUTROPHILS # (AUTO) 8.6 K/uL (1.8-7.7); NEUTROPHILS % (AUTO) 83.1 % (40.0-70.0); PLATELET COUNT (AUTO) 355 K/uL (150-450); RED BLOOD CELL COUNT(AUTO) 3.63 MIL/uL (4.50-5.90); RED CELL DISTRIBUTION WIDTH 16.4 % (11.5-14.5); WHITE BLOOD COUNT (AUTO) 10.4 K/uL (4.5-11.0)
[2017-08-26 07:26] LABS: RBC MORPHOLOGY COMMENT ABNORMAL RBC MORPH
[2017-08-26 07:50] LABS: ALBUMIN 3.3 g/dL (3.4-5.0); BILIRUBIN,TOTAL 0.4 mg/dL (0.1-1.0); CALCIUM, TOTAL 8.8 mg/dL (8.8-10.5); CHOL/HDL RATIO 4.9 (4.2-7.3); CREATININE 9.46 mg/dL (0.60-1.30); MAGNESIUM 1.8 mg/dL (1.80-2.40); PHOSPHORUS 8.3 mg/dL (2.5-4.9); POTASSIUM 4.8 mmol/L (3.5-5.1); TOTAL PROTEIN, SERUM 8.9 g/dL (6.4-8.2)
[2017-08-26 07:52] LABS: VITAMIN B12 LEVEL 1550 pg/mL (211-911)
[2017-08-26 07:53] LABS: GLUCOSE COMMENT 1 Received Meds; GLUCOSE,POINT OF CARE 179 MG/DL (70-110)
[2017-08-26] MEDS: PANTOPRAZOLE SODIUM 40 MG/VIAL IVP SCH (08:22)
[2017-08-26] MEDS: ASPIRIN 81 MG EC TABLET PO SCH (08:23)
[2017-08-26] MEDS: PrednisoLONE ACETATE 1% 5 ML OPHTHALMIC SUSPENSION OD SCH (08:31)
[2017-08-26 08:44] LABS: LACTIC ACID 2.8 mmol/L (0.4-2.0)
[2017-08-26 09:12] LABS: REFLEX LACTIC ACID? YES YES
[2017-08-26 20:24] LABS: OCCULT BLOOD STOOL SINGLE ONLY POSITIVE (NEGATIVE)
[2017-08-26] MEDS: TERAZOSIN HCL 5 MG CAPSULE PO SCH (21:03)
[2017-08-26 23:09] LABS: GLUCOSE COMMENT 1 Received Meds; GLUCOSE,POINT OF CARE 213 MG/DL (70-110)
[2017-08-26 23:09] LABS: GLUCOSE COMMENT 1 Received Meds; GLUCOSE,POINT OF CARE 215 MG/DL (70-110)
[2017-08-27 01:17] LABS: GLUCOSE,POINT OF CARE 153 MG/DL (70-110)
[2017-08-27] MEDS: ACETAMINOPHEN 325 MG TABLET PO PRN ×3 (02:18→17:45)
[2017-08-27 04:52] VITALS: BP 144/67
[2017-08-27] MEDS: CILOSTAZOL 100 MG TABLET PO SCH ×2 (05:51→22:04)
[2017-08-27 06:13] LABS: GLUCOSE,POINT OF CARE 131 MG/DL (70-110)
[2017-08-27 07:41] VITALS: BP 157/74
[2017-08-27] MEDS: PANTOPRAZOLE SODIUM 40 MG/VIAL IVP SCH (08:15)
[2017-08-27] MEDS: ASPIRIN 81 MG EC TABLET PO SCH (08:15)
[2017-08-27] MEDS: MetroNIDAZOLE 500 MG TABLET PO SCH ×3 (08:15→22:04)
[2017-08-27] MEDS: HEPARIN SODIUM,PORCINE 5,000 UNITS/ML VIAL SQ SCH ×2 (08:15→21:00)
[2017-08-27] MEDS: PrednisoLONE ACETATE 1% 5 ML OPHTHALMIC SUSPENSION OD SCH (08:16)
[2017-08-27] MEDS: METOPROLOL SUCCINATE 25 MG ER TABLET PO SCH (08:35)
[2017-08-27] MEDS ORDERED: RAMIPRIL 10 MG CAPSULE PO SCH (09:00)
[2017-08-27 10:28] LABS: BASOPHILS % (AUTO) 0.1 % (0.0-2.0); EOSINOPHILS % (AUTO) 4.6 % (1.0-6.0); HEMATOCRIT 29.9 % (41-53); HEMOGLOBIN 10.4 g/dL (13.5-17.5); LYMPHOCYTES # (AUTO) 1.1 K/uL (1.0-4.8); LYMPHOCYTES % (AUTO) 14.2 % (22.0-44.0); MEAN CORPUSCULAR HEMOGLOBIN 34.3 pg (26.0-34.0); MEAN CORPUSCULAR HGB CONC 34.6 G/dL (31.0-37.0); MEAN CORPUSCULAR VOLUME 99 fL (80-100); MONOCYTES # (AUTO) 0.5 K/uL (0.1-1.0); MONOCYTES % (AUTO) 6.5 % (2.0-9.0); NEUTROPHILS # (AUTO) 5.9 K/uL (1.8-7.7); NEUTROPHILS % (AUTO) 74.6 % (40.0-70.0); PLATELET COUNT (AUTO) 336 K/uL (150-450); RED BLOOD CELL COUNT(AUTO) 3.02 MIL/uL (4.50-5.90); RED CELL DISTRIBUTION WIDTH 15.7 % (11.5-14.5)
[2017-08-27 10:35] LABS: CALCIUM, TOTAL 7.4 mg/dL (8.8-10.5); CREATININE 12.25 mg/dL (0.60-1.30); POTASSIUM 5.7 mmol/L (3.5-5.1)
[2017-08-27 11:26] VITALS: BP 143/73
[2017-08-27] MEDS: INSULIN ASPART 100 UNITS/ML SQ PRN (12:30)
[2017-08-27 12:35] VITALS: BP 139/60
[2017-08-27 16:18] VITALS: BP 157/75
[2017-08-27] MEDS ORDERED: ALBUMIN HUMAN 25%-12.5GM/50ML IV BOTTLE IV PRN (17:15)
[2017-08-27] MEDS ORDERED: MANNITOL 25%-12.5 GM/50 ML VIAL IVP PRN (17:15)
[2017-08-27 19:26] VITALS: BP 151/76
[2017-08-27 20:07] LABS: GLUCOSE,POINT OF CARE 139 MG/DL (70-110)
[2017-08-27] MEDS: TERAZOSIN HCL 5 MG CAPSULE PO SCH (22:04)
[2017-08-27 23:53] LABS: OVA AND PARASITES EXAM Final report
[2017-08-28 00:45] VITALS: BP 144/68
[2017-08-28 04:31] VITALS: BP 118/52
[2017-08-28] MEDS: CILOSTAZOL 100 MG TABLET PO SCH (05:52)
[2017-08-28] MEDS: INSULIN ASPART 100 UNITS/ML SQ PRN ×2 (05:54→11:52)
[2017-08-28 07:40] LABS: BASOPHILS # (AUTO) 0.01 K/uL (0.00-0.20); BASOPHILS % (AUTO) 0.1 % (0.0-2.0); EOSINOPHILS # (AUTO) 0.44 K/uL (0.00-0.70); EOSINOPHILS % (AUTO) 4.63 % (1.0-6.0); HEMATOCRIT 31.5 % (41-53); HEMOGLOBIN 10.4 g/dL (13.5-17.5); LYMPHOCYTES % (AUTO) 9.9 % (22.0-44.0); MEAN CORPUSCULAR HEMOGLOBIN 33.5 pg (26.0-34.0); MEAN CORPUSCULAR HGB CONC 33.2 G/dL (31.0-37.0); MEAN CORPUSCULAR VOLUME 101 fL (80-100); MONOCYTES # (AUTO) 0.6 K/uL (0.1-1.0); MONOCYTES % (AUTO) 6.1 % (2.0-9.0); NEUTROPHILS # (AUTO) 7.6 K/uL (1.8-7.7); NEUTROPHILS % (AUTO) 79.3 % (40.0-70.0); PLATELET COUNT (AUTO) 299 K/uL (150-450); RED BLOOD CELL COUNT(AUTO) 3.11 MIL/uL (4.50-5.90); RED CELL DISTRIBUTION WIDTH 16.1 % (11.5-14.5); WHITE BLOOD COUNT (AUTO) 9.6 K/uL (4.5-11.0)
[2017-08-28 07:51] LABS: CALCIUM, TOTAL 7.9 mg/dL (8.8-10.5); CREATININE 7.44 mg/dL (0.60-1.30); POTASSIUM 4.7 mmol/L (3.5-5.1)
[2017-08-28 08:06] VITALS: BP 134/67
[2017-08-28] MEDS: HEPARIN SODIUM,PORCINE 5,000 UNITS/ML VIAL SQ SCH (08:07)
[2017-08-28] MEDS: METOPROLOL SUCCINATE 25 MG ER TABLET PO SCH (08:08)
[2017-08-28] MEDS: PANTOPRAZOLE SODIUM 40 MG/VIAL IVP SCH (08:08)
[2017-08-28] MEDS: MetroNIDAZOLE 500 MG TABLET PO SCH (08:09)
[2017-08-28] MEDS: PrednisoLONE ACETATE 1% 5 ML OPHTHALMIC SUSPENSION OD SCH (08:09)
[2017-08-28] MEDS: ASPIRIN 81 MG EC TABLET PO SCH (08:09)
[2017-08-28 09:01] LABS: RBC MORPHOLOGY COMMENT ABNORMAL RBC MORPH
[2017-08-28] MEDS ORDERED: METR500 PO (11:29)
[2017-08-28 11:36] VITALS: BP 149/64
[2017-08-29 23:17] LABS: GLUCOSE,POINT OF CARE 160 MG/DL (70-110)
[2017-08-29 23:17] LABS: GLUCOSE COMMENT 1 Received Meds; GLUCOSE,POINT OF CARE 273 MG/DL (70-110)
[2017-08-29 23:22] LABS: GLUCOSE COMMENT 1 Received Meds; GLUCOSE,POINT OF CARE 221 MG/DL (70-110)
[2017-08-30 05:37] LABS: GLUCOSE COMMENT 1 Received Meds; GLUCOSE,POINT OF CARE 238 MG/DL (70-110)
== END 2017-08-28 13:30 | disposition home or self-care (01) | DRG 871 ==
LOC: EMS 17:58 → 5S 19:44
PROVIDERS: ADMIT Internal Medicine Geriatric Medicine; ATTEND Internal Medicine
PROC: 5A1D70Z Performance of Urinary Filtration, Intermittent, Less than 6 Hours Per Day (ICD-10-PCS; principal; 2017-08-25)
PROC: 5A1D70Z Performance of Urinary Filtration, Intermittent, Less than 6 Hours Per Day (ICD-10-PCS; 2017-08-27)
DX: A41.9 Sepsis, unspecified organism (principal); N18.6 End stage renal disease; I13.2 Hypertensive heart and chronic kidney disease with heart failure and with stage 5 chronic kidney disease, or end stage renal disease; K85.90 Acute pancreatitis without necrosis or infection, unspecified; E11.21 Type 2 diabetes mellitus with diabetic nephropathy; A04.72 Enterocolitis due to Clostridium difficile, not specified as recurrent; E11.51 Type 2 diabetes mellitus with diabetic peripheral angiopathy without gangrene; E87.5 Hyperkalemia; K81.1 Chronic cholecystitis; E11.22 Type 2 diabetes mellitus with diabetic chronic kidney disease; I50.9 Heart failure, unspecified; Z90.49 Acquired absence of other specified parts of digestive tract; E78.5 Hyperlipidemia, unspecified; E86.1 Hypovolemia; Z79.4 Long term (current) use of insulin; Z79.82 Long term (current) use of aspirin; Z79.899 Other long term (current) drug therapy; Z87.891 Personal history of nicotine dependence; Z99.2 Dependence on renal dialysis
CPT/HCPCS: 82271; 82306; 82607; 82746; 82962; 83036; 83605; 83735; 84100; 84132; 84439; 87040; 87045; 87081; 87177; 87324; 87340; 87449; 89055; 90935; 93005; 96372; 96374; 99285; C9113; J0610; J1644; J2150; J2405; J2543; J3490; J7030; J7050; J7060

== ENCOUNTER 2017-10-06 14:01 | Emergency (ER) | payer MEDICARE, MEDICAID ==
[~2017-10-06] VITALS: Ht 162.6 cm; Wt 70.5 kg
[~2017-10-06 14:01] MED LIST changes: -AMLO-512 PO; -ATOR20TA86 PO; +CILO100T PO; +CINA30 PO; +HYDR100T28 PO; -LEVO250T2 PO; -MANNITOL 25%-12.5 GM/50 ML VIAL IVP ONE; +METO-408 PO; -METR250T PO; +METR500 PO; +NIFE90TA45 PO; -ONDA4 PO; -PANT40TA25 PO; -PARI1CAP IVP; +SIMV10TA6 PO
[2017-10-06 14:23] LABS: GLUCOSE,POINT OF CARE 177 MG/DL (70-110)
[2017-10-06 15:58] LABS: INFLUENZA TYPE A NEGATIVE FOR TYPE A (NEGATIVE); INFLUENZA TYPE B NEGATIVE FOR TYPE B (NEGATIVE)
[2017-10-06] MEDS ORDERED: CloNIDine HCL 0.2 MG TABLET PO ONE (16:45)
[2017-10-06 18:26] VITALS: BP 185/90
== END 2017-10-06 19:18 | disposition home or self-care (01) ==
LOC: EMS 14:02
DX: J06.9 Acute upper respiratory infection, unspecified (principal); R19.7 Diarrhea, unspecified; I12.0 Hypertensive chronic kidney disease with stage 5 chronic kidney disease or end stage renal disease; E11.22 Type 2 diabetes mellitus with diabetic chronic kidney disease; N18.6 End stage renal disease; D64.9 Anemia, unspecified; Z99.2 Dependence on renal dialysis; Z79.82 Long term (current) use of aspirin; Z79.899 Other long term (current) drug therapy
CPT/HCPCS: 71046; 82962; 87804; 99285

== ENCOUNTER 2017-10-11 19:14 | Inpatient (IN) | payer MEDICARE, MEDICAID ==
[~2017-10-11] VITALS: Ht 167.6 cm; Wt 74.5 kg
[2017-10-11 19:28] LABS: GLUCOSE,POINT OF CARE 176 MG/DL (70-110)
[2017-10-11 23:07] LABS: INFLUENZA TYPE A NEGATIVE FOR TYPE A (NEGATIVE); INFLUENZA TYPE B NEGATIVE FOR TYPE B (NEGATIVE)
[2017-10-12] MEDS ORDERED: PIPERACILLIN/TAZO 3.375 GM/D5W 50 ML IV ONE
[2017-10-12] MEDS ORDERED: 0.9% SODIUM CHLORIDE 10 ML SYRINGE IVP PRN
[2017-10-12 00:07] LABS: BASOPHILS # (AUTO) 0.01 K/uL (0.00-0.20); BASOPHILS % (AUTO) 0.1 % (0.0-2.0); EOSINOPHILS # (AUTO) 0.04 K/uL (0.00-0.70); EOSINOPHILS % (AUTO) 0.38 % (1.0-6.0); HEMATOCRIT 41.3 % (41-53); HEMOGLOBIN 13.5 g/dL (13.5-17.5); LYMPHOCYTES # (AUTO) 0.6 K/uL (1.0-4.8); LYMPHOCYTES % (AUTO) 6.3 % (22.0-44.0); MEAN CORPUSCULAR HEMOGLOBIN 33.8 pg (26.0-34.0); MEAN CORPUSCULAR HGB CONC 32.8 G/dL (31.0-37.0); MEAN CORPUSCULAR VOLUME 103 fL (80-100); MONOCYTES % (AUTO) 9.4 % (2.0-9.0); NEUTROPHILS # (AUTO) 8.5 K/uL (1.8-7.7); NEUTROPHILS % (AUTO) 83.8 % (40.0-70.0); PLATELET COUNT (AUTO) 433 K/uL (150-450); RED BLOOD CELL COUNT(AUTO) 4.01 MIL/uL (4.50-5.90); RED CELL DISTRIBUTION WIDTH 15.8 % (11.5-14.5)
[2017-10-12 00:23] LABS: ALANINE AMINOTRANSFERASE 34 U/L (12-78); ALKALINE PHOSPHATASE 91 U/L (46-116); ANION GAP 5 mmol/L (8-16); ASPARTATE AMINOTRANSFERASE 33 U/L (15-37); BILIRUBIN,TOTAL 0.4 mg/dL (0.1-1.0); CALCIUM, TOTAL 10.5 mg/dL (8.8-10.5); CHLORIDE 91 mmol/L (98-107); CREATININE 7.64 mg/dL (0.60-1.30); GLOMERULAR FILTR. RATE CALC 7 mL/min (>60); GLUCOSE,RANDOM 153 mg/dL (70-110); LIPASE 518 U/L (73-393); POTASSIUM 3.8 mmol/L (3.5-5.1); SODIUM SERUM 139 mmol/L (136-145); TOTAL PROTEIN, SERUM 10.6 g/dL (6.4-8.2); UREA NITROGEN, BLOOD 24 mg/dL (7-18)
[2017-10-12 00:24] LABS: CARBON DIOXIDE 43 mmol/L (22-29)
[2017-10-12 00:44] LABS: B-TYPE NATRIURETIC PEPTIDE 623 pg/mL (0-100)
[2017-10-12 00:46] LABS: LACTIC ACID 2.3 mmol/L (0.4-2.0)
[2017-10-12 01:47] VITALS: BP 168/67
[2017-10-12] MEDS ORDERED: DEXTROSE 50%-WATER 25 GM/50 ML SYRINGE IVP PRN (02:00)
[2017-10-12] MEDS ORDERED: ACETAMINOPHEN 325 MG TABLET PO PRN ×2 (04:45)
[2017-10-12] MEDS ORDERED: ONDANSETRON HCL 4 MG/2 ML VIAL IVP PRN ×2 (04:45)
[2017-10-12 05:20] VITALS: BP 143/81
[2017-10-12] MEDS ORDERED: INFLUENZA VIRUS VACCINE QVS 2017-18 (3YR+)/PF 60 MCG/0.5 ML SYRINGE IM ONE (06:15)
[2017-10-12] MEDS ORDERED: -PHARMACY VACCINE NOTE- MISC ONE (06:15)
[2017-10-12] MEDS: CILOSTAZOL 100 MG TABLET PO SCH ×2 (06:53→18:06)
[2017-10-12] MEDS: INSULIN ASPART 100 UNITS/ML SQ PRN ×3 (06:59→21:04)
[2017-10-12 07:35] VITALS: BP 147/78
[2017-10-12] MEDS ORDERED: CHOLECALCIFEROL (VIT D3) 1,000 UNITS TABLET PO SCH (09:00)
[2017-10-12] MEDS ORDERED: VITAMIN B COMP/VIT C/FOLIC ACID CAPSULE PO SCH (09:00)
[2017-10-12] MEDS: PrednisoLONE ACETATE 1% 5 ML OPHTHALMIC SUSPENSION OD SCH (09:00)
[2017-10-12] MEDS: CloNIDine HCL 0.1 MG TABLET PO SCH ×2 (09:16→20:47)
[2017-10-12] MEDS: CALCIUM ACETATE 667 MG CAPSULE PO SCH ×2 (09:16→12:15)
[2017-10-12] MEDS: ACARBOSE 50 MG TABLET PO SCH ×3 (09:16→18:06)
[2017-10-12] MEDS: ASPIRIN 81 MG EC TABLET PO SCH (09:16)
[2017-10-12] MEDS: VITAMIN B COMP/VIT C/FOLIC ACID CAPSULE PO SCH (09:16)
[2017-10-12] MEDS: NIFEdipine 90 MG ER TABLET PO SCH (09:17)
[2017-10-12] MEDS: CINACALCET HCL 30 MG TABLET PO SCH (09:17)
[2017-10-12] MEDS: DOCUSATE SODIUM 250 MG CAPSULE PO SCH ×2 (09:17→20:47)
[2017-10-12] MEDS: SIMVASTATIN 10 MG TABLET PO SCH (09:17)
[2017-10-12] MEDS: LinaGLIPtin 5 MG TABLET PO SCH (09:17)
[2017-10-12] MEDS: INSULIN GLARGINE,HUM.REC.ANLOG 100 UNITS/ML SQ SCH (09:19)
[2017-10-12] MEDS ORDERED: ALBUTEROL SULFATE 2.5 MG/0.5 ML NEB SOLUTION NEB PRN (11:15)
[2017-10-12] MEDS ORDERED: IPRATROPIUM BROMIDE 0.5 MG/2.5 ML NEB SOLUTION NEB PRN (11:15)
[2017-10-12 11:22] VITALS: BP 153/80
[2017-10-12 11:57] LABS: GLUCOMETER DEV NAME(LOC) PV 4E; GLUCOSE,POINT OF CARE 146 MG/DL (70-110)
[2017-10-12 11:57] LABS: GLUCOMETER DEV NAME(LOC) PV 4E; GLUCOSE,POINT OF CARE 120 MG/DL (70-110)
[2017-10-12] MEDS: METOPROLOL SUCCINATE 25 MG ER TABLET PO SCH (12:14)
[2017-10-12] MEDS: CARVEDILOL 6.25 MG TABLET PO SCH ×2 (12:15→20:48)
[2017-10-12] MEDS: HydrALAZINE HCL 50 MG TABLET PO SCH ×2 (12:15→20:45)
[2017-10-12] MEDS ORDERED: SODIUM CHLORIDE 0.9% 250 ML IV ONE (12:57)
[2017-10-12] MEDS: CefTRIAXone 1 GM/DEXTROSE 50 ML IV SCH (13:03)
[2017-10-12] MEDS: AZITHROMYCIN 500 MG/NS 250 ML IV SCH (13:31)
[2017-10-12 15:30] VITALS: BP 136/76
[2017-10-12 19:52] LABS: GLUCOMETER DEV NAME(LOC) PV 4E; GLUCOSE,POINT OF CARE 161 MG/DL (70-110)
[2017-10-12] MEDS: ALBUTEROL SULFATE 2.5 MG/0.5 ML NEB SOLUTION NEB SCH (20:32)
[2017-10-12] MEDS: IPRATROPIUM BROMIDE 0.5 MG/2.5 ML NEB SOLUTION NEB SCH (20:32)
[2017-10-12] MEDS: RAMIPRIL 10 MG CAPSULE PO SCH (20:46)
[2017-10-12] MEDS: BENZONATATE 100 MG CAPSULE PO SCH (20:46)
[2017-10-12] MEDS: TERAZOSIN HCL 5 MG CAPSULE PO SCH (20:47)
[2017-10-12 20:48] VITALS: BP 149/80
[2017-10-12] MEDS: MethylPREDNISolone SOD SUCC 40 MG/ML VIAL IVP SCH (20:48)
[2017-10-12 22:17] LABS: GLUCOMETER DEV NAME(LOC) PV 4E; GLUCOSE,POINT OF CARE 156 MG/DL (70-110)
[2017-10-13] VITALS (7 sets, daily range): BP systolic 102–145; BP diastolic 50–68
[2017-10-13] MEDS: BENZONATATE 100 MG CAPSULE PO SCH ×4 (00:29→23:19)
[2017-10-13] MEDS: MethylPREDNISolone SOD SUCC 40 MG/ML VIAL IVP SCH ×5 (00:30→23:19)
[2017-10-13] MEDS: ALBUTEROL SULFATE 2.5 MG/0.5 ML NEB SOLUTION NEB SCH ×4 (01:41→21:00)
[2017-10-13] MEDS: IPRATROPIUM BROMIDE 0.5 MG/2.5 ML NEB SOLUTION NEB SCH ×4 (01:42→21:00)
[2017-10-13] MEDS: CILOSTAZOL 100 MG TABLET PO SCH ×2 (06:39→17:16)
[2017-10-13] MEDS: INSULIN ASPART 100 UNITS/ML SQ PRN ×4 (06:43→21:24)
[2017-10-13 06:50] LABS: EOSINOPHILS % (AUTO) 0.1 % (1.0-6.0); HEMATOCRIT 32.4 % (41-53); HEMOGLOBIN 10.9 g/dL (13.5-17.5); LYMPHOCYTES # (AUTO) 0.5 K/uL (1.0-4.8); LYMPHOCYTES % (AUTO) 7.1 % (22.0-44.0); MEAN CORPUSCULAR HEMOGLOBIN 34.3 pg (26.0-34.0); MEAN CORPUSCULAR HGB CONC 33.7 G/dL (31.0-37.0); MEAN CORPUSCULAR VOLUME 102 fL (80-100); MONOCYTES % (AUTO) 0.6 % (2.0-9.0); NEUTROPHILS # (AUTO) 6.4 K/uL (1.8-7.7); PLATELET COUNT (AUTO) 347 K/uL (150-450); RED BLOOD CELL COUNT(AUTO) 3.18 MIL/uL (4.50-5.90); RED CELL DISTRIBUTION WIDTH 15.5 % (11.5-14.5)
[2017-10-13 06:51] LABS: NEUTROPHILS % (AUTO) 92.2 % (40.0-70.0)
[2017-10-13 07:03] LABS: GLUCOMETER DEV NAME(LOC) PV 4E; GLUCOSE,POINT OF CARE 251 MG/DL (70-110)
[2017-10-13 07:15] LABS: ALBUMIN 2.9 g/dL (3.4-5.0); BILIRUBIN,TOTAL 0.3 mg/dL (0.1-1.0); CALCIUM, TOTAL 8.5 mg/dL (8.8-10.5); MAGNESIUM 1.8 mg/dL (1.80-2.40); POTASSIUM 4.5 mmol/L (3.5-5.1); TOTAL PROTEIN, SERUM 8.3 g/dL (6.4-8.2)
[2017-10-13] MEDS: DOCUSATE SODIUM 250 MG CAPSULE PO SCH ×2 (08:44→21:00)
[2017-10-13] MEDS: VITAMIN B COMP/VIT C/FOLIC ACID CAPSULE PO SCH (08:44)
[2017-10-13] MEDS: CARVEDILOL 6.25 MG TABLET PO SCH ×2 (08:45→21:19)
[2017-10-13] MEDS: ASPIRIN 81 MG EC TABLET PO SCH (08:45)
[2017-10-13] MEDS: ACARBOSE 50 MG TABLET PO SCH ×3 (08:48→17:16)
[2017-10-13] MEDS: LinaGLIPtin 5 MG TABLET PO SCH (08:48)
[2017-10-13] MEDS: CINACALCET HCL 30 MG TABLET PO SCH (08:48)
[2017-10-13] MEDS: SIMVASTATIN 10 MG TABLET PO SCH (08:49)
[2017-10-13] MEDS: NIFEdipine 90 MG ER TABLET PO SCH (08:50)
[2017-10-13] MEDS: METOPROLOL SUCCINATE 25 MG ER TABLET PO SCH (08:51)
[2017-10-13] MEDS: CloNIDine HCL 0.1 MG TABLET PO SCH ×2 (09:00→21:19)
[2017-10-13] MEDS: HydrALAZINE HCL 50 MG TABLET PO SCH ×2 (09:00→21:18)
[2017-10-13] MEDS: PrednisoLONE ACETATE 1% 5 ML OPHTHALMIC SUSPENSION OD SCH (09:00)
[2017-10-13] MEDS: INSULIN GLARGINE,HUM.REC.ANLOG 100 UNITS/ML SQ SCH (09:05)
[2017-10-13] MEDS: CefTRIAXone 1 GM/DEXTROSE 50 ML IV SCH (11:47)
[2017-10-13 12:18] LABS: GLUCOMETER DEV NAME(LOC) PV 4E; GLUCOSE,POINT OF CARE 235 MG/DL (70-110)
[2017-10-13] MEDS: AZITHROMYCIN 500 MG/NS 250 ML IV SCH (13:53)
[2017-10-13] MEDS: SEVELAMER CARBONATE 800 MG TABLET PO SCH (17:16)
[2017-10-13 19:23] LABS: GLUCOMETER DEV NAME(LOC) PV 4E; GLUCOSE,POINT OF CARE 268 MG/DL (70-110)
[2017-10-13] MEDS: TERAZOSIN HCL 5 MG CAPSULE PO SCH (21:18)
[2017-10-13] MEDS: RAMIPRIL 10 MG CAPSULE PO SCH (21:18)
[2017-10-13 22:17] LABS: GLUCOMETER DEV NAME(LOC) PV 4E; GLUCOSE,POINT OF CARE 256 MG/DL (70-110)
[2017-10-14] MEDS: ALBUTEROL SULFATE 2.5 MG/0.5 ML NEB SOLUTION NEB SCH ×4 (02:30→21:50)
[2017-10-14] MEDS: IPRATROPIUM BROMIDE 0.5 MG/2.5 ML NEB SOLUTION NEB SCH ×4 (02:30→21:50)
[2017-10-14 05:26] VITALS: BP 130/62
[2017-10-14] MEDS: CILOSTAZOL 100 MG TABLET PO SCH ×2 (05:52→16:44)
[2017-10-14] MEDS: MethylPREDNISolone SOD SUCC 40 MG/ML VIAL IVP SCH (05:52)
[2017-10-14] MEDS: INSULIN ASPART 100 UNITS/ML SQ PRN ×3 (05:58→21:00)
[2017-10-14 06:29] LABS: GLUCOMETER DEV NAME(LOC) PV 4E; GLUCOSE,POINT OF CARE 317 MG/DL (70-110)
[2017-10-14 07:58] VITALS: BP 140/68
[2017-10-14] MEDS: HydrALAZINE HCL 50 MG TABLET PO SCH ×2 (08:05→19:50)
[2017-10-14] MEDS: ASPIRIN 81 MG EC TABLET PO SCH (08:06)
[2017-10-14] MEDS: CloNIDine HCL 0.1 MG TABLET PO SCH ×2 (08:06→19:51)
[2017-10-14] MEDS: VITAMIN B COMP/VIT C/FOLIC ACID CAPSULE PO SCH (08:06)
[2017-10-14] MEDS: PredniSONE 20 MG TABLET PO SCH (08:06)
[2017-10-14] MEDS: BENZONATATE 100 MG CAPSULE PO SCH ×3 (08:06→23:13)
[2017-10-14] MEDS: CARVEDILOL 6.25 MG TABLET PO SCH ×2 (08:06→19:51)
[2017-10-14] MEDS: CINACALCET HCL 30 MG TABLET PO SCH (08:07)
[2017-10-14] MEDS: PrednisoLONE ACETATE 1% 5 ML OPHTHALMIC SUSPENSION OD SCH (08:07)
[2017-10-14] MEDS: NIFEdipine 90 MG ER TABLET PO SCH (08:08)
[2017-10-14] MEDS: SEVELAMER CARBONATE 800 MG TABLET PO SCH ×3 (08:08→16:44)
[2017-10-14] MEDS: METOPROLOL SUCCINATE 25 MG ER TABLET PO SCH (08:08)
[2017-10-14] MEDS: ACARBOSE 50 MG TABLET PO SCH ×3 (08:08→16:45)
[2017-10-14] MEDS: LinaGLIPtin 5 MG TABLET PO SCH (08:09)
[2017-10-14] MEDS: SIMVASTATIN 10 MG TABLET PO SCH (08:09)
[2017-10-14] MEDS: INSULIN GLARGINE,HUM.REC.ANLOG 100 UNITS/ML SQ SCH (08:15)
[2017-10-14] MEDS: DOCUSATE SODIUM 250 MG CAPSULE PO SCH ×2 (08:17→19:51)
[2017-10-14] MEDS ORDERED: SODIUM CHLORIDE 0.9% 1,000 ML IV ONE (10:03)
[2017-10-14] MEDS: AZITHROMYCIN 500 MG/NS 250 ML IV SCH (14:28)
[2017-10-14] MEDS: CefTRIAXone SODIUM 1 GM/VIAL IVP SCH (14:29)
[2017-10-14 15:39] LABS: GLUCOMETER DEV NAME(LOC) PV 4E; GLUCOSE,POINT OF CARE 189 MG/DL (70-110)
[2017-10-14 15:40] VITALS: BP 115/62
[2017-10-14 17:53] LABS: GLUCOMETER DEV NAME(LOC) PV 4E; GLUCOSE,POINT OF CARE 258 MG/DL (70-110)
[2017-10-14 19:29] VITALS: BP 111/53
[2017-10-14] MEDS: TERAZOSIN HCL 5 MG CAPSULE PO SCH (19:50)
[2017-10-14] MEDS: RAMIPRIL 10 MG CAPSULE PO SCH (19:50)
[2017-10-14 20:17] LABS: GLUCOMETER DEV NAME(LOC) PV 4E; GLUCOSE,POINT OF CARE 269 MG/DL (70-110)
[2017-10-15 00:08] VITALS: BP 99/53
[2017-10-15] MEDS: ALBUTEROL SULFATE 2.5 MG/0.5 ML NEB SOLUTION NEB SCH ×2 (02:00→07:47)
[2017-10-15] MEDS: IPRATROPIUM BROMIDE 0.5 MG/2.5 ML NEB SOLUTION NEB SCH ×2 (02:00→07:47)
[2017-10-15] MEDS: CILOSTAZOL 100 MG TABLET PO SCH (05:28)
[2017-10-15] MEDS: INSULIN ASPART 100 UNITS/ML SQ PRN ×2 (05:31→11:59)
[2017-10-15 05:58] VITALS: BP 116/59
[2017-10-15 06:13] LABS: GLUCOMETER DEV NAME(LOC) PV 4E; GLUCOSE,POINT OF CARE 154 MG/DL (70-110)
[2017-10-15 06:14] LABS: ALBUMIN 2.8 g/dL (3.4-5.0); BILIRUBIN,TOTAL 0.2 mg/dL (0.1-1.0); CALCIUM, TOTAL 7.8 mg/dL (8.8-10.5); CREATININE 9.07 mg/dL (0.60-1.30); MAGNESIUM 1.6 mg/dL (1.80-2.40); POTASSIUM 4.5 mmol/L (3.5-5.1)
[2017-10-15 06:40] LABS: EOSINOPHILS % (AUTO) 0.01 % (1.0-6.0); HEMATOCRIT 30.4 % (41-53); HEMOGLOBIN 10.1 g/dL (13.5-17.5); LYMPHOCYTES % (AUTO) 9.2 % (22.0-44.0); MEAN CORPUSCULAR HEMOGLOBIN 34.7 pg (26.0-34.0); MEAN CORPUSCULAR HGB CONC 33.4 G/dL (31.0-37.0); MEAN CORPUSCULAR VOLUME 104 fL (80-100); MONOCYTES # (AUTO) 0.6 K/uL (0.1-1.0); MONOCYTES % (AUTO) 5.7 % (2.0-9.0); NEUTROPHILS # (AUTO) 9.3 K/uL (1.8-7.7); PLATELET COUNT (AUTO) 321 K/uL (150-450); RED BLOOD CELL COUNT(AUTO) 2.92 MIL/uL (4.50-5.90); RED CELL DISTRIBUTION WIDTH 15.8 % (11.5-14.5)
[2017-10-15 07:55] VITALS: BP 151/73
[2017-10-15] MEDS ORDERED: MAGNESIUM OXIDE 400 MG TABLET PO ONE ×2 (08:15→08:30)
[2017-10-15] MEDS: NIFEdipine 90 MG ER TABLET PO SCH (08:18)
[2017-10-15] MEDS: METOPROLOL SUCCINATE 25 MG ER TABLET PO SCH (08:18)
[2017-10-15] MEDS: CARVEDILOL 6.25 MG TABLET PO SCH (08:19)
[2017-10-15] MEDS: HydrALAZINE HCL 50 MG TABLET PO SCH (08:20)
[2017-10-15] MEDS: BENZONATATE 100 MG CAPSULE PO SCH (08:33)
[2017-10-15] MEDS: VITAMIN B COMP/VIT C/FOLIC ACID CAPSULE PO SCH (08:33)
[2017-10-15] MEDS: PredniSONE 20 MG TABLET PO SCH (08:33)
[2017-10-15] MEDS: CloNIDine HCL 0.1 MG TABLET PO SCH (08:33)
[2017-10-15] MEDS: SEVELAMER CARBONATE 800 MG TABLET PO SCH ×2 (08:33→12:04)
[2017-10-15] MEDS: ASPIRIN 81 MG EC TABLET PO SCH (08:33)
[2017-10-15] MEDS: DOCUSATE SODIUM 250 MG CAPSULE PO SCH (08:34)
[2017-10-15] MEDS: ACARBOSE 50 MG TABLET PO SCH ×2 (08:34→12:04)
[2017-10-15] MEDS: CINACALCET HCL 30 MG TABLET PO SCH (08:34)
[2017-10-15] MEDS: SIMVASTATIN 10 MG TABLET PO SCH (08:35)
[2017-10-15] MEDS: PrednisoLONE ACETATE 1% 5 ML OPHTHALMIC SUSPENSION OD SCH (08:35)
[2017-10-15] MEDS: INSULIN GLARGINE,HUM.REC.ANLOG 100 UNITS/ML SQ SCH (08:47)
[2017-10-15] MEDS: LinaGLIPtin 5 MG TABLET PO SCH (09:00)
[2017-10-15] MEDS ORDERED: CARV6 PO (10:01)
[2017-10-15] MEDS ORDERED: HYDR-2924 PO (10:02)
[2017-10-15] MEDS ORDERED: SEVEC800 PO (10:04)
[2017-10-15] MEDS ORDERED: IPRA3AMP4 NEB (10:06)
[2017-10-15] MEDS ORDERED: PRED20 PO (10:08)
[2017-10-15 11:18] VITALS: BP 125/58
[2017-10-15] MEDS: CefTRIAXone SODIUM 1 GM/VIAL IVP SCH (12:04)
[2017-10-15 12:34] LABS: GLUCOMETER DEV NAME(LOC) PV 4E; GLUCOSE,POINT OF CARE 258 MG/DL (70-110)
== END 2017-10-15 14:40 | disposition home or self-care (01) | DRG 193 ==
LOC: EMS 19:15 → 4E 23:30
PROVIDERS: ADMIT Internal Medicine; ATTEND Internal Medicine
PROC: 5A1D70Z Performance of Urinary Filtration, Intermittent, Less than 6 Hours Per Day (ICD-10-PCS; principal; 2017-10-14)
DX: J18.0 Bronchopneumonia, unspecified organism (principal); N18.6 End stage renal disease; I13.2 Hypertensive heart and chronic kidney disease with heart failure and with stage 5 chronic kidney disease, or end stage renal disease; E11.21 Type 2 diabetes mellitus with diabetic nephropathy; E11.51 Type 2 diabetes mellitus with diabetic peripheral angiopathy without gangrene; I50.30 Unspecified diastolic (congestive) heart failure; J44.1 Chronic obstructive pulmonary disease with (acute) exacerbation; J44.0 Chronic obstructive pulmonary disease with (acute) lower respiratory infection; E11.22 Type 2 diabetes mellitus with diabetic chronic kidney disease; D63.1 Anemia in chronic kidney disease; E11.65 Type 2 diabetes mellitus with hyperglycemia; J20.9 Acute bronchitis, unspecified; E78.2 Mixed hyperlipidemia; N40.0 Benign prostatic hyperplasia without lower urinary tract symptoms; Z87.891 Personal history of nicotine dependence; Z99.2 Dependence on renal dialysis; Z79.4 Long term (current) use of insulin; Z79.82 Long term (current) use of aspirin; Z90.49 Acquired absence of other specified parts of digestive tract; Z79.899 Other long term (current) drug therapy
CPT/HCPCS: 82962; 83605; 83735; 84100; 87040; 87081; 87340; 87804; 93005; 93306; 93880; 94640; 96365; 99291; J0456; J0696; J1815; J2543; J2920; J7030; J7050

== ENCOUNTER → 2018-03-28 | Outpatient (CLI) | payer MEDICARE, MEDICAID ==
[~2018-03-28] MED LIST changes: +CARV6 PO; +IPRA3AMP4 NEB; -METR500 PO; +PRED20 PO; +SEVEC800 PO
== END | disposition home or self-care (01) ==
LOC: RADMN 09:22
PROVIDERS: ATTEND Radiology Vascular & Interventional Radiology
DX: M48.061 Spinal stenosis, lumbar region without neurogenic claudication (principal)
CPT/HCPCS: 72148

== ENCOUNTER 2018-05-25 18:58 | Emergency (ER) | payer MEDICARE, MEDICAID ==
[~2018-05-25] VITALS: Ht 175.3 cm; Wt 81.7 kg
[~2018-05-25 18:58] MED LIST changes: +ACET-784 PO; +BACTDSB PO; -CILO100T PO; -CINA30 PO; -CLON-570 PO; +IPRA3AMP24 NEB; -IPRA3AMP4 NEB; -LINA5TAB PO; -PRED20 PO
[2018-05-25 20:27] LABS: EOSINOPHILS % (AUTO) 0.5 % (1.0-6.0); HEMATOCRIT 27.5 % (41-53); HEMOGLOBIN 9.3 g/dL (13.5-17.5); LYMPHOCYTES # (AUTO) 0.9 K/uL (1.0-4.8); LYMPHOCYTES % (AUTO) 7.7 % (22.0-44.0); MEAN CORPUSCULAR HEMOGLOBIN 32.5 pg (26.0-34.0); MEAN CORPUSCULAR HGB CONC 33.8 G/dL (31.0-37.0); MEAN CORPUSCULAR VOLUME 96 fL (80-100); MONOCYTES # (AUTO) 0.7 K/uL (0.1-1.0); MONOCYTES % (AUTO) 5.7 % (2.0-9.0); NEUTROPHILS # (AUTO) 10.1 K/uL (1.8-7.7); NEUTROPHILS % (AUTO) 85.1 % (40.0-70.0); PLATELET COUNT (AUTO) 308 K/uL (150-450); RED BLOOD CELL COUNT(AUTO) 2.85 MIL/uL (4.50-5.90); RED CELL DISTRIBUTION WIDTH 16.5 % (11.5-14.5)
[2018-05-25 20:52] LABS: B-TYPE NATRIURETIC PEPTIDE 574 pg/mL (0-100)
[2018-05-25 21:00] LABS: PROTHROMBIN TIME 10.8 SEC (9.4-11.6)
[2018-05-25 21:30] LABS: ALANINE AMINOTRANSFERASE 75 U/L (12-78); ALBUMIN 3.3 g/dL (3.4-5.0); ALKALINE PHOSPHATASE 66 U/L (46-116); ANION GAP 14 mmol/L (8-16); ASPARTATE AMINOTRANSFERASE 40 U/L (15-37); BILIRUBIN,TOTAL 0.3 mg/dL (0.1-1.0); CALCIUM, TOTAL 9.5 mg/dL (8.8-10.5); CARBON DIOXIDE 30 mmol/L (22-29); CHLORIDE 93 mmol/L (98-107); CREATINE KINASE MB 2.8 ng/mL (0-5); CREATINE KINASE, TOTAL 359 U/L (39-308); CREATININE 10.83 mg/dL (0.60-1.30); GLOMERULAR FILTR. RATE CALC 5 mL/min (>60); GLUCOSE,RANDOM 156 mg/dL (70-110); SODIUM SERUM 137 mmol/L (136-145); TOTAL PROTEIN, SERUM 8.4 g/dL (6.4-8.2); UREA NITROGEN, BLOOD 67 mg/dL (7-18)
[2018-05-25 21:31] LABS: POTASSIUM 6.9 mmol/L (3.5-5.1)
[2018-05-25] MEDS ORDERED: INSULIN REGULAR, HUMAN 100 UNITS/ML IVP ONE (22:00)
[2018-05-25] MEDS ORDERED: CALCIUM GLUCONATE 0.465 MEQ/ML 10 ML VIAL IVP ONE (22:00)
[2018-05-25] MEDS ORDERED: DEXTROSE 50%-WATER 25 GM/50 ML SYRINGE IVP ONE (22:00)
[2018-05-25] MEDS ORDERED: ALBUTEROL SULFATE 2.5 MG/0.5 ML NEB SOLUTION NEB ONE (22:00)
[2018-05-25 22:03] LABS: GLUCOSE,POINT OF CARE 116 MG/DL (70-110)
[2018-05-25] MEDS ORDERED: 0.9% SODIUM CHLORIDE 5 ML NEB SOLUTION NEB ONE (22:39)
[2018-05-25] MEDS ORDERED: HEPARIN SODIUM 25000 UNITS/D5W 250 ML IV PRN (22:43)
[2018-05-25] MEDS ORDERED: MORPHINE SULFATE 4 MG/ML SYRINGE IVP ONE (22:45)
[2018-05-25] MEDS ORDERED: HEPARIN SODIUM,PORCINE 5,000 UNITS/ML VIAL IVP PRN ×4 (22:45→23:13)
[2018-05-25] MEDS ORDERED: HEPARIN SODIUM,PORCINE 5,000 UNITS/ML VIAL IVP ONE (22:45)
[2018-05-25 23:16] LABS: BASOPHILS % (AUTO) 0.3 % (0.0-2.0); EOSINOPHILS % (AUTO) 1.1 % (1.0-6.0); HEMATOCRIT 26.4 % (41-53); HEMOGLOBIN 9.1 g/dL (13.5-17.5); LYMPHOCYTES % (AUTO) 11.1 % (22.0-44.0); MEAN CORPUSCULAR HEMOGLOBIN 33.1 pg (26.0-34.0); MEAN CORPUSCULAR HGB CONC 34.3 G/dL (31.0-37.0); MEAN CORPUSCULAR VOLUME 97 fL (80-100); MONOCYTES # (AUTO) 0.7 K/uL (0.1-1.0); MONOCYTES % (AUTO) 7.6 % (2.0-9.0); NEUTROPHILS # (AUTO) 7.4 K/uL (1.8-7.7); NEUTROPHILS % (AUTO) 79.9 % (40.0-70.0); PLATELET COUNT (AUTO) 287 K/uL (150-450); RED BLOOD CELL COUNT(AUTO) 2.74 MIL/uL (4.50-5.90); RED CELL DISTRIBUTION WIDTH 16.6 % (11.5-14.5)
[2018-05-25 23:25] LABS: CALCIUM, TOTAL 9.7 mg/dL (8.8-10.5); CREATININE 11.03 mg/dL (0.60-1.30); POTASSIUM 5.5 mmol/L (3.5-5.1)
[2018-05-25 23:29] LABS: PROTHROMBIN TIME 10.7 SEC (9.4-11.6)
[2018-05-25 23:32] LABS: ALBUMIN 3.3 g/dL (3.4-5.0); BILIRUBIN,TOTAL 0.3 mg/dL (0.1-1.0); TOTAL PROTEIN, SERUM 8.2 g/dL (6.4-8.2)
[2018-05-26 00:28] LABS: CALCIUM, TOTAL 9.2 mg/dL (8.8-10.5); CREATININE 8.41 mg/dL (0.60-1.30)
[2018-05-26 00:34] LABS: ALBUMIN 3.2 g/dL (3.4-5.0); BILIRUBIN,TOTAL 0.3 mg/dL (0.1-1.0)
[2018-05-26] MEDS ORDERED: MORPHINE SULFATE 4 MG/ML SYRINGE IVP ONE ×2 (02:15)
[2018-05-26 03:01] VITALS: BP 143/60
== END 2018-05-26 03:40 | disposition short-term general hospital (02) ==
LOC: EMS 19:00
DX: I70.202 Unspecified atherosclerosis of native arteries of extremities, left leg (principal); I73.9 Peripheral vascular disease, unspecified; E87.5 Hyperkalemia; M25.562 Pain in left knee; I25.10 Atherosclerotic heart disease of native coronary artery without angina pectoris; I12.0 Hypertensive chronic kidney disease with stage 5 chronic kidney disease or end stage renal disease; E11.22 Type 2 diabetes mellitus with diabetic chronic kidney disease; N18.6 End stage renal disease; F17.210 Nicotine dependence, cigarettes, uncomplicated; Z99.2 Dependence on renal dialysis; Z79.4 Long term (current) use of insulin; Z79.82 Long term (current) use of aspirin; W18.30XA Fall on same level, unspecified, initial encounter; Y93.89 Activity, other specified; Y92.89 Other specified places as the place of occurrence of the external cause; Y99.8 Other external cause status
CPT/HCPCS: 36415; 71045; 72170; 73562; 80053; 82550; 82553; 82962; 83880; 84484; 85025; 85610; 85730; 93005; 93926; 94640; 96365; 96366; 96375; 96376; 99291; J0610; J1644 ×2; J1815; J2270 ×2

== ENCOUNTER 2018-09-08 10:18 | Emergency (ER) | payer MEDICARE, MEDICAID ==
[~2018-09-08] VITALS: Ht 165.1 cm; Wt 69.1 kg
[~2018-09-08 10:18] MED LIST changes: -ACAR50TA11 PO; -ASPI-556 PO; +ATOR10TA84 PO; -B CO1CAP4 PO; -BACTDSB PO; -CHOL2000 PO; +CLOP75 PO; +DIPH25 PO; -DOCU250C91 PO; +FAMO20 PO; -FOLI1CAP2 PO; +HEPA500018 SQ; +HYDR-4455 PO; -INSLAN SQ; +INSU100V SQ; -IPRA3AMP24 NEB; -METO-408 PO; -PREDAOS OD; +PREG50 PO; -RAMI10 PO; -SIMV10TA6 PO; -TERA5 PO
[2018-09-08] MEDS ORDERED: PANT40TA25 PO (10:33)
[2018-09-08] MEDS ORDERED: PRED20 PO (10:33)
[2018-09-08] MEDS ORDERED: BACTDSB PO (10:33)
[2018-09-08] MEDS ORDERED: FOLI1 PO (10:33)
[2018-09-08 10:35] LABS: GLUCOSE,POINT OF CARE 107 MG/DL (70-110)
[2018-09-08 12:31] LABS: BASOPHILS % (AUTO) 0.6 % (0.0-2.0); EOSINOPHILS % (AUTO) 1.6 % (1.0-6.0); HEMATOCRIT 33.8 % (41-53); HEMOGLOBIN 11.3 g/dL (13.5-17.5); LYMPHOCYTES # (AUTO) 0.6 K/uL (1.0-4.8); LYMPHOCYTES % (AUTO) 5.6 % (22.0-44.0); MEAN CORPUSCULAR HEMOGLOBIN 31.5 pg (26.0-34.0); MEAN CORPUSCULAR HGB CONC 33.4 G/dL (31.0-37.0); MEAN CORPUSCULAR VOLUME 94 fL (80-100); MONOCYTES # (AUTO) 0.7 K/uL (0.1-1.0); MONOCYTES % (AUTO) 6.1 % (2.0-9.0); NEUTROPHILS # (AUTO) 9.8 K/uL (1.8-7.7); PLATELET COUNT (AUTO) 335 K/uL (150-450); RED BLOOD CELL COUNT(AUTO) 3.59 MIL/uL (4.50-5.90); RED CELL DISTRIBUTION WIDTH 16.9 % (11.5-14.5)
[2018-09-08 12:42] LABS: CREATININE 6.94 mg/dL (0.60-1.30); POTASSIUM 3.6 mmol/L (3.5-5.1)
[2018-09-08 12:43] LABS: MAGNESIUM 1.6 mg/dL (1.80-2.40); NEUTROPHILS % (AUTO) 86.1 % (40.0-70.0)
[2018-09-08 15:43] VITALS: BP 135/62
== END 2018-09-08 16:10 | disposition home or self-care (01) ==
LOC: EMS 10:19
DX: I12.0 Hypertensive chronic kidney disease with stage 5 chronic kidney disease or end stage renal disease (principal); E11.22 Type 2 diabetes mellitus with diabetic chronic kidney disease; N18.6 End stage renal disease; R19.7 Diarrhea, unspecified; I25.10 Atherosclerotic heart disease of native coronary artery without angina pectoris; F17.210 Nicotine dependence, cigarettes, uncomplicated; Z99.2 Dependence on renal dialysis; Z79.4 Long term (current) use of insulin
CPT/HCPCS: 83735; 93005

== ENCOUNTER 2018-11-07 04:08 | Inpatient (IN) | payer MEDICARE, MEDICAID ==
[~2018-11-07] VITALS: Ht 172.7 cm; Wt 77.2 kg
[~2018-11-07 04:08] MED LIST changes: +BACTDSB PO; -CLOP75 PO; +CLOP75TA17 PO; +FOLI1 PO; +PANT40TA25 PO; +PRED20 PO
[2018-11-07 04:26] LABS: BASOPHILS % (AUTO) 0.5 % (0.0-2.0); EOSINOPHILS % (AUTO) 1.7 % (1.0-6.0); HEMATOCRIT 29.6 % (41-53); HEMOGLOBIN 9.6 g/dL (13.5-17.5); LYMPHOCYTES # (AUTO) 1.2 K/uL (1.0-4.8); LYMPHOCYTES % (AUTO) 6.3 % (22.0-44.0); MEAN CORPUSCULAR HEMOGLOBIN 30.8 pg (26.0-34.0); MEAN CORPUSCULAR HGB CONC 32.5 G/dL (31.0-37.0); MEAN CORPUSCULAR VOLUME 95 fL (80-100); MONOCYTES % (AUTO) 4.9 % (2.0-9.0); NEUTROPHILS # (AUTO) 17.1 K/uL (1.8-7.7); NEUTROPHILS % (AUTO) 86.6 % (40.0-70.0); PLATELET COUNT (AUTO) 384 K/uL (150-450); RED BLOOD CELL COUNT(AUTO) 3.12 MIL/uL (4.50-5.90); RED CELL DISTRIBUTION WIDTH 17.1 % (11.5-14.5)
[2018-11-07 04:33] LABS: CALCIUM, TOTAL 8.7 mg/dL (8.8-10.5); CREATININE 10.47 mg/dL (0.60-1.30); POTASSIUM 4.3 mmol/L (3.5-5.1)
[2018-11-07 04:42] LABS: PROTHROMBIN TIME 10.3 SEC (9.4-11.6)
[2018-11-07 04:58] LABS: ALBUMIN 3.5 g/dL (3.4-5.0); BILIRUBIN,TOTAL 0.5 mg/dL (0.1-1.0); TOTAL PROTEIN, SERUM 8.8 g/dL (6.4-8.2)
[2018-11-07] MEDS ORDERED: VANCOMYCIN HCL 1 GM/D5% WATER 200 ML IV ONE (05:15)
[2018-11-07] MEDS ORDERED: PIPERACILLIN SODIUM/TAZOBACTAM 4.5 GM in DEXTROSE 5%-WATER 100 ML IV ONE (05:15)
[2018-11-07] MEDS ORDERED: SODIUM CHLORIDE 0.9% 1,000 ML IV ONE ×2 (05:15→06:00)
[2018-11-07 05:29] LABS: LACTIC ACID 2.1 mmol/L (0.4-2.0)
[2018-11-07] MEDS ORDERED: 0.9% SODIUM CHLORIDE 10 ML SYRINGE IVP PRN ×3 (06:00→17:00)
[2018-11-07] MEDS ORDERED: ACETAMINOPHEN 325 MG TABLET PO PRN (06:00)
[2018-11-07] MEDS ORDERED: ONDANSETRON HCL 4 MG/2 ML VIAL IVP PRN ×2 (06:00→17:00)
[2018-11-07] MEDS ORDERED: AZITHROMYCIN 250 MG in SODIUM CHLORIDE 0.9% 150 ML IV ONE (07:00)
[2018-11-07 08:54] LABS: GLUCOSE,POINT OF CARE 146 MG/DL (70-110)
[2018-11-07] MEDS ORDERED: EPOETIN ALFA 10,000 UNITS/ML 2 ML VIAL SQ ONE (10:00)
[2018-11-07] MEDS: RAMIPRIL 10 MG CAPSULE PO SCH ×2 (13:00→15:37)
[2018-11-07] MEDS: CALCIUM ACETATE 667 MG CAPSULE PO SCH ×3 (15:35→20:31)
[2018-11-07] MEDS ORDERED: ZOLPIDEM TARTRATE 5 MG TABLET PO PRN (17:00)
[2018-11-07] MEDS ORDERED: ALBUTEROL SULFATE 2.5 MG/0.5 ML NEB SOLUTION NEB PRN (17:00)
[2018-11-07] MEDS ORDERED: HEPARIN SODIUM,PORCINE 5,000 UNITS/ML VIAL SQ SCH ×2 (17:00)
[2018-11-07] MEDS ORDERED: NIFEdipine 90 MG ER TABLET PO SCH (17:00)
[2018-11-07] MEDS ORDERED: MORPHINE SULFATE 4 MG/ML SYRINGE IVP PRN (17:00)
[2018-11-07] MEDS ORDERED: DiphenhydrAMINE HCL 25 MG CAPSULE PO PRN (17:00)
[2018-11-07] MEDS ORDERED: IPRATROPIUM BROMIDE 0.5 MG/2.5 ML NEB SOLUTION NEB PRN (17:00)
[2018-11-07] MEDS ORDERED: DEXTROSE 50%-WATER 25 GM/50 ML SYRINGE IVP PRN (17:30)
[2018-11-07] MEDS ORDERED: PIPERACILLIN SODIUM/TAZOBACTAM 2.25 GM in DEXTROSE 5%-WATER 50 ML IV SCH (17:45)
[2018-11-07 17:46] VITALS: BP 160/75
[2018-11-07] MEDS ORDERED: SODIUM CHLORIDE 0.9% 100 ML ONE ×2 (18:10→21:02)
[2018-11-07] MEDS: PANTOPRAZOLE SODIUM 40 MG DR TABLET PO SCH (18:13)
[2018-11-07] MEDS: SEVELAMER CARBONATE 800 MG TABLET PO SCH (18:14)
[2018-11-07 19:58] VITALS: BP 138/62
[2018-11-07] MEDS: PREGABALIN 50 MG CAPSULE PO SCH (20:31)
[2018-11-07] MEDS: ATORVASTATIN CALCIUM 20 MG TABLET PO SCH (20:31)
[2018-11-07] MEDS: HEPARIN SODIUM,PORCINE 5,000 UNITS/ML VIAL SQ SCH (20:32)
[2018-11-07] MEDS: DOCUSATE SODIUM 250 MG CAPSULE PO SCH (20:32)
[2018-11-07] MEDS: ACETAMINOPHEN 500 MG TABLET PO PRN (20:32)
[2018-11-07] MEDS ORDERED: HydrALAZINE HCL 50 MG TABLET PO SCH (21:00)
[2018-11-07] MEDS ORDERED: CARVEDILOL 6.25 MG TABLET PO SCH (21:00)
[2018-11-07] MEDS ORDERED: IOVERSOL 320 MG/ML 100 ML VIAL ONE (21:02)
[2018-11-07] MEDS: INSULIN LISPRO 100 UNITS/ML SQ PRN (21:52)
[2018-11-07] MEDS ORDERED: PNEUMOCOCCAL VACCINE POLYVALENT 0.5 ML VIAL [PPSV23] IM ONE (22:30)
[2018-11-08] VITALS (7 sets, daily range): BP systolic 107–141; BP diastolic 34–65
[2018-11-08] MEDS: PIPERACILLIN SODIUM/TAZOBACTAM 2.25 GM in DEXTROSE 5%-WATER 50 ML IV SCH ×4 (00:56→22:08)
[2018-11-08 06:04] LABS: GLUCOMETER DEV NAME(LOC) 5N.1; GLUCOSE,POINT OF CARE 186 MG/DL (70-110)
[2018-11-08 06:05] LABS: GLUCOMETER DEV NAME(LOC) 5N.1; GLUCOSE,POINT OF CARE 176 MG/DL (70-110)
[2018-11-08] MEDS: PANTOPRAZOLE SODIUM 40 MG DR TABLET PO SCH (06:32)
[2018-11-08] MEDS: INSULIN LISPRO 100 UNITS/ML SQ PRN ×4 (06:34→20:00)
[2018-11-08 07:49] LABS: GLUCOMETER DEV NAME(LOC) 5N.2; GLUCOSE,POINT OF CARE 153 MG/DL (70-110)
[2018-11-08] MEDS: CALCIUM ACETATE 667 MG CAPSULE PO SCH ×6 (09:00→19:56)
[2018-11-08] MEDS: HEPARIN SODIUM,PORCINE 5,000 UNITS/ML VIAL SQ SCH ×2 (09:32→19:56)
[2018-11-08] MEDS: DOCUSATE SODIUM 250 MG CAPSULE PO SCH ×3 (09:33→19:57)
[2018-11-08] MEDS: FAMOTIDINE 20 MG TABLET PO SCH (09:33)
[2018-11-08] MEDS: PREGABALIN 50 MG CAPSULE PO SCH ×2 (09:33→19:57)
[2018-11-08] MEDS: SEVELAMER CARBONATE 800 MG TABLET PO SCH ×3 (09:33→18:06)
[2018-11-08] MEDS: FOLIC ACID 1 MG TABLET PO SCH (09:34)
[2018-11-08] MEDS: CLOPIDOGREL BISULFATE 75 MG TABLET PO SCH (09:34)
[2018-11-08] MEDS: VITAMIN B COMP/VIT C/FOLIC ACID CAPSULE PO SCH (11:53)
[2018-11-08] MEDS: RAMIPRIL 5 MG CAPSULE PO SCH (11:54)
[2018-11-08 17:23] LABS: BASOPHILS % (AUTO) 0.6 % (0.0-2.0); EOSINOPHILS % (AUTO) 2.9 % (1.0-6.0); HEMATOCRIT 25.6 % (41-53); HEMOGLOBIN 8.4 g/dL (13.5-17.5); LYMPHOCYTES # (AUTO) 0.8 K/uL (1.0-4.8); LYMPHOCYTES % (AUTO) 7.3 % (22.0-44.0); MEAN CORPUSCULAR HEMOGLOBIN 31.2 pg (26.0-34.0); MEAN CORPUSCULAR VOLUME 94 fL (80-100); MONOCYTES # (AUTO) 0.7 K/uL (0.1-1.0); MONOCYTES % (AUTO) 6.2 % (2.0-9.0); NEUTROPHILS # (AUTO) 9.4 K/uL (1.8-7.7); PLATELET COUNT (AUTO) 301 K/uL (150-450); RED BLOOD CELL COUNT(AUTO) 2.71 MIL/uL (4.50-5.90); RED CELL DISTRIBUTION WIDTH 17.2 % (11.5-14.5)
[2018-11-08 17:34] LABS: HEMOGLOBIN A1C 7.1 % (4.5-6.2)
[2018-11-08 17:39] LABS: PROTHROMBIN TIME 10.8 SEC (9.4-11.6)
[2018-11-08 17:46] LABS: CHOL/HDL RATIO 3.1 (4.2-7.3); THYROID STIMULATING HORMONE 0.7 uIU/mL (0.36-3.74)
[2018-11-08 18:54] LABS: GLUCOMETER DEV NAME(LOC) 5N.2; GLUCOSE,POINT OF CARE 116 MG/DL (70-110)
[2018-11-08 18:54] LABS: GLUCOMETER DEV NAME(LOC) 5N.2; GLUCOSE,POINT OF CARE 151 MG/DL (70-110)
[2018-11-08] MEDS: ATORVASTATIN CALCIUM 20 MG TABLET PO SCH (19:57)
[2018-11-08] MEDS: HydrALAZINE HCL 25 MG TABLET PO SCH (19:57)
[2018-11-08] MEDS: CARVEDILOL 3.125 MG TABLET PO SCH (19:57)
[2018-11-08 23:04] LABS: GLUCOMETER DEV NAME(LOC) 5N.2; GLUCOSE,POINT OF CARE 213 MG/DL (70-110)
[2018-11-09 00:02] VITALS: BP 129/96
[2018-11-09 04:06] VITALS: BP 133/72
[2018-11-09] MEDS: PANTOPRAZOLE SODIUM 40 MG DR TABLET PO SCH (06:02)
[2018-11-09] MEDS: PIPERACILLIN SODIUM/TAZOBACTAM 2.25 GM in DEXTROSE 5%-WATER 50 ML IV SCH ×3 (06:02→21:10)
[2018-11-09 06:59] LABS: BASOPHILS % (AUTO) 0.5 % (0.0-2.0); EOSINOPHILS % (AUTO) 3.4 % (1.0-6.0); HEMOGLOBIN 8.7 g/dL (13.5-17.5); LYMPHOCYTES # (AUTO) 0.9 K/uL (1.0-4.8); LYMPHOCYTES % (AUTO) 6.9 % (22.0-44.0); MEAN CORPUSCULAR HEMOGLOBIN 31.8 pg (26.0-34.0); MEAN CORPUSCULAR HGB CONC 33.5 G/dL (31.0-37.0); MEAN CORPUSCULAR VOLUME 95 fL (80-100); MONOCYTES # (AUTO) 0.6 K/uL (0.1-1.0); MONOCYTES % (AUTO) 4.8 % (2.0-9.0); NEUTROPHILS # (AUTO) 10.9 K/uL (1.8-7.7); NEUTROPHILS % (AUTO) 84.4 % (40.0-70.0); PLATELET COUNT (AUTO) 310 K/uL (150-450); RED BLOOD CELL COUNT(AUTO) 2.74 MIL/uL (4.50-5.90); RED CELL DISTRIBUTION WIDTH 17.3 % (11.5-14.5)
[2018-11-09 07:05] LABS: HEMOGLOBIN A1C 6.8 % (4.5-6.2)
[2018-11-09 07:19] VITALS: BP 156/77
[2018-11-09 07:31] LABS: BILIRUBIN,TOTAL 0.5 mg/dL (0.1-1.0); CALCIUM, TOTAL 9.2 mg/dL (8.8-10.5); CREATININE 9.79 mg/dL (0.60-1.30); POTASSIUM 5.2 mmol/L (3.5-5.1); TOTAL PROTEIN, SERUM 8.3 g/dL (6.4-8.2)
[2018-11-09 07:39] LABS: GLUCOMETER DEV NAME(LOC) 5N.2; GLUCOSE,POINT OF CARE 130 MG/DL (70-110)
[2018-11-09] MEDS: SEVELAMER CARBONATE 800 MG TABLET PO SCH ×3 (08:10→17:49)
[2018-11-09] MEDS: PREGABALIN 50 MG CAPSULE PO SCH ×2 (08:10→21:06)
[2018-11-09] MEDS: CALCIUM ACETATE 667 MG CAPSULE PO SCH ×6 (08:11→21:06)
[2018-11-09] MEDS: HEPARIN SODIUM,PORCINE 5,000 UNITS/ML VIAL SQ SCH ×2 (08:11→21:00)
[2018-11-09] MEDS: VITAMIN B COMP/VIT C/FOLIC ACID CAPSULE PO SCH (08:11)
[2018-11-09] MEDS: FAMOTIDINE 20 MG TABLET PO SCH (08:11)
[2018-11-09] MEDS: DOCUSATE SODIUM 250 MG CAPSULE PO SCH ×3 (08:12→21:00)
[2018-11-09] MEDS: CLOPIDOGREL BISULFATE 75 MG TABLET PO SCH (08:12)
[2018-11-09] MEDS: FOLIC ACID 1 MG TABLET PO SCH (08:12)
[2018-11-09] MEDS: NIFEdipine 30 MG ER TABLET PO SCH (08:13)
[2018-11-09 10:32] VITALS: BP 167/78
[2018-11-09] MEDS: HydrALAZINE HCL 25 MG TABLET PO SCH ×2 (11:08→21:06)
[2018-11-09] MEDS: CARVEDILOL 3.125 MG TABLET PO SCH ×2 (11:08→21:06)
[2018-11-09] MEDS: MethylPREDNISolone SOD SUCC 40 MG/ML VIAL IVP SCH ×3 (11:54→23:24)
[2018-11-09] MEDS: RAMIPRIL 5 MG CAPSULE PO SCH (11:54)
[2018-11-09] MEDS: INSULIN LISPRO 100 UNITS/ML SQ PRN ×3 (12:07→21:57)
[2018-11-09 12:58] LABS: GLUCOMETER DEV NAME(LOC) 5N.1; GLUCOSE,POINT OF CARE 147 MG/DL (70-110)
[2018-11-09 16:22] VITALS: BP 160/72
[2018-11-09 19:12] VITALS: BP 151/65
[2018-11-09] MEDS: ATORVASTATIN CALCIUM 20 MG TABLET PO SCH (21:06)
[2018-11-09] MEDS: BUDESONIDE 0.5 MG/2 ML NEB SOLUTION NEB SCH (22:58)
[2018-11-10] VITALS (7 sets, daily range): BP systolic 105–197; BP diastolic 53–93
[2018-11-10] MEDS: PIPERACILLIN SODIUM/TAZOBACTAM 2.25 GM in DEXTROSE 5%-WATER 50 ML IV SCH ×3 (05:08→22:00)
[2018-11-10] MEDS: PANTOPRAZOLE SODIUM 40 MG DR TABLET PO SCH (05:08)
[2018-11-10 06:05] LABS: GLUCOMETER DEV NAME(LOC) 5N.1; GLUCOSE,POINT OF CARE 269 MG/DL (70-110)
[2018-11-10 06:05] LABS: GLUCOMETER DEV NAME(LOC) 5N.1; GLUCOSE,POINT OF CARE 258 MG/DL (70-110)
[2018-11-10 06:09] LABS: BASOPHILS % (AUTO) 0.2 % (0.0-2.0); EOSINOPHILS % (AUTO) 0 % (1.0-6.0); HEMATOCRIT 25.2 % (41-53); HEMOGLOBIN 8.7 g/dL (13.5-17.5); LYMPHOCYTES # (AUTO) 0.4 K/uL (1.0-4.8); LYMPHOCYTES % (AUTO) 4.8 % (22.0-44.0); MEAN CORPUSCULAR HEMOGLOBIN 32.7 pg (26.0-34.0); MEAN CORPUSCULAR HGB CONC 34.5 G/dL (31.0-37.0); MEAN CORPUSCULAR VOLUME 95 fL (80-100); MONOCYTES # (AUTO) 0.1 K/uL (0.1-1.0); MONOCYTES % (AUTO) 1.2 % (2.0-9.0); NEUTROPHILS # (AUTO) 7.3 K/uL (1.8-7.7); PLATELET COUNT (AUTO) 287 K/uL (150-450); RED BLOOD CELL COUNT(AUTO) 2.66 MIL/uL (4.50-5.90); RED CELL DISTRIBUTION WIDTH 16.8 % (11.5-14.5)
[2018-11-10 06:15] LABS: NEUTROPHILS % (AUTO) 93.8 % (40.0-70.0)
[2018-11-10] MEDS: INSULIN LISPRO 100 UNITS/ML SQ PRN ×3 (06:22→18:04)
[2018-11-10 06:41] LABS: CALCIUM, TOTAL 9.6 mg/dL (8.8-10.5); MAGNESIUM 1.9 mg/dL (1.80-2.40); PHOSPHORUS 3.5 mg/dL (2.5-4.9)
[2018-11-10 06:44] LABS: GLUCOMETER DEV NAME(LOC) 5N.2; GLUCOSE,POINT OF CARE 208 MG/DL (70-110)
[2018-11-10 07:51] LABS: ALBUMIN 3.1 g/dL (3.4-5.0); BILIRUBIN,TOTAL 0.6 mg/dL (0.1-1.0); TOTAL PROTEIN, SERUM 8.9 g/dL (6.4-8.2)
[2018-11-10] MEDS: SEVELAMER CARBONATE 800 MG TABLET PO SCH ×3 (08:00→18:03)
[2018-11-10] MEDS: CALCIUM ACETATE 667 MG CAPSULE PO SCH ×3 (08:00→18:03)
[2018-11-10] MEDS: BUDESONIDE 0.5 MG/2 ML NEB SOLUTION NEB SCH ×2 (08:03→20:11)
[2018-11-10] MEDS ORDERED: SODIUM CHLORIDE 0.9% 2,000 ML IV ONE (08:19)
[2018-11-10] MEDS: HydrALAZINE HCL 25 MG TABLET PO SCH ×2 (12:32→20:00)
[2018-11-10] MEDS: PREGABALIN 50 MG CAPSULE PO SCH ×2 (12:32→20:00)
[2018-11-10] MEDS: RAMIPRIL 5 MG CAPSULE PO SCH (12:32)
[2018-11-10] MEDS: FAMOTIDINE 20 MG TABLET PO SCH (12:33)
[2018-11-10] MEDS: NIFEdipine 30 MG ER TABLET PO SCH (12:33)
[2018-11-10] MEDS: VITAMIN B COMP/VIT C/FOLIC ACID CAPSULE PO SCH (12:33)
[2018-11-10] MEDS: DOCUSATE SODIUM 250 MG CAPSULE PO SCH ×3 (12:33→20:02)
[2018-11-10 12:34] LABS: GLUCOMETER DEV NAME(LOC) 5N.1; GLUCOSE,POINT OF CARE 145 MG/DL (70-110)
[2018-11-10] MEDS: CARVEDILOL 3.125 MG TABLET PO SCH ×2 (12:34→20:00)
[2018-11-10] MEDS: FOLIC ACID 1 MG TABLET PO SCH (12:34)
[2018-11-10] MEDS: MethylPREDNISolone SOD SUCC 40 MG/ML VIAL IVP SCH ×2 (12:35→16:00)
[2018-11-10] MEDS: HEPARIN SODIUM,PORCINE 5,000 UNITS/ML VIAL SQ SCH ×2 (12:35→20:02)
[2018-11-10] MEDS: CLOPIDOGREL BISULFATE 75 MG TABLET PO SCH (12:35)
[2018-11-10] MEDS: EPOETIN ALFA 10,000 UNITS/ML VIAL SQ SCH (12:36)
[2018-11-10] MEDS ORDERED: HEPARIN SODIUM,PORCINE 1,000 UNITS/ML VIAL IVP ONE (17:14)
[2018-11-10] MEDS: ATORVASTATIN CALCIUM 20 MG TABLET PO SCH (20:00)
[2018-11-10 23:19] LABS: GLUCOMETER DEV NAME(LOC) 5N.2; GLUCOSE,POINT OF CARE 211 MG/DL (70-110)
[2018-11-10 23:19] LABS: GLUCOMETER DEV NAME(LOC) 5N.2; GLUCOSE,POINT OF CARE 290 MG/DL (70-110)
[2018-11-11] MEDS: MethylPREDNISolone SOD SUCC 40 MG/ML VIAL IVP SCH ×5 (00:30→23:50)
[2018-11-11] MEDS: PIPERACILLIN SODIUM/TAZOBACTAM 2.25 GM in DEXTROSE 5%-WATER 50 ML IV SCH ×4 (00:30→21:38)
[2018-11-11 04:04] VITALS: BP 150/77
[2018-11-11] MEDS: PANTOPRAZOLE SODIUM 40 MG DR TABLET PO SCH (05:55)
[2018-11-11] MEDS: INSULIN LISPRO 100 UNITS/ML SQ PRN ×4 (06:29→21:38)
[2018-11-11 06:47] LABS: CALCIUM, TOTAL 9.3 mg/dL (8.8-10.5); CREATININE 8.09 mg/dL (0.60-1.30); MAGNESIUM 1.6 mg/dL (1.80-2.40); POTASSIUM 5.9 mmol/L (3.5-5.1)
[2018-11-11 06:49] LABS: GLUCOMETER DEV NAME(LOC) 5N.2; GLUCOSE,POINT OF CARE 225 MG/DL (70-110)
[2018-11-11 08:12] VITALS: BP 154/65
[2018-11-11 08:18] LABS: ALBUMIN 3.1 g/dL (3.4-5.0); BILIRUBIN,TOTAL 0.5 mg/dL (0.1-1.0); TOTAL PROTEIN, SERUM 8.4 g/dL (6.4-8.2)
[2018-11-11] MEDS: HEPARIN SODIUM,PORCINE 5,000 UNITS/ML VIAL SQ SCH ×2 (08:21→20:01)
[2018-11-11] MEDS: NIFEdipine 30 MG ER TABLET PO SCH (08:21)
[2018-11-11] MEDS: VITAMIN B COMP/VIT C/FOLIC ACID CAPSULE PO SCH (08:21)
[2018-11-11] MEDS: PREGABALIN 50 MG CAPSULE PO SCH ×2 (08:21→20:01)
[2018-11-11] MEDS: CALCIUM ACETATE 667 MG CAPSULE PO SCH ×3 (08:21→18:00)
[2018-11-11] MEDS: FOLIC ACID 1 MG TABLET PO SCH (08:21)
[2018-11-11] MEDS: HydrALAZINE HCL 25 MG TABLET PO SCH ×2 (08:21→20:00)
[2018-11-11] MEDS: SEVELAMER CARBONATE 800 MG TABLET PO SCH ×3 (08:21→18:00)
[2018-11-11] MEDS: FAMOTIDINE 20 MG TABLET PO SCH (08:21)
[2018-11-11] MEDS: CLOPIDOGREL BISULFATE 75 MG TABLET PO SCH (08:21)
[2018-11-11] MEDS: CARVEDILOL 3.125 MG TABLET PO SCH ×2 (08:21→20:01)
[2018-11-11] MEDS: DOCUSATE SODIUM 250 MG CAPSULE PO SCH ×3 (08:22→20:01)
[2018-11-11] MEDS ORDERED: SODIUM POLYSTYRENE SULFONATE 15 GM/60 ML SUSPENSION BOTTLE PO ONE (08:30)
[2018-11-11 11:51] VITALS: BP 180/79
[2018-11-11 12:40] LABS: GLUCOMETER DEV NAME(LOC) 5N.1; GLUCOSE,POINT OF CARE 278 MG/DL (70-110)
[2018-11-11] MEDS: BUDESONIDE 0.5 MG/2 ML NEB SOLUTION NEB SCH ×2 (13:59→20:57)
[2018-11-11 15:51] VITALS: BP 178/73
[2018-11-11 19:30] VITALS: BP 145/66
[2018-11-11] MEDS: ATORVASTATIN CALCIUM 20 MG TABLET PO SCH (20:00)
[2018-11-11 21:47] LABS: GLUCOMETER DEV NAME(LOC) 5N.1; GLUCOSE,POINT OF CARE 279 MG/DL (70-110)
[2018-11-11 22:33] LABS: GLUCOMETER DEV NAME(LOC) 5N.2; GLUCOSE,POINT OF CARE 320 MG/DL (70-110)
[2018-11-11 23:40] VITALS: BP 145/74
[2018-11-12 04:54] VITALS: BP 152/62
[2018-11-12] MEDS: INSULIN LISPRO 100 UNITS/ML SQ PRN ×4 (05:42→21:06)
[2018-11-12] MEDS: PIPERACILLIN SODIUM/TAZOBACTAM 2.25 GM in DEXTROSE 5%-WATER 50 ML IV SCH ×3 (05:42→21:05)
[2018-11-12] MEDS: PANTOPRAZOLE SODIUM 40 MG DR TABLET PO SCH (05:44)
[2018-11-12 06:44] LABS: GLUCOMETER DEV NAME(LOC) 5N.1; GLUCOSE,POINT OF CARE 312 MG/DL (70-110)
[2018-11-12 07:12] LABS: CALCIUM, TOTAL 8.9 mg/dL (8.8-10.5); CREATININE 10.83 mg/dL (0.60-1.30); MAGNESIUM 1.8 mg/dL (1.80-2.40); PHOSPHORUS 7.3 mg/dL (2.5-4.9); POTASSIUM 5.1 mmol/L (3.5-5.1)
[2018-11-12] MEDS: VITAMIN B COMP/VIT C/FOLIC ACID CAPSULE PO SCH (08:00)
[2018-11-12] MEDS: CALCIUM ACETATE 667 MG CAPSULE PO SCH ×3 (08:00→18:10)
[2018-11-12] MEDS: SEVELAMER CARBONATE 800 MG TABLET PO SCH ×3 (08:00→18:10)
[2018-11-12] MEDS: MethylPREDNISolone SOD SUCC 40 MG/ML VIAL IVP SCH ×3 (08:00→23:56)
[2018-11-12] MEDS ORDERED: SODIUM CHLORIDE 0.9% 2,000 ML IV ONE (08:25)
[2018-11-12 08:26] VITALS: BP 158/80
[2018-11-12] MEDS: DOCUSATE SODIUM 250 MG CAPSULE PO SCH ×3 (09:00→21:00)
[2018-11-12] MEDS: HEPARIN SODIUM,PORCINE 5,000 UNITS/ML VIAL SQ SCH ×2 (09:00→21:00)
[2018-11-12 09:11] LABS: ALBUMIN 3.2 g/dL (3.4-5.0); BILIRUBIN,TOTAL 0.4 mg/dL (0.1-1.0); TOTAL PROTEIN, SERUM 8.4 g/dL (6.4-8.2)
[2018-11-12] MEDS: PREGABALIN 50 MG CAPSULE PO SCH ×2 (10:58→21:03)
[2018-11-12 11:14] VITALS: BP 186/88
[2018-11-12] MEDS: HydrALAZINE HCL 25 MG TABLET PO SCH ×2 (11:50→21:02)
[2018-11-12] MEDS: CARVEDILOL 3.125 MG TABLET PO SCH (11:50)
[2018-11-12] MEDS: NIFEdipine 30 MG ER TABLET PO SCH ×2 (11:50→21:03)
[2018-11-12] MEDS ORDERED: LIDOCAINE/PF 1% 2 ML VIAL INJ ONE (12:00)
[2018-11-12 13:04] LABS: GLUCOMETER DEV NAME(LOC) 5N.2; GLUCOSE,POINT OF CARE 217 MG/DL (70-110)
[2018-11-12] MEDS: CLOPIDOGREL BISULFATE 75 MG TABLET PO SCH (13:41)
[2018-11-12] MEDS: FAMOTIDINE 20 MG TABLET PO SCH (13:41)
[2018-11-12] MEDS: FOLIC ACID 1 MG TABLET PO SCH (13:41)
[2018-11-12] MEDS: EPOETIN ALFA 10,000 UNITS/ML VIAL SQ SCH (13:42)
[2018-11-12 14:11] LABS: HIV 1-2 SCREEN 4TH GEN W/RFLX Non Reactive (Non Reactive)
[2018-11-12] MEDS: BUDESONIDE 0.5 MG/2 ML NEB SOLUTION NEB SCH ×2 (15:00→20:18)
[2018-11-12] MEDS: ACETAMINOPHEN 500 MG TABLET PO PRN (15:13)
[2018-11-12 16:37] VITALS: BP 150/77
[2018-11-12 19:58] VITALS: BP 144/72
[2018-11-12] MEDS: ATORVASTATIN CALCIUM 20 MG TABLET PO SCH (21:02)
[2018-11-12] MEDS: CARVEDILOL 12.5 MG TABLET PO SCH (21:03)
[2018-11-12] MEDS ORDERED: SODIUM CHLORIDE 0.9% 100 ML ONE (21:24)
[2018-11-12 23:59] LABS: GLUCOMETER DEV NAME(LOC) 5N.1; GLUCOSE,POINT OF CARE 303 MG/DL (70-110)
[2018-11-12 23:59] LABS: GLUCOMETER DEV NAME(LOC) 5N.1; GLUCOSE,POINT OF CARE 320 MG/DL (70-110)
[2018-11-13 00:09] VITALS: BP 156/72
[2018-11-13 04:54] VITALS: BP 141/67
[2018-11-13] MEDS: PANTOPRAZOLE SODIUM 40 MG DR TABLET PO SCH (05:53)
[2018-11-13] MEDS: PIPERACILLIN SODIUM/TAZOBACTAM 2.25 GM in DEXTROSE 5%-WATER 50 ML IV SCH ×3 (05:53→21:40)
[2018-11-13] MEDS: INSULIN LISPRO 100 UNITS/ML SQ PRN ×3 (05:55→22:09)
[2018-11-13 06:35] LABS: GLUCOMETER DEV NAME(LOC) 5N.1; GLUCOSE,POINT OF CARE 307 MG/DL (70-110)
[2018-11-13 07:13] VITALS: BP 128/54
[2018-11-13 07:20] LABS: BILIRUBIN,TOTAL 0.4 mg/dL (0.1-1.0); CALCIUM, TOTAL 8.7 mg/dL (8.8-10.5); CREATININE 7.12 mg/dL (0.60-1.30)
[2018-11-13] MEDS: CALCIUM ACETATE 667 MG CAPSULE PO SCH ×3 (08:24→17:24)
[2018-11-13] MEDS: VITAMIN B COMP/VIT C/FOLIC ACID CAPSULE PO SCH (08:24)
[2018-11-13] MEDS: NIFEdipine 30 MG ER TABLET PO SCH ×2 (08:24→21:36)
[2018-11-13] MEDS: HydrALAZINE HCL 25 MG TABLET PO SCH ×2 (08:24→21:36)
[2018-11-13] MEDS: SEVELAMER CARBONATE 800 MG TABLET PO SCH ×3 (08:24→17:24)
[2018-11-13] MEDS: FOLIC ACID 1 MG TABLET PO SCH (08:25)
[2018-11-13] MEDS: DOCUSATE SODIUM 250 MG CAPSULE PO SCH ×3 (08:25→21:36)
[2018-11-13] MEDS: MethylPREDNISolone SOD SUCC 40 MG/ML VIAL IVP SCH ×2 (08:25→15:26)
[2018-11-13] MEDS: PREGABALIN 50 MG CAPSULE PO SCH ×2 (08:26→21:35)
[2018-11-13] MEDS: HEPARIN SODIUM,PORCINE 5,000 UNITS/ML VIAL SQ SCH ×2 (09:00→21:38)
[2018-11-13] MEDS: BUDESONIDE 0.5 MG/2 ML NEB SOLUTION NEB SCH ×2 (09:10→20:03)
[2018-11-13] MEDS: FAMOTIDINE 20 MG TABLET PO SCH (09:24)
[2018-11-13] MEDS: CLOPIDOGREL BISULFATE 75 MG TABLET PO SCH (09:24)
[2018-11-13] MEDS: CARVEDILOL 12.5 MG TABLET PO SCH ×2 (09:24→21:36)
[2018-11-13 10:51] VITALS: BP 133/77
[2018-11-13 15:29] VITALS: BP_SYST 141; BP_SYST 151; BP_DIAS 58; BP_DIAS 71
[2018-11-13] MEDS: PredniSONE 20 MG TABLET PO SCH (17:24)
[2018-11-13 18:04] LABS: GLUCOMETER DEV NAME(LOC) 5N.2; GLUCOSE,POINT OF CARE 394 MG/DL (70-110)
[2018-11-13 20:24] VITALS: BP 154/74
[2018-11-13] MEDS: ATORVASTATIN CALCIUM 20 MG TABLET PO SCH (21:35)
[2018-11-13] MEDS ORDERED: INSULIN LISPRO 100 UNITS/ML SQ ONE (22:00)
[2018-11-13] MEDS ORDERED: INSULIN GLARGINE,HUM.REC.ANLOG 100 UNITS/ML SQ ONE (22:00)
[2018-11-13 22:34] LABS: GLUCOMETER DEV NAME(LOC) 5N.1; GLUCOSE,POINT OF CARE 481 MG/DL (70-110)
[2018-11-14 00:10] VITALS: BP 146/82
[2018-11-14 04:05] VITALS: BP 140/67
[2018-11-14] MEDS: INSULIN LISPRO 100 UNITS/ML SQ PRN ×2 (06:03→12:14)
[2018-11-14] MEDS: PANTOPRAZOLE SODIUM 40 MG DR TABLET PO SCH (06:04)
[2018-11-14] MEDS: PIPERACILLIN SODIUM/TAZOBACTAM 2.25 GM in DEXTROSE 5%-WATER 50 ML IV SCH ×2 (06:04→14:03)
[2018-11-14] MEDS ORDERED: SODIUM CHLORIDE 0.9% 2,000 ML IV ONE (07:03)
[2018-11-14 07:56] VITALS: BP 150/63
[2018-11-14] MEDS: SEVELAMER CARBONATE 800 MG TABLET PO SCH ×2 (08:00→12:11)
[2018-11-14] MEDS: CALCIUM ACETATE 667 MG CAPSULE PO SCH ×3 (08:00→12:07)
[2018-11-14] MEDS: BUDESONIDE 0.5 MG/2 ML NEB SOLUTION NEB SCH (10:36)
[2018-11-14 11:10] VITALS: BP 131/71
[2018-11-14] MEDS ORDERED: LIDOCAINE/PF 1% 2 ML VIAL ID PRN (11:45)
[2018-11-14] MEDS: FOLIC ACID 1 MG TABLET PO SCH (12:04)
[2018-11-14] MEDS: CLOPIDOGREL BISULFATE 75 MG TABLET PO SCH (12:04)
[2018-11-14] MEDS: EPOETIN ALFA 10,000 UNITS/ML VIAL SQ SCH (12:04)
[2018-11-14] MEDS: HydrALAZINE HCL 25 MG TABLET PO SCH (12:04)
[2018-11-14] MEDS: FAMOTIDINE 20 MG TABLET PO SCH (12:05)
[2018-11-14] MEDS: CARVEDILOL 12.5 MG TABLET PO SCH (12:05)
[2018-11-14] MEDS: PredniSONE 20 MG TABLET PO SCH (12:05)
[2018-11-14] MEDS: NIFEdipine 30 MG ER TABLET PO SCH (12:05)
[2018-11-14] MEDS: VITAMIN B COMP/VIT C/FOLIC ACID CAPSULE PO SCH (12:05)
[2018-11-14] MEDS: DOCUSATE SODIUM 250 MG CAPSULE PO SCH ×2 (12:05→16:00)
[2018-11-14] MEDS: HEPARIN SODIUM,PORCINE 5,000 UNITS/ML VIAL SQ SCH (12:06)
[2018-11-14] MEDS: PREGABALIN 50 MG CAPSULE PO SCH (12:11)
[2018-11-14] MEDS ORDERED: DOCU250C91 PO (13:15)
[2018-11-14] MEDS ORDERED: PIPE2.2515 IV (13:19)
[2018-11-14] MEDS ORDERED: FOLI1CAP2 PO (13:23)
[2018-11-14] MEDS ORDERED: AUD NEB (13:30)
[2018-11-14] MEDS ORDERED: DIPH25 PO (13:32)
[2018-11-14] MEDS ORDERED: IPRNEB IH (13:35)
[2018-11-14] MEDS ORDERED: ONDA4VIA22 IV (13:38)
[2018-11-14 14:59] LABS: GLUCOMETER DEV NAME(LOC) 5N.1; GLUCOSE,POINT OF CARE 266 MG/DL (70-110)
[2018-11-14 14:59] LABS: GLUCOMETER DEV NAME(LOC) 5N.1; GLUCOSE,POINT OF CARE 206 MG/DL (70-110)
[2018-11-14 15:40] VITALS: BP 144/63
[2018-11-14] MEDS ORDERED: LIDOCAINE/PF 1% 2 ML VIAL ONE (17:36)
[2018-11-17] MEDS ORDERED: CARV12 PO (14:41)
== END 2018-11-14 16:55 | DRG 871 ==
LOC: EMS 04:09 → 5N 15:50
PROVIDERS: ADMIT Internal Medicine; ATTEND Internal Medicine
PROC: 5A1D70Z Performance of Urinary Filtration, Intermittent, Less than 6 Hours Per Day (ICD-10-PCS; principal; 2018-11-07)
PROC: 5A09357 Assistance with Respiratory Ventilation, Less than 24 Consecutive Hours, Continuous Positive Airway Pressure (ICD-10-PCS; 2018-11-07)
PROC: 5A1D70Z Performance of Urinary Filtration, Intermittent, Less than 6 Hours Per Day (ICD-10-PCS; 2018-11-10)
PROC: 5A1D70Z Performance of Urinary Filtration, Intermittent, Less than 6 Hours Per Day (ICD-10-PCS; 2018-11-12)
PROC: 5A1D70Z Performance of Urinary Filtration, Intermittent, Less than 6 Hours Per Day (ICD-10-PCS; 2018-11-14)
DX: A41.9 Sepsis, unspecified organism (principal); J18.9 Pneumonia, unspecified organism; N18.6 End stage renal disease; J96.01 Acute respiratory failure with hypoxia; J44.1 Chronic obstructive pulmonary disease with (acute) exacerbation; J44.0 Chronic obstructive pulmonary disease with (acute) lower respiratory infection; I50.32 Chronic diastolic (congestive) heart failure; I13.2 Hypertensive heart and chronic kidney disease with heart failure and with stage 5 chronic kidney disease, or end stage renal disease; E11.21 Type 2 diabetes mellitus with diabetic nephropathy; E11.40 Type 2 diabetes mellitus with diabetic neuropathy, unspecified; D63.1 Anemia in chronic kidney disease; K21.9 Gastro-esophageal reflux disease without esophagitis; D64.9 Anemia, unspecified; E11.22 Type 2 diabetes mellitus with diabetic chronic kidney disease; E11.51 Type 2 diabetes mellitus with diabetic peripheral angiopathy without gangrene; E78.2 Mixed hyperlipidemia; E87.5 Hyperkalemia; I25.10 Atherosclerotic heart disease of native coronary artery without angina pectoris; N40.0 Benign prostatic hyperplasia without lower urinary tract symptoms; Z82.49 Family history of ischemic heart disease and other diseases of the circulatory system; Z99.2 Dependence on renal dialysis; Z86.73 Personal history of transient ischemic attack (TIA), and cerebral infarction without residual deficits; Z83.3 Family history of diabetes mellitus; Z87.891 Personal history of nicotine dependence; Z90.49 Acquired absence of other specified parts of digestive tract; Z28.21 Immunization not carried out because of patient refusal
CPT/HCPCS: 71275; 83036; 83605; 83735; 84100; 84145; 84443; 86803; 87040; 87081; 87340; 87389; 93005; 94640; 94660; 96365; 96368; 96372; 97116; 97161; 97166; 97530; 97535; 99291; G0378; J0456; J0885; J1644; J1815; J2543; J2920; J3370; J3490; J7030; J7050; J7060

== ENCOUNTER 2019-02-09 08:27 | Emergency (ER) | payer MEDICARE, MEDICAID ==
[~2019-02-09] VITALS: Ht 165.1 cm; Wt 86.4 kg
[~2019-02-09 08:27] MED LIST changes: -ATOR10TA84 PO; +ATOR20TA86 PO; +AUD NEB; -BACTDSB PO; +CARV12 PO; -CARV6 PO; -CLOP75TA17 PO; +CLOP75TA3 PO; +DOCU250C91 PO; +FOLI1CAP2 PO; -HYDR-4455 PO; +IPRNEB IH; +NIFE60TA71 PO; -NIFE90TA45 PO; +ONDA4VIA22 IVP; -PANT40TA25 PO; -PRED20 PO
[2019-02-09 09:32] LABS: EOSINOPHILS % (AUTO) 2.6 % (1.0-6.0); HEMATOCRIT 34.6 % (41-53); HEMOGLOBIN 11.5 g/dL (13.5-17.5); LYMPHOCYTES # (AUTO) 0.8 K/uL (1.0-4.8); LYMPHOCYTES % (AUTO) 7.6 % (22.0-44.0); MEAN CORPUSCULAR HEMOGLOBIN 31.2 pg (26.0-34.0); MEAN CORPUSCULAR HGB CONC 33.2 G/dL (31.0-37.0); MEAN CORPUSCULAR VOLUME 94 fL (80-100); MONOCYTES # (AUTO) 0.7 K/uL (0.1-1.0); MONOCYTES % (AUTO) 6.1 % (2.0-9.0); NEUTROPHILS # (AUTO) 8.8 K/uL (1.8-7.7); NEUTROPHILS % (AUTO) 82.7 % (40.0-70.0); PLATELET COUNT (AUTO) 263 K/uL (150-450); RED BLOOD CELL COUNT(AUTO) 3.68 MIL/uL (4.50-5.90); RED CELL DISTRIBUTION WIDTH 16.3 % (11.5-14.5)
[2019-02-09 09:42] LABS: PROTHROMBIN TIME 10.4 SEC (9.4-11.6)
[2019-02-09 09:48] LABS: CALCIUM, TOTAL 9.6 mg/dL (8.8-10.5); CREATININE 7.94 mg/dL (0.60-1.30); POTASSIUM 3.5 mmol/L (3.5-5.1)
[2019-02-09 10:12] LABS: ALBUMIN 3.9 g/dL (3.4-5.0); BILIRUBIN,TOTAL 0.7 mg/dL (0.1-1.0); TOTAL PROTEIN, SERUM 9.4 g/dL (6.4-8.2)
[2019-02-09 11:48] VITALS: BP 178/81
[2019-02-09] MEDS ORDERED: ONDANSETRON HCL 4 MG/2 ML VIAL IVP ONE (14:15)
== END 2019-02-09 14:47 | disposition home or self-care (01) ==
LOC: EMS 08:29
DX: I11.0 Hypertensive heart disease with heart failure (principal); I50.9 Heart failure, unspecified; I25.10 Atherosclerotic heart disease of native coronary artery without angina pectoris; D64.9 Anemia, unspecified; F17.210 Nicotine dependence, cigarettes, uncomplicated; Z79.899 Other long term (current) drug therapy
CPT/HCPCS: 36415; 70450; 71045; 80053; 82550; 83880; 84484; 85025; 85610; 85730; 93005; 96374; 99285; J2405

== ENCOUNTER → 2019-08-03 | Outpatient (CLI) | payer MEDICARE, MEDICAID ==
[~2019-08-03] MED LIST changes: +DOCU-342 PO; -DOCU250C91 PO; -HEPA500018 SQ; -HYDR100T28 PO; +HYDR25TA84 PO; -ONDA4VIA22 IVP; +PREG25 PO; -PREG50 PO; +SEVE800T17 PO; -SEVEC800 PO
== END | disposition home or self-care (01) ==
LOC: RADPV 09:39
PROVIDERS: ATTEND Internal Medicine
DX: I51.7 Cardiomegaly (principal); M47.819 Spondylosis without myelopathy or radiculopathy, site unspecified; I70.0 Atherosclerosis of aorta

== ENCOUNTER 2019-09-01 11:36 | Inpatient (IN) | payer MEDICARE, MEDICAID ==
[~2019-09-01] VITALS: Ht 165.1 cm; Wt 86.2 kg
[2019-09-01 13:03] LABS: BASOPHILS % (AUTO) 0.8 % (0.0-2.0); EOSINOPHILS % (AUTO) 3.2 % (1.0-6.0); HEMATOCRIT 36.8 % (41-53); HEMOGLOBIN 12.3 g/dL (13.5-17.5); LYMPHOCYTES # (AUTO) 1.1 K/uL (1.0-4.8); LYMPHOCYTES % (AUTO) 11.5 % (22.0-44.0); MEAN CORPUSCULAR HEMOGLOBIN 32.3 pg (26.0-34.0); MEAN CORPUSCULAR HGB CONC 33.5 G/dL (31.0-37.0); MEAN CORPUSCULAR VOLUME 96 fL (80-100); MONOCYTES # (AUTO) 0.8 K/uL (0.1-1.0); MONOCYTES % (AUTO) 8.4 % (2.0-9.0); NEUTROPHILS # (AUTO) 7.4 K/uL (1.8-7.7); NEUTROPHILS % (AUTO) 76.1 % (40.0-70.0); PLATELET COUNT (AUTO) 320 K/uL (150-450); RED BLOOD CELL COUNT(AUTO) 3.82 MIL/uL (4.50-5.90); RED CELL DISTRIBUTION WIDTH 16.5 % (11.5-14.5)
[2019-09-01 13:20] LABS: CREATININE 14.01 mg/dL (0.60-1.30); POTASSIUM 5.2 mmol/L (3.5-5.1)
[2019-09-01 13:21] LABS: ALBUMIN 3.4 g/dL (3.4-5.0); BILIRUBIN,TOTAL 0.4 mg/dL (0.1-1.0); C-REACTIVE PROTEIN QUANT 4.79 mg/dL (0.00-0.30); CALCIUM, TOTAL 8.8 mg/dL (8.8-10.5); TOTAL PROTEIN, SERUM 9.3 g/dL (6.4-8.2)
[2019-09-01] MEDS ORDERED: FOLI0.8T2 PO (13:28)
[2019-09-01] MEDS ORDERED: PIPERACILLIN/TAZO 3.375 GM/D5W 50 ML IV ONE (13:30)
[2019-09-01] MEDS ORDERED: VANCOMYCIN HCL 1 GM/D5% WATER 200 ML IV ONE (13:30)
[2019-09-01] MEDS ORDERED: ONDANSETRON HCL 4 MG/2 ML VIAL IVP PRN (14:00)
[2019-09-01] MEDS ORDERED: 0.9% SODIUM CHLORIDE 10 ML SYRINGE IVP PRN (14:00)
[2019-09-01] MEDS ORDERED: ACETAMINOPHEN 325 MG TABLET PO PRN (14:00)
[2019-09-01 14:09] LABS: ERYTHROCYTE SEDIMENTATION RATE 108 MM/HR (0-15)
[2019-09-01 16:43] VITALS: BP 94/52
[2019-09-01 17:00] VITALS: BP 94/52
[2019-09-01 20:30] VITALS: BP 115/50
[2019-09-01] MEDS ORDERED: DiphenhydrAMINE HCL 25 MG CAPSULE PO PRN (21:00)
[2019-09-01] MEDS: DOCUSATE SODIUM 250 MG CAPSULE PO SCH (21:00)
[2019-09-01] MEDS ORDERED: ALBUTEROL SULFATE 2.5 MG/0.5 ML NEB SOLUTION NEB PRN (21:00)
[2019-09-01] MEDS ORDERED: DEXTROSE 50%-WATER 25 GM/50 ML SYRINGE IVP PRN (21:00)
[2019-09-01] MEDS ORDERED: CARVEDILOL 12.5 MG TABLET PO SCH (21:00)
[2019-09-01] MEDS ORDERED: ATORVASTATIN CALCIUM 20 MG TABLET PO SCH (21:00)
[2019-09-01] MEDS ORDERED: HydrALAZINE HCL 25 MG TABLET PO SCH (21:00)
[2019-09-01] MEDS ORDERED: IPRATROPIUM BROMIDE 0.5 MG/2.5 ML NEB SOLUTION NEB PRN (21:00)
[2019-09-01] MEDS: FAMOTIDINE 20 MG TABLET PO SCH (22:15)
[2019-09-01] MEDS: INSULIN GLARGINE,HUM.REC.ANLOG 100 UNITS/ML SQ SCH (22:19)
[2019-09-01] MEDS: INSULIN LISPRO 100 UNITS/ML SQ PRN (22:20)
[2019-09-01] MEDS: PREGABALIN 25 MG CAPSULE PO SCH (22:23)
[2019-09-02 00:22] VITALS: BP 136/60
[2019-09-02 00:53] LABS: GLUCOMETER DEV NAME(LOC) 5N.1; GLUCOSE,POINT OF CARE 228 MG/DL (70-110)
[2019-09-02 04:25] VITALS: BP 128/62
[2019-09-02] MEDS: ACETAMINOPHEN 325 MG TABLET PO PRN ×2 (04:26→19:50)
[2019-09-02 06:56] LABS: BASOPHILS % (AUTO) 0.9 % (0.0-2.0); EOSINOPHILS % (AUTO) 5.4 % (1.0-6.0); HEMATOCRIT 34.8 % (41-53); HEMOGLOBIN 11.6 g/dL (13.5-17.5); LYMPHOCYTES # (AUTO) 0.8 K/uL (1.0-4.8); LYMPHOCYTES % (AUTO) 10.7 % (22.0-44.0); MEAN CORPUSCULAR HGB CONC 33.4 G/dL (31.0-37.0); MEAN CORPUSCULAR VOLUME 96 fL (80-100); MONOCYTES % (AUTO) 12.4 % (2.0-9.0); NEUTROPHILS # (AUTO) 5.6 K/uL (1.8-7.7); NEUTROPHILS % (AUTO) 70.6 % (40.0-70.0); PLATELET COUNT (AUTO) 280 K/uL (150-450); RED BLOOD CELL COUNT(AUTO) 3.64 MIL/uL (4.50-5.90); RED CELL DISTRIBUTION WIDTH 16.4 % (11.5-14.5)
[2019-09-02 06:56] LABS: GLUCOMETER DEV NAME(LOC) 5N.2; GLUCOSE,POINT OF CARE 134 MG/DL (70-110)
[2019-09-02 06:56] LABS: GLUCOMETER DEV NAME(LOC) 5N.2; GLUCOSE,POINT OF CARE 188 MG/DL (70-110)
[2019-09-02 06:59] LABS: HEMOGLOBIN A1C 7.2 % (4.5-6.2)
[2019-09-02 07:14] LABS: ALBUMIN 2.9 g/dL (3.4-5.0); BILIRUBIN,TOTAL 0.4 mg/dL (0.1-1.0); CALCIUM, TOTAL 8.2 mg/dL (8.8-10.5); CHOL/HDL RATIO 2.8 (4.2-7.3); CREATININE 15.68 mg/dL (0.60-1.30); POTASSIUM 5.5 mmol/L (3.5-5.1); TOTAL PROTEIN, SERUM 8.1 g/dL (6.4-8.2)
[2019-09-02 07:24] VITALS: BP_SYST 128; BP_SYST 168; BP_DIAS 58; BP_DIAS 85
[2019-09-02] MEDS ORDERED: NIFEdipine 60 MG ER TABLET PO SCH (09:00)
[2019-09-02] MEDS: DOCUSATE SODIUM 250 MG CAPSULE PO SCH ×4 (09:00→22:05)
[2019-09-02] MEDS: VITAMIN B COMP/VIT C/FOLIC ACID CAPSULE PO SCH (09:00)
[2019-09-02] MEDS: CALCIUM ACETATE 667 MG CAPSULE PO SCH ×3 (09:06→18:11)
[2019-09-02] MEDS: FOLIC ACID 1 MG TABLET PO SCH (09:07)
[2019-09-02] MEDS: SEVELAMER CARBONATE 800 MG TABLET PO SCH ×3 (09:07→18:11)
[2019-09-02] MEDS: PREGABALIN 25 MG CAPSULE PO SCH ×2 (09:07→22:04)
[2019-09-02 12:00] VITALS: BP 132/68
[2019-09-02] MEDS ORDERED: ALBUTEROL SULFATE 2.5 MG/0.5 ML NEB SOLUTION NEB PRN (14:15)
[2019-09-02] MEDS ORDERED: 0.9% SODIUM CHLORIDE 10 ML SYRINGE IVP PRN ×2 (14:15)
[2019-09-02] MEDS ORDERED: ZOLPIDEM TARTRATE 5 MG TABLET PO PRN (14:15)
[2019-09-02] MEDS ORDERED: IPRATROPIUM BROMIDE 0.5 MG/2.5 ML NEB SOLUTION NEB PRN (14:15)
[2019-09-02] MEDS ORDERED: PIPERACILLIN SODIUM/TAZOBACTAM 0.75 GM in DEXTROSE 5%-WATER 50 ML IV PRN (14:45)
[2019-09-02 15:21] VITALS: BP 134/72
[2019-09-02] MEDS: RAMIPRIL 2.5 MG CAPSULE PO SCH ×2 (15:42→21:00)
[2019-09-02] MEDS: PIPERACILLIN SODIUM/TAZOBACTAM 2.25 GM in DEXTROSE 5%-WATER 50 ML IV SCH (15:43)
[2019-09-02] MEDS: ROSUVASTATIN CALCIUM 20 MG TABLET PO SCH (15:43)
[2019-09-02] MEDS: PANTOPRAZOLE SODIUM 40 MG DR TABLET PO SCH (15:43)
[2019-09-02] MEDS: INSULIN LISPRO 100 UNITS/ML SQ PRN ×2 (16:44→21:02)
[2019-09-02] MEDS: ASPIRIN 81 MG CHEWABLE TABLET PO SCH (18:11)
[2019-09-02 19:44] VITALS: BP 145/77
[2019-09-02] MEDS: ONDANSETRON HCL 4 MG/2 ML VIAL IVP PRN (19:54)
[2019-09-02] MEDS: INSULIN GLARGINE,HUM.REC.ANLOG 100 UNITS/ML SQ SCH (21:02)
[2019-09-02] MEDS: FAMOTIDINE 20 MG TABLET PO SCH (22:04)
[2019-09-02] MEDS: CARVEDILOL 12.5 MG TABLET PO SCH (22:05)
[2019-09-03] VITALS (7 sets, daily range): BP systolic 105–136; BP diastolic 58–75
[2019-09-03 01:28] LABS: GLUCOMETER DEV NAME(LOC) 5N.1; GLUCOSE,POINT OF CARE 130 MG/DL (70-110)
[2019-09-03 01:28] LABS: GLUCOMETER DEV NAME(LOC) 5N.2; GLUCOSE,POINT OF CARE 211 MG/DL (70-110)
[2019-09-03 01:29] LABS: GLUCOMETER DEV NAME(LOC) 5N.1; GLUCOSE,POINT OF CARE 233 MG/DL (70-110)
[2019-09-03] MEDS: PIPERACILLIN SODIUM/TAZOBACTAM 2.25 GM in DEXTROSE 5%-WATER 50 ML IV SCH ×2 (02:05→16:21)
[2019-09-03] MEDS: ACETAMINOPHEN 325 MG TABLET PO PRN ×3 (03:35→22:51)
[2019-09-03] MEDS: PANTOPRAZOLE SODIUM 40 MG DR TABLET PO SCH (05:34)
[2019-09-03] MEDS: PREGABALIN 25 MG CAPSULE PO SCH ×2 (08:06→21:12)
[2019-09-03] MEDS: VITAMIN B COMP/VIT C/FOLIC ACID CAPSULE PO SCH (08:06)
[2019-09-03] MEDS: CALCIUM ACETATE 667 MG CAPSULE PO SCH ×3 (08:07→17:58)
[2019-09-03] MEDS: SEVELAMER CARBONATE 800 MG TABLET PO SCH ×3 (08:07→17:58)
[2019-09-03] MEDS: ROSUVASTATIN CALCIUM 20 MG TABLET PO SCH (08:07)
[2019-09-03] MEDS: ASPIRIN 81 MG CHEWABLE TABLET PO SCH (08:07)
[2019-09-03] MEDS: FOLIC ACID 1 MG TABLET PO SCH (08:07)
[2019-09-03] MEDS: DOCUSATE SODIUM 250 MG CAPSULE PO SCH ×3 (08:08→21:00)
[2019-09-03] MEDS: CARVEDILOL 12.5 MG TABLET PO SCH ×2 (08:08→22:12)
[2019-09-03] MEDS: RAMIPRIL 2.5 MG CAPSULE PO SCH ×2 (08:08→21:12)
[2019-09-03] MEDS: NIFEdipine 30 MG ER TABLET PO SCH (08:09)
[2019-09-03 09:22] LABS: BASOPHILS % (AUTO) 1.1 % (0.0-2.0); EOSINOPHILS % (AUTO) 2.4 % (1.0-6.0); HEMATOCRIT 40.9 % (41-53); HEMOGLOBIN 13.3 g/dL (13.5-17.5); LYMPHOCYTES # (AUTO) 1.5 K/uL (1.0-4.8); LYMPHOCYTES % (AUTO) 12.8 % (22.0-44.0); MEAN CORPUSCULAR HEMOGLOBIN 31.8 pg (26.0-34.0); MEAN CORPUSCULAR HGB CONC 32.5 G/dL (31.0-37.0); MEAN CORPUSCULAR VOLUME 98 fL (80-100); MONOCYTES # (AUTO) 1.3 K/uL (0.1-1.0); MONOCYTES % (AUTO) 10.8 % (2.0-9.0); NEUTROPHILS # (AUTO) 8.7 K/uL (1.8-7.7); NEUTROPHILS % (AUTO) 72.9 % (40.0-70.0); PLATELET COUNT (AUTO) 340 K/uL (150-450); RED BLOOD CELL COUNT(AUTO) 4.18 MIL/uL (4.50-5.90); RED CELL DISTRIBUTION WIDTH 16.6 % (11.5-14.5)
[2019-09-03 09:33] LABS: INR 1.1 (0.9-1.1)
[2019-09-03 09:37] LABS: HEMOGLOBIN A1C 7.2 % (4.5-6.2)
[2019-09-03 09:47] LABS: CALCIUM, TOTAL 9.5 mg/dL (8.8-10.5); CHOL/HDL RATIO 3.1 (4.2-7.3); CREATININE 12.52 mg/dL (0.60-1.30); PHOSPHORUS 7.7 mg/dL (2.5-4.9); THYROID STIMULATING HORMONE 1.97 uIU/mL (0.36-3.74)
[2019-09-03 10:02] LABS: GLUCOMETER DEV NAME(LOC) 5N.1; GLUCOSE,POINT OF CARE 127 MG/DL (70-110)
[2019-09-03] MEDS ORDERED: SODIUM CHLORIDE 0.9% 2,000 ML ONE (15:26)
[2019-09-03 17:14] LABS: GLUCOMETER DEV NAME(LOC) 5N.2; GLUCOSE,POINT OF CARE 130 MG/DL (70-110)
[2019-09-03] MEDS: INSULIN LISPRO 100 UNITS/ML SQ PRN (17:59)
[2019-09-03 18:17] LABS: GLUCOMETER DEV NAME(LOC) 5N.1; GLUCOSE,POINT OF CARE 190 MG/DL (70-110)
[2019-09-03] MEDS: ONDANSETRON HCL 4 MG/2 ML VIAL IVP PRN (20:10)
[2019-09-03] MEDS: INSULIN GLARGINE,HUM.REC.ANLOG 100 UNITS/ML SQ SCH (21:00)
[2019-09-03] MEDS: FAMOTIDINE 20 MG TABLET PO SCH (21:12)
[2019-09-04] VITALS (8 sets, daily range): BP systolic 95–144; BP diastolic 41–90
[2019-09-04 00:38] LABS: GLUCOMETER DEV NAME(LOC) 5N.2; GLUCOSE,POINT OF CARE 153 MG/DL (70-110)
[2019-09-04] MEDS: DOCUSATE SODIUM 250 MG CAPSULE PO SCH ×5 (01:06→20:59)
[2019-09-04] MEDS: PIPERACILLIN SODIUM/TAZOBACTAM 2.25 GM in DEXTROSE 5%-WATER 50 ML IV SCH (02:38)
[2019-09-04] MEDS: ACETAMINOPHEN 325 MG TABLET PO PRN ×3 (06:21→23:29)
[2019-09-04] MEDS: PANTOPRAZOLE SODIUM 40 MG DR TABLET PO SCH (06:21)
[2019-09-04 07:41] LABS: BASOPHILS % (AUTO) 0.9 % (0.0-2.0); EOSINOPHILS % (AUTO) 2.6 % (1.0-6.0); HEMOGLOBIN 12.2 g/dL (13.5-17.5); LYMPHOCYTES # (AUTO) 0.8 K/uL (1.0-4.8); LYMPHOCYTES % (AUTO) 8.6 % (22.0-44.0); MEAN CORPUSCULAR HEMOGLOBIN 31.8 pg (26.0-34.0); MEAN CORPUSCULAR VOLUME 96 fL (80-100); MONOCYTES # (AUTO) 0.9 K/uL (0.1-1.0); MONOCYTES % (AUTO) 9.7 % (2.0-9.0); NEUTROPHILS # (AUTO) 7.5 K/uL (1.8-7.7); NEUTROPHILS % (AUTO) 78.2 % (40.0-70.0); PLATELET COUNT (AUTO) 293 K/uL (150-450); RED BLOOD CELL COUNT(AUTO) 3.84 MIL/uL (4.50-5.90); RED CELL DISTRIBUTION WIDTH 16.2 % (11.5-14.5)
[2019-09-04 07:53] LABS: INR 1.1 (0.9-1.1); PROTHROMBIN TIME 11.1 SEC (9.4-11.6)
[2019-09-04] MEDS: RAMIPRIL 2.5 MG CAPSULE PO SCH ×2 (07:53→20:44)
[2019-09-04] MEDS: SEVELAMER CARBONATE 800 MG TABLET PO SCH ×3 (07:53→18:31)
[2019-09-04] MEDS: CALCIUM ACETATE 667 MG CAPSULE PO SCH ×3 (07:53→18:31)
[2019-09-04] MEDS: NIFEdipine 30 MG ER TABLET PO SCH (07:54)
[2019-09-04] MEDS: CARVEDILOL 12.5 MG TABLET PO SCH ×2 (07:54→20:44)
[2019-09-04 07:56] LABS: ALBUMIN 2.9 g/dL (3.4-5.0); BILIRUBIN,TOTAL 0.5 mg/dL (0.1-1.0); CREATININE 10.56 mg/dL (0.60-1.30); POTASSIUM 5.9 mmol/L (3.5-5.1); TOTAL PROTEIN, SERUM 8.5 g/dL (6.4-8.2)
[2019-09-04] MEDS: VITAMIN B COMP/VIT C/FOLIC ACID CAPSULE PO SCH (07:56)
[2019-09-04] MEDS: ROSUVASTATIN CALCIUM 20 MG TABLET PO SCH (08:15)
[2019-09-04] MEDS: PREGABALIN 25 MG CAPSULE PO SCH ×2 (08:15→20:43)
[2019-09-04] MEDS: ASPIRIN 81 MG CHEWABLE TABLET PO SCH (08:16)
[2019-09-04] MEDS: FOLIC ACID 1 MG TABLET PO SCH (08:16)
[2019-09-04] MEDS ORDERED: LIDOCAINE/PF 1% 30 ML VIAL ONE (09:40)
[2019-09-04] MEDS ORDERED: HEPARIN SODIUM 1000 UNITS/NS 500 ML ONE ×2 (09:41→10:14)
[2019-09-04] MEDS ORDERED: SODIUM BICARBONATE 50 MEQ/50 ML VIAL ONE (09:41)
[2019-09-04] MEDS ORDERED: IOHEXOL 300 MG/ML 100 ML VIAL ONE (09:42)
[2019-09-04] MEDS ORDERED: FentaNYL CITRATE-PF 100 MCG/2 ML VIAL ONE (10:10)
[2019-09-04] MEDS ORDERED: MIDAZOLAM HCL 2 MG/2 ML VIAL ONE (10:11)
[2019-09-04] MEDS ORDERED: HEPARIN SODIUM,PORCINE 1,000 UNITS/ML 10 ML VIAL ONE (10:13)
[2019-09-04] MEDS ORDERED: SODIUM CHLORIDE 0.9% 500 ML IV ONE (10:20)
[2019-09-04] MEDS ORDERED: LIDOCAINE 1% 30 ML/SOD BICARB 8.4% 4 ML SQ ONE (10:25)
[2019-09-04 12:26] LABS: GLUCOMETER DEV NAME(LOC) 5N.1; GLUCOSE,POINT OF CARE 136 MG/DL (70-110)
[2019-09-04] MEDS ORDERED: IOVERSOL 350 MG/ML 150 ML VIAL ONE (13:31)
[2019-09-04] MEDS ORDERED: SODIUM CHLORIDE 0.9% 100 ML ONE (13:31)
[2019-09-04] MEDS ORDERED: SODIUM CHLORIDE 0.9% 2,000 ML ONE (14:23)
[2019-09-04 17:37] LABS: GLUCOMETER DEV NAME(LOC) 5N.2; GLUCOSE,POINT OF CARE 96 MG/DL (70-110)
[2019-09-04 19:43] LABS: CREATININE 7.43 mg/dL (0.60-1.30); POTASSIUM 4.2 mmol/L (3.5-5.1)
[2019-09-04] MEDS: ONDANSETRON HCL 4 MG/2 ML VIAL IVP PRN (20:21)
[2019-09-04] MEDS: FAMOTIDINE 20 MG TABLET PO SCH (20:44)
[2019-09-04] MEDS: INSULIN GLARGINE,HUM.REC.ANLOG 100 UNITS/ML SQ SCH (20:53)
[2019-09-04 23:21] LABS: GLUCOMETER DEV NAME(LOC) 5N.2; GLUCOSE,POINT OF CARE 100 MG/DL (70-110)
[2019-09-04 23:22] LABS: GLUCOMETER DEV NAME(LOC) 5N.2; GLUCOSE,POINT OF CARE 239 MG/DL (70-110)
[2019-09-05 00:21] VITALS: BP 110/68
[2019-09-05 04:46] VITALS: BP 127/62
[2019-09-05] MEDS: PANTOPRAZOLE SODIUM 40 MG DR TABLET PO SCH (05:51)
[2019-09-05 06:27] LABS: BASOPHILS % (AUTO) 1.2 % (0.0-2.0); HEMATOCRIT 39.6 % (41-53); HEMOGLOBIN 13.2 g/dL (13.5-17.5); LYMPHOCYTES # (AUTO) 0.9 K/uL (1.0-4.8); LYMPHOCYTES % (AUTO) 10.3 % (22.0-44.0); MEAN CORPUSCULAR HEMOGLOBIN 32.3 pg (26.0-34.0); MEAN CORPUSCULAR HGB CONC 33.3 G/dL (31.0-37.0); MEAN CORPUSCULAR VOLUME 97 fL (80-100); MONOCYTES # (AUTO) 0.9 K/uL (0.1-1.0); MONOCYTES % (AUTO) 10.8 % (2.0-9.0); NEUTROPHILS # (AUTO) 6.3 K/uL (1.8-7.7); NEUTROPHILS % (AUTO) 74.7 % (40.0-70.0); PLATELET COUNT (AUTO) 304 K/uL (150-450); RED BLOOD CELL COUNT(AUTO) 4.09 MIL/uL (4.50-5.90); RED CELL DISTRIBUTION WIDTH 16.3 % (11.5-14.5)
[2019-09-05 07:00] LABS: ALBUMIN 3.3 g/dL (3.4-5.0); BILIRUBIN,TOTAL 0.4 mg/dL (0.1-1.0); CALCIUM, TOTAL 9.2 mg/dL (8.8-10.5); CREATININE 9.72 mg/dL (0.60-1.30); POTASSIUM 4.8 mmol/L (3.5-5.1); TOTAL PROTEIN, SERUM 9.5 g/dL (6.4-8.2)
[2019-09-05] MEDS ORDERED: LIDOCAINE/PF 1% 30 ML VIAL ONE (07:23)
[2019-09-05] MEDS ORDERED: BUPIVACAINE HCL/PF 0.5% 30 ML VIAL ONE (07:23)
[2019-09-05] MEDS ORDERED: SODIUM CL IRRIG SOLN BAG 0 ML IRRIG ONE (07:24)
[2019-09-05 07:30] VITALS: BP 173/77
[2019-09-05] MEDS: SEVELAMER CARBONATE 800 MG TABLET PO SCH ×3 (08:00→18:01)
[2019-09-05] MEDS: CALCIUM ACETATE 667 MG CAPSULE PO SCH ×3 (08:00→18:01)
[2019-09-05] MEDS: RAMIPRIL 2.5 MG CAPSULE PO SCH ×2 (09:00→20:20)
[2019-09-05] MEDS ORDERED: SODIUM CHLORIDE 0.9% 1,000 ML ONE (09:18)
[2019-09-05] MEDS ORDERED: HYDROmorphone 2 MG/ML SYRINGE ONE (10:10)
[2019-09-05] MEDS ORDERED: ACETAMINOPHEN 1000 MG/ISO-OSM 100 ML IV ONE ×2 (10:19→10:30)
[2019-09-05] MEDS ORDERED: LIDOCAINE/PF 2% 5 ML SYRINGE IVP ONE (12:00)
[2019-09-05] MEDS ORDERED: PROPOFOL 1% 20 ML VIAL IVP ONE (12:00)
[2019-09-05 12:04] VITALS: BP 120/79
[2019-09-05 12:20] LABS: GLUCOMETER DEV NAME(LOC) 5N.2; GLUCOSE,POINT OF CARE 155 MG/DL (70-110)
[2019-09-05 12:21] LABS: GLUCOMETER DEV NAME(LOC) 5N.2; GLUCOSE,POINT OF CARE 97 MG/DL (70-110)
[2019-09-05] MEDS: ROSUVASTATIN CALCIUM 20 MG TABLET PO SCH (13:01)
[2019-09-05] MEDS: PREGABALIN 25 MG CAPSULE PO SCH ×2 (13:02→20:19)
[2019-09-05] MEDS: DOCUSATE SODIUM 250 MG CAPSULE PO SCH ×3 (13:02→20:24)
[2019-09-05] MEDS: VITAMIN B COMP/VIT C/FOLIC ACID CAPSULE PO SCH (13:02)
[2019-09-05] MEDS: CARVEDILOL 12.5 MG TABLET PO SCH ×2 (13:02→21:00)
[2019-09-05] MEDS: FOLIC ACID 1 MG TABLET PO SCH (13:03)
[2019-09-05] MEDS: ASPIRIN 81 MG CHEWABLE TABLET PO SCH (13:03)
[2019-09-05] MEDS ORDERED: VANCOMYCIN HCL 1 GM/D5% WATER 200 ML IV PRN (14:00)
[2019-09-05] MEDS: NIFEdipine 30 MG ER TABLET PO SCH (15:01)
[2019-09-05 15:06] LABS: GLUCOMETER DEV NAME(LOC) 5N.1; GLUCOSE,POINT OF CARE 95 MG/DL (70-110)
[2019-09-05 15:59] VITALS: BP 138/78
[2019-09-05] MEDS ORDERED: VANCOMYCIN HCL 1 GM/D5% WATER 200 ML IV ONE (16:00)
[2019-09-05] MEDS: PIPERACILLIN SODIUM/TAZOBACTAM 2.25 GM in DEXTROSE 5%-WATER 50 ML IV SCH (17:10)
[2019-09-05] MEDS ORDERED: SODIUM CHLORIDE 0.9% 100 ML ONE (17:13)
[2019-09-05 17:58] LABS: GLUCOMETER DEV NAME(LOC) 5N.2; GLUCOSE,POINT OF CARE 241 MG/DL (70-110)
[2019-09-05] MEDS: INSULIN LISPRO 100 UNITS/ML SQ PRN ×2 (18:05→20:22)
[2019-09-05] MEDS: FAMOTIDINE 20 MG TABLET PO SCH (20:19)
[2019-09-05] MEDS: ACETAMINOPHEN/CODEINE 300-15 MG TABLET PO PRN (20:20)
[2019-09-05] MEDS: INSULIN GLARGINE,HUM.REC.ANLOG 100 UNITS/ML SQ SCH (20:21)
[2019-09-05 21:16] VITALS: BP 94/45
[2019-09-06] VITALS (7 sets, daily range): BP systolic 100–152; BP diastolic 43–77
[2019-09-06] MEDS: PIPERACILLIN SODIUM/TAZOBACTAM 2.25 GM in DEXTROSE 5%-WATER 50 ML IV SCH ×3 (00:45→16:42)
[2019-09-06] MEDS: ACETAMINOPHEN 325 MG TABLET PO PRN ×3 (00:58→16:53)
[2019-09-06] MEDS: PANTOPRAZOLE SODIUM 40 MG DR TABLET PO SCH (06:09)
[2019-09-06] MEDS: INSULIN LISPRO 100 UNITS/ML SQ PRN ×2 (06:11→12:32)
[2019-09-06] MEDS: MORPHINE SULFATE 2 MG/ML SYRINGE IVP PRN ×3 (06:27→19:48)
[2019-09-06] MEDS: PREGABALIN 50 MG CAPSULE PO SCH ×3 (06:49→20:23)
[2019-09-06] MEDS: ACETAMINOPHEN/CODEINE 300-15 MG TABLET PO PRN (08:38)
[2019-09-06] MEDS: SEVELAMER CARBONATE 800 MG TABLET PO SCH ×3 (08:54→18:00)
[2019-09-06] MEDS: CALCIUM ACETATE 667 MG CAPSULE PO SCH ×3 (08:54→18:00)
[2019-09-06] MEDS: CARVEDILOL 12.5 MG TABLET PO SCH ×2 (08:55→20:23)
[2019-09-06] MEDS: VITAMIN B COMP/VIT C/FOLIC ACID CAPSULE PO SCH ×2 (08:55→09:00)
[2019-09-06] MEDS: RAMIPRIL 2.5 MG CAPSULE PO SCH ×2 (08:56→20:23)
[2019-09-06] MEDS: FOLIC ACID 1 MG TABLET PO SCH (08:56)
[2019-09-06] MEDS: NIFEdipine 30 MG ER TABLET PO SCH (08:56)
[2019-09-06] MEDS: ROSUVASTATIN CALCIUM 20 MG TABLET PO SCH (08:56)
[2019-09-06] MEDS: DOCUSATE SODIUM 250 MG CAPSULE PO SCH ×3 (08:56→20:23)
[2019-09-06] MEDS: ASPIRIN 81 MG CHEWABLE TABLET PO SCH (08:56)
[2019-09-06 11:21] LABS: ALBUMIN 3.2 g/dL (3.4-5.0); BILIRUBIN,TOTAL 0.5 mg/dL (0.1-1.0); CALCIUM, TOTAL 8.7 mg/dL (8.8-10.5); CREATININE 12.46 mg/dL (0.60-1.30); POTASSIUM 5.2 mmol/L (3.5-5.1); TOTAL PROTEIN, SERUM 9.4 g/dL (6.4-8.2)
[2019-09-06 11:50] LABS: GLUCOMETER DEV NAME(LOC) 5N.1; GLUCOSE,POINT OF CARE 233 MG/DL (70-110)
[2019-09-06 11:50] LABS: GLUCOMETER DEV NAME(LOC) 5N.1; GLUCOSE,POINT OF CARE 183 MG/DL (70-110)
[2019-09-06] MEDS ORDERED: SODIUM POLYSTYRENE SULFONATE 15 GM/60 ML SUSPENSION BOTTLE PO ONE (12:15)
[2019-09-06 16:12] LABS: GLUCOMETER DEV NAME(LOC) 5S.1; GLUCOSE,POINT OF CARE 149 MG/DL (70-110)
[2019-09-06] MEDS ORDERED: LEVOFLOXACIN 250 MG TABLET PO ONE (17:15)
[2019-09-06] MEDS: FAMOTIDINE 20 MG TABLET PO SCH (20:23)
[2019-09-06] MEDS: INSULIN GLARGINE,HUM.REC.ANLOG 100 UNITS/ML SQ SCH (20:26)
[2019-09-06 20:34] LABS: GLUCOMETER DEV NAME(LOC) 5N.1; GLUCOSE,POINT OF CARE 106 MG/DL (70-110)
[2019-09-06 20:34] LABS: GLUCOMETER DEV NAME(LOC) 5N.1; GLUCOSE,POINT OF CARE 116 MG/DL (70-110)
[2019-09-07] VITALS (7 sets, daily range): BP systolic 106–158; BP diastolic 58–102
[2019-09-07] MEDS: PIPERACILLIN SODIUM/TAZOBACTAM 2.25 GM in DEXTROSE 5%-WATER 50 ML IV SCH (00:43)
[2019-09-07] MEDS: ACETAMINOPHEN 325 MG TABLET PO PRN ×3 (00:43→19:38)
[2019-09-07] MEDS: ACETAMINOPHEN/CODEINE 300-15 MG TABLET PO PRN (05:10)
[2019-09-07] MEDS: PANTOPRAZOLE SODIUM 40 MG DR TABLET PO SCH (06:10)
[2019-09-07] MEDS: MORPHINE SULFATE 2 MG/ML SYRINGE IVP PRN ×3 (06:39→22:09)
[2019-09-07] MEDS: PREGABALIN 50 MG CAPSULE PO SCH ×3 (08:36→20:44)
[2019-09-07] MEDS: SEVELAMER CARBONATE 800 MG TABLET PO SCH ×3 (08:36→17:31)
[2019-09-07] MEDS: CALCIUM ACETATE 667 MG CAPSULE PO SCH ×3 (08:36→17:31)
[2019-09-07] MEDS: DOCUSATE SODIUM 250 MG CAPSULE PO SCH ×3 (09:00→20:44)
[2019-09-07] MEDS: VITAMIN B COMP/VIT C/FOLIC ACID CAPSULE PO SCH (09:00)
[2019-09-07] MEDS ORDERED: MORPHINE SULFATE 2 MG/ML SYRINGE IVP ONE (09:30)
[2019-09-07 10:01] LABS: BASOPHILS % (AUTO) 1.4 % (0.0-2.0); EOSINOPHILS % (AUTO) 1.8 % (1.0-6.0); HEMATOCRIT 29.3 % (41-53); HEMOGLOBIN 9.8 g/dL (13.5-17.5); LYMPHOCYTES % (AUTO) 8.2 % (22.0-44.0); MEAN CORPUSCULAR HEMOGLOBIN 31.5 pg (26.0-34.0); MEAN CORPUSCULAR HGB CONC 33.3 G/dL (31.0-37.0); MEAN CORPUSCULAR VOLUME 95 fL (80-100); MONOCYTES # (AUTO) 1.5 K/uL (0.1-1.0); MONOCYTES % (AUTO) 11.8 % (2.0-9.0); NEUTROPHILS # (AUTO) 9.7 K/uL (1.8-7.7); NEUTROPHILS % (AUTO) 76.8 % (40.0-70.0); PLATELET COUNT (AUTO) 251 K/uL (150-450); RED CELL DISTRIBUTION WIDTH 16.2 % (11.5-14.5)
[2019-09-07 10:14] LABS: ALBUMIN 2.7 g/dL (3.4-5.0); BILIRUBIN,TOTAL 0.5 mg/dL (0.1-1.0); CALCIUM, TOTAL 8.1 mg/dL (8.8-10.5); CREATININE 14.99 mg/dL (0.60-1.30); POTASSIUM 5.4 mmol/L (3.5-5.1); TOTAL PROTEIN, SERUM 8.2 g/dL (6.4-8.2); VANCOMYCIN,RANDOM 18.6 mcg/mL (25.0-50.0)
[2019-09-07 10:55] LABS: GLUCOMETER DEV NAME(LOC) 5N.1; GLUCOSE,POINT OF CARE 112 MG/DL (70-110)
[2019-09-07] MEDS ORDERED: VANCOMYCIN HCL 1 GM/D5% WATER 200 ML IV ONE (12:00)
[2019-09-07] MEDS: AMPICILLIN SODIUM/SULBACTAM NA 3 GM in SODIUM CHLORIDE 0.9% 100 ML IV SCH (13:44)
[2019-09-07] MEDS ORDERED: CLOPIDOGREL BISULFATE 75 MG TABLET PO SCH (13:45)
[2019-09-07] MEDS: ROSUVASTATIN CALCIUM 20 MG TABLET PO SCH (13:58)
[2019-09-07] MEDS: CARVEDILOL 12.5 MG TABLET PO SCH ×2 (13:59→20:45)
[2019-09-07] MEDS: CLOPIDOGREL BISULFATE 75 MG TABLET PO SCH (13:59)
[2019-09-07] MEDS: NIFEdipine 30 MG ER TABLET PO SCH (13:59)
[2019-09-07] MEDS: ASPIRIN 81 MG CHEWABLE TABLET PO SCH (14:01)
[2019-09-07] MEDS: FOLIC ACID 1 MG TABLET PO SCH (14:02)
[2019-09-07] MEDS: RAMIPRIL 2.5 MG CAPSULE PO SCH ×2 (14:04→20:44)
[2019-09-07] MEDS: FAMOTIDINE 20 MG TABLET PO SCH (20:44)
[2019-09-07] MEDS: INSULIN GLARGINE,HUM.REC.ANLOG 100 UNITS/ML SQ SCH (20:51)
[2019-09-08] VITALS (7 sets, daily range): BP systolic 90–121; BP diastolic 54–99
[2019-09-08 00:27] LABS: GLUCOMETER DEV NAME(LOC) 5N.1; GLUCOSE,POINT OF CARE 156 MG/DL (70-110)
[2019-09-08 00:27] LABS: GLUCOMETER DEV NAME(LOC) 5N.1; GLUCOSE,POINT OF CARE 66 MG/DL (70-110)
[2019-09-08 05:43] LABS: GLUCOMETER DEV NAME(LOC) 5N.2; GLUCOSE,POINT OF CARE 78 MG/DL (70-110)
[2019-09-08] MEDS: PANTOPRAZOLE SODIUM 40 MG DR TABLET PO SCH (06:23)
[2019-09-08] MEDS: INSULIN LISPRO 100 UNITS/ML SQ PRN ×3 (06:27→20:17)
[2019-09-08] MEDS ORDERED: SODIUM POLYSTYRENE SULFONATE 15 GM/60 ML SUSPENSION BOTTLE PO ONE (08:00)
[2019-09-08] MEDS: FOLIC ACID 1 MG TABLET PO SCH (08:11)
[2019-09-08] MEDS: ASPIRIN 81 MG CHEWABLE TABLET PO SCH (08:11)
[2019-09-08] MEDS: CARVEDILOL 12.5 MG TABLET PO SCH ×2 (08:12→21:00)
[2019-09-08] MEDS: RAMIPRIL 2.5 MG CAPSULE PO SCH ×2 (08:12→21:00)
[2019-09-08] MEDS: NIFEdipine 30 MG ER TABLET PO SCH (08:12)
[2019-09-08] MEDS: SEVELAMER CARBONATE 800 MG TABLET PO SCH ×3 (08:12→17:29)
[2019-09-08] MEDS: CALCIUM ACETATE 667 MG CAPSULE PO SCH ×3 (08:12→17:29)
[2019-09-08] MEDS: ROSUVASTATIN CALCIUM 20 MG TABLET PO SCH (08:12)
[2019-09-08] MEDS: DOCUSATE SODIUM 250 MG CAPSULE PO SCH ×3 (08:12→20:13)
[2019-09-08] MEDS: VITAMIN B COMP/VIT C/FOLIC ACID CAPSULE PO SCH (08:13)
[2019-09-08] MEDS: CLOPIDOGREL BISULFATE 75 MG TABLET PO SCH (08:13)
[2019-09-08] MEDS: PREGABALIN 50 MG CAPSULE PO SCH ×3 (08:13→20:12)
[2019-09-08] MEDS: LEVOFLOXACIN 500 MG TABLET PO SCH (08:13)
[2019-09-08 09:05] LABS: ALBUMIN 2.5 g/dL (3.4-5.0); BILIRUBIN,TOTAL 0.5 mg/dL (0.1-1.0); CALCIUM, TOTAL 8.4 mg/dL (8.8-10.5); CREATININE 11.21 mg/dL (0.60-1.30); POTASSIUM 4.8 mmol/L (3.5-5.1)
[2019-09-08] MEDS: AMPICILLIN SODIUM/SULBACTAM NA 3 GM in SODIUM CHLORIDE 0.9% 100 ML IV SCH (11:40)
[2019-09-08] MEDS ORDERED: METOCLOPRAMIDE HCL 5 MG/ML 2 ML VIAL IVP ONE (12:00)
[2019-09-08] MEDS ORDERED: ROCURONIUM BROMIDE 10 MG/ML 5 ML VIAL IVP ONE (12:00)
[2019-09-08] MEDS ORDERED: PROPOFOL 1% 20 ML VIAL IVP ONE (12:00)
[2019-09-08] MEDS ORDERED: GLYCOPYRROLATE 0.2 MG/ML VIAL IM ONE (12:00)
[2019-09-08] MEDS ORDERED: NALOXONE HCL 0.4 MG/ML VIAL IVP ONE (12:00)
[2019-09-08] MEDS ORDERED: NEOSTIGMINE METHYLSULFATE 1 MG/ML 10 ML VIAL IVP ONE (12:00)
[2019-09-08] MEDS ORDERED: ONDANSETRON HCL 4 MG/2 ML VIAL IVP ONE (12:00)
[2019-09-08] MEDS ORDERED: SUCCINYLCHOLINE CHLORIDE 20 MG/ML 10 ML VIAL IVP ONE (12:00)
[2019-09-08] MEDS ORDERED: DEXAMETHASONE SOD PHOS 4 MG/ML VIAL IVP ONE (12:00)
[2019-09-08] MEDS ORDERED: LIDOCAINE/PF 2% 5 ML VIAL INJ ONE (12:00)
[2019-09-08] MEDS: ACETAMINOPHEN 325 MG TABLET PO PRN (13:21)
[2019-09-08] MEDS: MORPHINE SULFATE 2 MG/ML SYRINGE IVP PRN (13:33)
[2019-09-08 14:11] LABS: GLUCOMETER DEV NAME(LOC) 5S.1; GLUCOSE,POINT OF CARE 180 MG/DL (70-110)
[2019-09-08 14:12] LABS: GLUCOMETER DEV NAME(LOC) 5S.1; GLUCOSE,POINT OF CARE 183 MG/DL (70-110)
[2019-09-08] MEDS: ACETAMINOPHEN 1000 MG/ISO-OSM 100 ML IV SCH ×2 (14:26→20:00)
[2019-09-08 17:45] LABS: GLUCOMETER DEV NAME(LOC) 5N.1; GLUCOSE,POINT OF CARE 126 MG/DL (70-110)
[2019-09-08] MEDS: FAMOTIDINE 20 MG TABLET PO SCH (20:12)
[2019-09-08] MEDS: INSULIN GLARGINE,HUM.REC.ANLOG 100 UNITS/ML SQ SCH (20:16)
[2019-09-09] MEDS: ACETAMINOPHEN 1000 MG/ISO-OSM 100 ML IV SCH ×2 (01:30→08:22)
[2019-09-09] MEDS: PANTOPRAZOLE SODIUM 40 MG DR TABLET PO SCH (06:28)
[2019-09-09] MEDS: INSULIN LISPRO 100 UNITS/ML SQ PRN ×2 (06:32→12:09)
[2019-09-09 07:54] VITALS: BP 125/63
[2019-09-09] MEDS: CARVEDILOL 12.5 MG TABLET PO SCH ×2 (08:18→21:02)
[2019-09-09] MEDS: VITAMIN B COMP/VIT C/FOLIC ACID CAPSULE PO SCH (08:18)
[2019-09-09] MEDS: ROSUVASTATIN CALCIUM 20 MG TABLET PO SCH (08:18)
[2019-09-09] MEDS: FOLIC ACID 1 MG TABLET PO SCH (08:18)
[2019-09-09] MEDS: SEVELAMER CARBONATE 800 MG TABLET PO SCH ×3 (08:18→18:36)
[2019-09-09] MEDS: CLOPIDOGREL BISULFATE 75 MG TABLET PO SCH (08:18)
[2019-09-09] MEDS: ASPIRIN 81 MG CHEWABLE TABLET PO SCH (08:19)
[2019-09-09] MEDS: PREGABALIN 50 MG CAPSULE PO SCH ×3 (08:19→21:02)
[2019-09-09] MEDS: CALCIUM ACETATE 667 MG CAPSULE PO SCH ×3 (08:19→18:37)
[2019-09-09] MEDS: DOCUSATE SODIUM 250 MG CAPSULE PO SCH ×3 (08:23→20:58)
[2019-09-09 11:19] LABS: ALBUMIN 2.4 g/dL (3.4-5.0); BILIRUBIN,TOTAL 0.5 mg/dL (0.1-1.0); CALCIUM, TOTAL 8.6 mg/dL (8.8-10.5); CREATININE 13.55 mg/dL (0.60-1.30); TOTAL PROTEIN, SERUM 8.2 g/dL (6.4-8.2)
[2019-09-09] MEDS: AMPICILLIN SODIUM/SULBACTAM NA 3 GM in SODIUM CHLORIDE 0.9% 100 ML IV SCH (11:31)
[2019-09-09 11:47] LABS: GLUCOMETER DEV NAME(LOC) 5N.1; GLUCOSE,POINT OF CARE 194 MG/DL (70-110)
[2019-09-09 11:48] VITALS: BP 123/99
[2019-09-09 11:51] LABS: GLUCOMETER DEV NAME(LOC) 5S.1; GLUCOSE,POINT OF CARE 148 MG/DL (70-110)
[2019-09-09] MEDS ORDERED: MANNITOL 25%-12.5 GM/50 ML VIAL IVP ONE (12:30)
[2019-09-09] MEDS ORDERED: SODIUM CHLORIDE 0.9% 2,000 ML ONE (12:31)
[2019-09-09] MEDS: MORPHINE SULFATE 2 MG/ML SYRINGE IVP PRN ×2 (15:20→21:35)
[2019-09-09 16:57] LABS: C-REACTIVE PROTEIN QUANT 20.59 mg/dL (0.00-0.30)
[2019-09-09] MEDS: ACETAMINOPHEN 325 MG TABLET PO PRN ×2 (18:37→23:07)
[2019-09-09 20:00] VITALS: BP 130/53
[2019-09-09 20:03] LABS: GLUCOMETER DEV NAME(LOC) 5S.1; GLUCOSE,POINT OF CARE 174 MG/DL (70-110)
[2019-09-09 20:04] LABS: GLUCOMETER DEV NAME(LOC) 5S.1; GLUCOSE,POINT OF CARE 92 MG/DL (70-110)
[2019-09-09] MEDS: FAMOTIDINE 20 MG TABLET PO SCH (21:02)
[2019-09-09] MEDS: INSULIN GLARGINE,HUM.REC.ANLOG 100 UNITS/ML SQ SCH (21:04)
[2019-09-09 21:19] LABS: GLUCOMETER DEV NAME(LOC) 5S.1; GLUCOSE,POINT OF CARE 125 MG/DL (70-110)
[2019-09-10 00:08] VITALS: BP 111/66
[2019-09-10 04:26] VITALS: BP 115/52
[2019-09-10] MEDS: PANTOPRAZOLE SODIUM 40 MG DR TABLET PO SCH (05:18)
[2019-09-10 05:40] LABS: GLUCOMETER DEV NAME(LOC) 5N.1; GLUCOSE,POINT OF CARE 76 MG/DL (70-110)
[2019-09-10 07:39] VITALS: BP 150/71
[2019-09-10] MEDS: ACETAMINOPHEN 325 MG TABLET PO PRN ×2 (08:47→23:08)
[2019-09-10] MEDS: VITAMIN B COMP/VIT C/FOLIC ACID CAPSULE PO SCH (09:37)
[2019-09-10] MEDS: CLOPIDOGREL BISULFATE 75 MG TABLET PO SCH (09:37)
[2019-09-10] MEDS: SEVELAMER CARBONATE 800 MG TABLET PO SCH ×3 (09:38→18:00)
[2019-09-10] MEDS: ASPIRIN 81 MG CHEWABLE TABLET PO SCH (09:38)
[2019-09-10] MEDS: DOCUSATE SODIUM 250 MG CAPSULE PO SCH ×3 (09:38→20:40)
[2019-09-10] MEDS: CARVEDILOL 12.5 MG TABLET PO SCH ×2 (09:38→20:40)
[2019-09-10] MEDS: ROSUVASTATIN CALCIUM 20 MG TABLET PO SCH (09:38)
[2019-09-10] MEDS: PREGABALIN 50 MG CAPSULE PO SCH ×3 (09:38→20:41)
[2019-09-10] MEDS: FOLIC ACID 1 MG TABLET PO SCH (09:38)
[2019-09-10] MEDS: LEVOFLOXACIN 500 MG TABLET PO SCH (09:38)
[2019-09-10] MEDS: CALCIUM ACETATE 667 MG CAPSULE PO SCH ×3 (09:38→18:00)
[2019-09-10] MEDS: AMPICILLIN SODIUM/SULBACTAM NA 3 GM in SODIUM CHLORIDE 0.9% 100 ML IV SCH (11:51)
[2019-09-10] MEDS: ISO OSM IV SCH ×2 (14:00→20:00)
[2019-09-10] MEDS ORDERED: ACETAMINOPHEN 1000 MG/ISO-OSM 100 ML IV SCH (14:00)
[2019-09-10] MEDS ORDERED: [UNRECOGNIZED DRUG - OTHER] IV SCH (14:00)
[2019-09-10] MEDS: ACETAMINOPHEN IV SCH ×2 (14:00→20:00)
[2019-09-10] MEDS ORDERED: ACETAMINOPHEN IV SCH (14:00)
[2019-09-10 19:54] LABS: GLUCOMETER DEV NAME(LOC) 5N.1; GLUCOSE,POINT OF CARE 114 MG/DL (70-110)
[2019-09-10 20:07] VITALS: BP 161/73
[2019-09-10] MEDS: FAMOTIDINE 20 MG TABLET PO SCH (20:41)
[2019-09-10] MEDS: INSULIN GLARGINE,HUM.REC.ANLOG 100 UNITS/ML SQ SCH (21:36)
[2019-09-10] MEDS: INSULIN LISPRO 100 UNITS/ML SQ PRN (21:37)
[2019-09-10 22:56] LABS: GLUCOMETER DEV NAME(LOC) 5S.1; GLUCOSE,POINT OF CARE 158 MG/DL (70-110)
[2019-09-10 22:56] LABS: GLUCOMETER DEV NAME(LOC) 5S.1; GLUCOSE,POINT OF CARE 100 MG/DL (70-110)
[2019-09-11 00:01] VITALS: BP 124/62
[2019-09-11 04:12] VITALS: BP 112/64
[2019-09-11] MEDS: ISO OSM IV SCH ×2 (05:13→12:56)
[2019-09-11] MEDS: ACETAMINOPHEN IV SCH ×2 (05:13→12:56)
[2019-09-11] MEDS: PANTOPRAZOLE SODIUM 40 MG DR TABLET PO SCH (05:30)
[2019-09-11] MEDS: MORPHINE SULFATE 2 MG/ML SYRINGE IVP PRN (06:47)
[2019-09-11] MEDS: SEVELAMER CARBONATE 800 MG TABLET PO SCH ×3 (10:18→18:26)
[2019-09-11] MEDS: VITAMIN B COMP/VIT C/FOLIC ACID CAPSULE PO SCH (10:18)
[2019-09-11] MEDS: CALCIUM ACETATE 667 MG CAPSULE PO SCH ×3 (10:19→18:26)
[2019-09-11] MEDS: ROSUVASTATIN CALCIUM 20 MG TABLET PO SCH (10:19)
[2019-09-11] MEDS: CLOPIDOGREL BISULFATE 75 MG TABLET PO SCH (10:19)
[2019-09-11] MEDS: PREGABALIN 50 MG CAPSULE PO SCH ×3 (10:19→21:19)
[2019-09-11] MEDS: CARVEDILOL 12.5 MG TABLET PO SCH ×2 (10:20→21:00)
[2019-09-11] MEDS: ASPIRIN 81 MG CHEWABLE TABLET PO SCH (10:20)
[2019-09-11] MEDS: AMPICILLIN SODIUM/SULBACTAM NA 3 GM in SODIUM CHLORIDE 0.9% 100 ML IV SCH (10:20)
[2019-09-11] MEDS: FOLIC ACID 1 MG TABLET PO SCH (10:20)
[2019-09-11] MEDS: DOCUSATE SODIUM 250 MG CAPSULE PO SCH ×3 (10:20→21:19)
[2019-09-11 11:34] VITALS: BP 135/61
[2019-09-11 12:26] LABS: GLUCOMETER DEV NAME(LOC) 5N.1; GLUCOSE,POINT OF CARE 130 MG/DL (70-110)
[2019-09-11 15:32] VITALS: BP 138/64
[2019-09-11] MEDS: INSULIN LISPRO 100 UNITS/ML SQ PRN (18:27)
[2019-09-11 19:14] LABS: GLUCOMETER DEV NAME(LOC) 5S.1; GLUCOSE,POINT OF CARE 78 MG/DL (70-110)
[2019-09-11 19:18] LABS: GLUCOMETER DEV NAME(LOC) 5N.1; GLUCOSE,POINT OF CARE 176 MG/DL (70-110)
[2019-09-11 19:45] VITALS: BP 98/51
[2019-09-11] MEDS: ACETAMINOPHEN 325 MG TABLET PO PRN (19:57)
[2019-09-11] MEDS: INSULIN GLARGINE,HUM.REC.ANLOG 100 UNITS/ML SQ SCH (21:00)
[2019-09-11] MEDS: FAMOTIDINE 20 MG TABLET PO SCH (21:19)
[2019-09-11 21:46] LABS: GLUCOMETER DEV NAME(LOC) 5N.1; GLUCOSE,POINT OF CARE 119 MG/DL (70-110)
[2019-09-12] VITALS (7 sets, daily range): BP systolic 119–151; BP diastolic 41–77
[2019-09-12] MEDS: PANTOPRAZOLE SODIUM 40 MG DR TABLET PO SCH (06:05)
[2019-09-12] MEDS: INSULIN LISPRO 100 UNITS/ML SQ PRN ×4 (06:06→20:50)
[2019-09-12 06:59] LABS: GLUCOMETER DEV NAME(LOC) 5S.1; GLUCOSE,POINT OF CARE 152 MG/DL (70-110)
[2019-09-12] MEDS: LEVOFLOXACIN 500 MG TABLET PO SCH (08:29)
[2019-09-12] MEDS: CALCIUM ACETATE 667 MG CAPSULE PO SCH ×3 (08:29→17:44)
[2019-09-12] MEDS: CLOPIDOGREL BISULFATE 75 MG TABLET PO SCH (08:30)
[2019-09-12] MEDS: DOCUSATE SODIUM 250 MG CAPSULE PO SCH ×3 (08:30→20:39)
[2019-09-12] MEDS: PREGABALIN 50 MG CAPSULE PO SCH ×3 (08:30→20:38)
[2019-09-12] MEDS: FOLIC ACID 1 MG TABLET PO SCH (08:31)
[2019-09-12] MEDS: CARVEDILOL 12.5 MG TABLET PO SCH ×2 (08:31→20:38)
[2019-09-12] MEDS: ASPIRIN 81 MG CHEWABLE TABLET PO SCH (08:31)
[2019-09-12] MEDS: VITAMIN B COMP/VIT C/FOLIC ACID CAPSULE PO SCH (08:32)
[2019-09-12] MEDS: SEVELAMER CARBONATE 800 MG TABLET PO SCH ×3 (08:38→17:44)
[2019-09-12] MEDS: ROSUVASTATIN CALCIUM 20 MG TABLET PO SCH (08:38)
[2019-09-12] MEDS: AMPICILLIN SODIUM/SULBACTAM NA 3 GM in SODIUM CHLORIDE 0.9% 100 ML IV SCH (10:50)
[2019-09-12 13:05] LABS: GLUCOMETER DEV NAME(LOC) 5N.1; GLUCOSE,POINT OF CARE 187 MG/DL (70-110)
[2019-09-12] MEDS: ACETAMINOPHEN/CODEINE 300-15 MG TABLET PO PRN (15:02)
[2019-09-12] MEDS: FAMOTIDINE 20 MG TABLET PO SCH (20:38)
[2019-09-12] MEDS: INSULIN GLARGINE,HUM.REC.ANLOG 100 UNITS/ML SQ SCH (20:53)
[2019-09-13 01:33] LABS: GLUCOMETER DEV NAME(LOC) 5N.1; GLUCOSE,POINT OF CARE 165 MG/DL (70-110)
[2019-09-13 01:33] LABS: GLUCOMETER DEV NAME(LOC) 5N.1; GLUCOSE,POINT OF CARE 181 MG/DL (70-110)
[2019-09-13] MEDS: ACETAMINOPHEN 325 MG TABLET PO PRN (04:20)
[2019-09-13 05:10] VITALS: BP 113/56
[2019-09-13] MEDS: PANTOPRAZOLE SODIUM 40 MG DR TABLET PO SCH (06:03)
[2019-09-13] MEDS: INSULIN LISPRO 100 UNITS/ML SQ PRN ×2 (06:05→17:37)
[2019-09-13 07:00] VITALS: BP 122/58
[2019-09-13] MEDS: ASPIRIN 81 MG CHEWABLE TABLET PO SCH (08:17)
[2019-09-13] MEDS: ROSUVASTATIN CALCIUM 20 MG TABLET PO SCH (08:17)
[2019-09-13] MEDS: CALCIUM ACETATE 667 MG CAPSULE PO SCH ×3 (08:18→17:33)
[2019-09-13] MEDS: SEVELAMER CARBONATE 800 MG TABLET PO SCH ×3 (08:18→17:33)
[2019-09-13] MEDS: PREGABALIN 50 MG CAPSULE PO SCH ×3 (08:18→20:20)
[2019-09-13] MEDS: CLOPIDOGREL BISULFATE 75 MG TABLET PO SCH (08:19)
[2019-09-13] MEDS: CARVEDILOL 12.5 MG TABLET PO SCH ×2 (08:19→20:20)
[2019-09-13] MEDS: DOCUSATE SODIUM 250 MG CAPSULE PO SCH ×3 (08:20→20:26)
[2019-09-13] MEDS: FOLIC ACID 1 MG TABLET PO SCH (08:22)
[2019-09-13] MEDS: VITAMIN B COMP/VIT C/FOLIC ACID CAPSULE PO SCH (08:22)
[2019-09-13 11:00] VITALS: BP 132/63
[2019-09-13] MEDS: AMPICILLIN SODIUM/SULBACTAM NA 3 GM in SODIUM CHLORIDE 0.9% 100 ML IV SCH (11:16)
[2019-09-13 14:59] LABS: GLUCOMETER DEV NAME(LOC) 5S.1; GLUCOSE,POINT OF CARE 107 MG/DL (70-110)
[2019-09-13 14:59] LABS: GLUCOMETER DEV NAME(LOC) 5S.1; GLUCOSE,POINT OF CARE 98 MG/DL (70-110)
[2019-09-13 14:59] LABS: GLUCOMETER DEV NAME(LOC) 5S.1; GLUCOSE,POINT OF CARE 103 MG/DL (70-110)
[2019-09-13 15:37] VITALS: BP 130/77
[2019-09-13 19:59] VITALS: BP 145/70
[2019-09-13 20:10] LABS: GLUCOMETER DEV NAME(LOC) 5S.1; GLUCOSE,POINT OF CARE 170 MG/DL (70-110)
[2019-09-13] MEDS: FAMOTIDINE 20 MG TABLET PO SCH (20:20)
[2019-09-13] MEDS: ACETAMINOPHEN/CODEINE 300-15 MG TABLET PO PRN (20:20)
[2019-09-13] MEDS: INSULIN GLARGINE,HUM.REC.ANLOG 100 UNITS/ML SQ SCH (20:26)
[2019-09-13 23:50] VITALS: BP 122/66
[2019-09-14 05:15] VITALS: BP 136/64
[2019-09-14 06:07] LABS: C-REACTIVE PROTEIN QUANT 10.38 mg/dL (0.00-0.30)
[2019-09-14 06:34] LABS: CALCIUM, TOTAL 8.7 mg/dL (8.8-10.5); CREATININE 14.56 mg/dL (0.60-1.30)
[2019-09-14] MEDS: PANTOPRAZOLE SODIUM 40 MG DR TABLET PO SCH (06:45)
[2019-09-14 06:49] LABS: POTASSIUM 6.5 mmol/L (3.5-5.1)
[2019-09-14] MEDS ORDERED: CALCIUM GLUCONATE 100 MG/ML 10 ML IVP ONE (07:00)
[2019-09-14 07:09] LABS: BASOPHILS % (AUTO) 0.5 % (0.0-2.0); HEMATOCRIT 24.5 % (41-53); HEMOGLOBIN 8.2 g/dL (13.5-17.5); LYMPHOCYTES # (AUTO) 0.7 K/uL (1.0-4.8); LYMPHOCYTES % (AUTO) 5.2 % (22.0-44.0); MEAN CORPUSCULAR HEMOGLOBIN 31.7 pg (26.0-34.0); MEAN CORPUSCULAR HGB CONC 33.6 G/dL (31.0-37.0); MEAN CORPUSCULAR VOLUME 95 fL (80-100); MONOCYTES # (AUTO) 1.3 K/uL (0.1-1.0); MONOCYTES % (AUTO) 9.5 % (2.0-9.0); NEUTROPHILS # (AUTO) 11.3 K/uL (1.8-7.7); NEUTROPHILS % (AUTO) 82.8 % (40.0-70.0); PLATELET COUNT (AUTO) 293 K/uL (150-450); RED BLOOD CELL COUNT(AUTO) 2.59 MIL/uL (4.50-5.90); RED CELL DISTRIBUTION WIDTH 16.1 % (11.5-14.5)
[2019-09-14 07:18] VITALS: BP 142/96
[2019-09-14] MEDS ORDERED: SODIUM CHLORIDE 0.9% 2,000 ML ONE (07:22)
[2019-09-14] MEDS: CALCIUM ACETATE 667 MG CAPSULE PO SCH ×3 (08:00→17:17)
[2019-09-14] MEDS: SEVELAMER CARBONATE 800 MG TABLET PO SCH ×3 (08:00→17:16)
[2019-09-14] MEDS: CLOPIDOGREL BISULFATE 75 MG TABLET PO SCH (08:30)
[2019-09-14] MEDS: PREGABALIN 50 MG CAPSULE PO SCH ×2 (09:00→17:04)
[2019-09-14] MEDS: DOCUSATE SODIUM 250 MG CAPSULE PO SCH ×2 (09:00→16:00)
[2019-09-14 11:33] VITALS: BP 178/51
[2019-09-14 11:57] LABS: GLUCOMETER DEV NAME(LOC) 5N.1; GLUCOSE,POINT OF CARE 142 MG/DL (70-110)
[2019-09-14 11:59] LABS: GLUCOMETER DEV NAME(LOC) 5N.1; GLUCOSE,POINT OF CARE 142 MG/DL (70-110)
[2019-09-14] MEDS: VITAMIN B COMP/VIT C/FOLIC ACID CAPSULE PO SCH (12:28)
[2019-09-14] MEDS: FOLIC ACID 1 MG TABLET PO SCH (12:28)
[2019-09-14] MEDS: LEVOFLOXACIN 500 MG TABLET PO SCH (12:28)
[2019-09-14] MEDS: ROSUVASTATIN CALCIUM 20 MG TABLET PO SCH (12:28)
[2019-09-14] MEDS: ASPIRIN 81 MG CHEWABLE TABLET PO SCH (12:29)
[2019-09-14] MEDS: CARVEDILOL 12.5 MG TABLET PO SCH (12:29)
[2019-09-14] MEDS: AMPICILLIN SODIUM/SULBACTAM NA 3 GM in SODIUM CHLORIDE 0.9% 100 ML IV SCH (13:13)
[2019-09-14 17:04] LABS: GLUCOMETER DEV NAME(LOC) 5S.1; GLUCOSE,POINT OF CARE 66 MG/DL (70-110)
[2019-09-14 17:04] LABS: GLUCOMETER DEV NAME(LOC) 5S.1; GLUCOSE,POINT OF CARE 81 MG/DL (70-110)
[2019-09-14] MEDS: INSULIN LISPRO 100 UNITS/ML SQ PRN (17:20)
[2019-09-15 04:07] LABS: GLUCOMETER DEV NAME(LOC) 5N.1; GLUCOSE,POINT OF CARE 179 MG/DL (70-110)
== END 2019-09-14 18:30 | DRG 255 ==
LOC: EMS 11:39 → 5N 15:19
PROVIDERS: ADMIT Internal Medicine; ATTEND Internal Medicine
PROC: 5A1D70Z Performance of Urinary Filtration, Intermittent, Less than 6 Hours Per Day (ICD-10-PCS; 2019-09-03)
PROC: B4101ZZ Fluoroscopy of Abdominal Aorta using Low Osmolar Contrast (ICD-10-PCS; 2019-09-04)
PROC: 5A1D70Z Performance of Urinary Filtration, Intermittent, Less than 6 Hours Per Day (ICD-10-PCS; 2019-09-04)
PROC: 0Y6T0Z0 Detachment at Right 3rd Toe, Complete, Open Approach (ICD-10-PCS; principal; 2019-09-05 08:30)
PROC: 5A1D70Z Performance of Urinary Filtration, Intermittent, Less than 6 Hours Per Day (ICD-10-PCS; 2019-09-07)
PROC: 5A1D70Z Performance of Urinary Filtration, Intermittent, Less than 6 Hours Per Day (ICD-10-PCS; 2019-09-09)
PROC: 5A1D70Z Performance of Urinary Filtration, Intermittent, Less than 6 Hours Per Day (ICD-10-PCS; 2019-09-11)
PROC: 5A1D70Z Performance of Urinary Filtration, Intermittent, Less than 6 Hours Per Day (ICD-10-PCS; 2019-09-14)
DX: E11.52 Type 2 diabetes mellitus with diabetic peripheral angiopathy with gangrene (principal); N18.6 End stage renal disease; I96 Gangrene, not elsewhere classified; I50.32 Chronic diastolic (congestive) heart failure; M86.9 Osteomyelitis, unspecified; E87.1 Hypo-osmolality and hyponatremia; I13.2 Hypertensive heart and chronic kidney disease with heart failure and with stage 5 chronic kidney disease, or end stage renal disease; I25.10 Atherosclerotic heart disease of native coronary artery without angina pectoris; E87.5 Hyperkalemia; E78.5 Hyperlipidemia, unspecified; E11.22 Type 2 diabetes mellitus with diabetic chronic kidney disease; D64.9 Anemia, unspecified; E66.01 Morbid (severe) obesity due to excess calories; R23.0 Cyanosis; E11.69 Type 2 diabetes mellitus with other specified complication; I44.1 Atrioventricular block, second degree; M19.90 Unspecified osteoarthritis, unspecified site; Z79.02 Long term (current) use of antithrombotics/antiplatelets; Z79.4 Long term (current) use of insulin; Z79.82 Long term (current) use of aspirin; Z79.899 Other long term (current) drug therapy; Z83.3 Family history of diabetes mellitus; Z99.2 Dependence on renal dialysis; Z82.49 Family history of ischemic heart disease and other diseases of the circulatory system; Z68.31 Body mass index [BMI] 31.0-31.9, adult; Z87.891 Personal history of nicotine dependence; Z91.19 Patient's noncompliance with other medical treatment and regimen
CPT/HCPCS: 73718; 75635; 83036; 83735; 84100; 84443; 85651; 86140; 87040; 87070; 87081; 87205; 87340; 88305; 88311; 93005; 93925; 97116; 97162; 97166; 97530; 97535; J0131; J0295; J0330; J0610; J0690; J1100; J1170; J1644; J1815; J2150; J2250; J2270; J2310; J2405; J2543; J2704; J2765; J3010; J3370; J3490; J7030; J7050; J7060; Q9967

== ENCOUNTER 2019-09-20 10:34 | Inpatient (IN) | payer MEDICARE, MEDICAID ==
[~2019-09-20] VITALS: Ht 167.6 cm; Wt 78.9 kg
[2019-09-20] VITALS (7 sets, daily range): BP systolic 111–153; BP diastolic 50–88
[~2019-09-20 10:34] MED LIST changes: +FOLI0.8T2 PO; -FOLI1CAP2 PO
[2019-09-20] MEDS ORDERED: LEVO500 PO (10:45)
[2019-09-20] MEDS ORDERED: RAMI2.5C55 PO (10:45)
[2019-09-20] MEDS ORDERED: AMOX1TAB15 PO (10:45)
[2019-09-20 11:16] LABS: BASOPHILS % (AUTO) 0.5 % (0.0-2.0); EOSINOPHILS % (AUTO) 1.1 % (1.0-6.0); HEMATOCRIT 21.2 % (41-53); HEMOGLOBIN 7.1 g/dL (13.5-17.5); LYMPHOCYTES # (AUTO) 0.7 K/uL (1.0-4.8); LYMPHOCYTES % (AUTO) 3.9 % (22.0-44.0); MEAN CORPUSCULAR HEMOGLOBIN 31.5 pg (26.0-34.0); MEAN CORPUSCULAR HGB CONC 33.3 G/dL (31.0-37.0); MEAN CORPUSCULAR VOLUME 94 fL (80-100); MONOCYTES # (AUTO) 1.1 K/uL (0.1-1.0); NEUTROPHILS # (AUTO) 15.9 K/uL (1.8-7.7); PLATELET COUNT (AUTO) 370 K/uL (150-450); RED BLOOD CELL COUNT(AUTO) 2.24 MIL/uL (4.50-5.90); RED CELL DISTRIBUTION WIDTH 16.9 % (11.5-14.5)
[2019-09-20 11:17] LABS: NEUTROPHILS % (AUTO) 88.5 % (40.0-70.0)
[2019-09-20 11:28] LABS: INR 1.3 (0.9-1.1)
[2019-09-20] MEDS ORDERED: SODIUM CHLORIDE 0.9% 500 ML IV ONE (11:30)
[2019-09-20 11:41] LABS: CALCIUM, TOTAL 7.8 mg/dL (8.8-10.5); CREATININE 8.04 mg/dL (0.60-1.30)
[2019-09-20 11:43] LABS: ALBUMIN 2.6 g/dL (3.4-5.0); BILIRUBIN,TOTAL 0.7 mg/dL (0.1-1.0); TOTAL PROTEIN, SERUM 8.4 g/dL (6.4-8.2)
[2019-09-20] MEDS ORDERED: PREG50 PO (12:40)
[2019-09-20] MEDS ORDERED: 0.9% SODIUM CHLORIDE 10 ML SYRINGE IVP PRN ×3 (12:45→15:15)
[2019-09-20] MEDS ORDERED: ONDANSETRON HCL 4 MG/2 ML VIAL IVP PRN ×2 (12:45→15:15)
[2019-09-20] MEDS ORDERED: ACETAMINOPHEN 325 MG TABLET PO PRN ×2 (12:45→15:15)
[2019-09-20] MEDS ORDERED: ONDANSETRON HCL 4 MG/2 ML VIAL IVP ONE (13:15)
[2019-09-20] MEDS ORDERED: LEVOFLOXACIN 500 MG TABLET PO SCH (15:15)
[2019-09-20] MEDS ORDERED: IPRATROPIUM BROMIDE 0.5 MG/2.5 ML NEB SOLUTION NEB PRN ×2 (15:15)
[2019-09-20] MEDS ORDERED: ZOLPIDEM TARTRATE 5 MG TABLET PO PRN (15:15)
[2019-09-20] MEDS ORDERED: HYDROCODONE/ACETAMINOPHEN 5-325 MG TABLET PO PRN (15:15)
[2019-09-20] MEDS ORDERED: ALBUTEROL SULFATE 2.5 MG/0.5 ML NEB SOLUTION NEB PRN (15:15)
[2019-09-20 15:18] LABS: GLUCOSE,POINT OF CARE 103 MG/DL (70-110)
[2019-09-20] MEDS: PANTOPRAZOLE SODIUM 40 MG DR TABLET PO SCH (15:56)
[2019-09-20] MEDS: DOCUSATE SODIUM 250 MG CAPSULE PO SCH ×4 (16:00→21:19)
[2019-09-20] MEDS ORDERED: DOCUSATE SODIUM 250 MG CAPSULE PO SCH (16:00)
[2019-09-20] MEDS ORDERED: PREGABALIN 50 MG CAPSULE PO SCH (16:00)
[2019-09-20] MEDS: AMOX TR/POT CLAV 500 MG/125 MG TABLET PO SCH (16:04)
[2019-09-20 16:05] LABS: BASOPHILS % (AUTO) 0.2 % (0.0-2.0); HEMATOCRIT 24.6 % (41-53); HEMOGLOBIN 8.1 g/dL (13.5-17.5); LYMPHOCYTES # (AUTO) 0.9 K/uL (1.0-4.8); LYMPHOCYTES % (AUTO) 5.2 % (22.0-44.0); MEAN CORPUSCULAR HEMOGLOBIN 30.9 pg (26.0-34.0); MEAN CORPUSCULAR HGB CONC 32.9 G/dL (31.0-37.0); MEAN CORPUSCULAR VOLUME 94 fL (80-100); MONOCYTES # (AUTO) 1.1 K/uL (0.1-1.0); MONOCYTES % (AUTO) 6.4 % (2.0-9.0); NEUTROPHILS # (AUTO) 15.4 K/uL (1.8-7.7); PLATELET COUNT (AUTO) 356 K/uL (150-450); RED BLOOD CELL COUNT(AUTO) 2.62 MIL/uL (4.50-5.90); RED CELL DISTRIBUTION WIDTH 15.4 % (11.5-14.5)
[2019-09-20 16:08] LABS: NEUTROPHILS % (AUTO) 87.2 % (40.0-70.0)
[2019-09-20] MEDS: SEVELAMER CARBONATE 800 MG TABLET PO SCH (17:09)
[2019-09-20] MEDS: CALCIUM ACETATE 667 MG CAPSULE PO SCH (17:09)
[2019-09-20] MEDS ORDERED: FAMOTIDINE 20 MG TABLET PO SCH (21:00)
[2019-09-20] MEDS ORDERED: ATORVASTATIN CALCIUM 20 MG TABLET PO SCH (21:00)
[2019-09-20] MEDS ORDERED: CARVEDILOL 12.5 MG TABLET PO SCH (21:00)
[2019-09-21 00:21] LABS: GLUCOSE,POINT OF CARE 127 MG/DL (70-110)
[2019-09-21 04:00] VITALS: BP 141/68
[2019-09-21 04:59] LABS: BASOPHILS % (AUTO) 0.7 % (0.0-2.0); EOSINOPHILS % (AUTO) 1.1 % (1.0-6.0); HEMATOCRIT 25.7 % (41-53); HEMOGLOBIN 8.6 g/dL (13.5-17.5); LYMPHOCYTES # (AUTO) 0.8 K/uL (1.0-4.8); LYMPHOCYTES % (AUTO) 5.6 % (22.0-44.0); MEAN CORPUSCULAR HEMOGLOBIN 31.5 pg (26.0-34.0); MEAN CORPUSCULAR HGB CONC 33.5 G/dL (31.0-37.0); MEAN CORPUSCULAR VOLUME 94 fL (80-100); MONOCYTES # (AUTO) 1.1 K/uL (0.1-1.0); MONOCYTES % (AUTO) 7.2 % (2.0-9.0); NEUTROPHILS # (AUTO) 12.9 K/uL (1.8-7.7); NEUTROPHILS % (AUTO) 85.4 % (40.0-70.0); PLATELET COUNT (AUTO) 307 K/uL (150-450); RED BLOOD CELL COUNT(AUTO) 2.73 MIL/uL (4.50-5.90); RED CELL DISTRIBUTION WIDTH 15.1 % (11.5-14.5)
[2019-09-21 05:13] LABS: % IRON SATURATION 32.2 % (30-44)
[2019-09-21 05:14] LABS: ALBUMIN 2.3 g/dL (3.4-5.0); BILIRUBIN,TOTAL 0.5 mg/dL (0.1-1.0); CALCIUM, TOTAL 7.7 mg/dL (8.8-10.5); CREATININE 9.58 mg/dL (0.60-1.30); MAGNESIUM 1.8 mg/dL (1.80-2.40); PHOSPHORUS 6.2 mg/dL (2.5-4.9); POTASSIUM 5.1 mmol/L (3.5-5.1); TOTAL PROTEIN, SERUM 7.4 g/dL (6.4-8.2)
[2019-09-21] MEDS: PANTOPRAZOLE SODIUM 40 MG DR TABLET PO SCH (06:45)
[2019-09-21 08:00] VITALS: BP 136/50
[2019-09-21] MEDS ORDERED: NIFEdipine 60 MG ER TABLET PO SCH (09:00)
[2019-09-21] MEDS ORDERED: EPOETIN ALFA 10,000 UNITS/ML VIAL SQ SCH (09:00)
[2019-09-21] MEDS ORDERED: FOLIC ACID 1 MG TABLET PO SCH (09:00)
[2019-09-21] MEDS: AMOX TR/POT CLAV 500 MG/125 MG TABLET PO SCH (09:11)
[2019-09-21] MEDS: CALCIUM ACETATE 667 MG CAPSULE PO SCH ×3 (09:11→17:30)
[2019-09-21] MEDS: SEVELAMER CARBONATE 800 MG TABLET PO SCH ×3 (09:11→17:30)
[2019-09-21] MEDS: DOCUSATE SODIUM 250 MG CAPSULE PO SCH ×3 (09:12→20:50)
[2019-09-21 12:00] VITALS: BP 168/81
[2019-09-21] MEDS ORDERED: DEXTROSE 50%-WATER 25 GM/50 ML SYG IVP PRN (15:15)
[2019-09-21] MEDS ORDERED: INSULIN LISPRO 100 UNITS/ML SQ PRN ×2 (15:15→15:30)
[2019-09-21] MEDS ORDERED: GLUCAGON,HUMAN RECOMBINANT 1 MG VIAL IM PRN (15:15)
[2019-09-21] MEDS ORDERED: DEXTROSE 50%-WATER 25 GM/50 ML SYRINGE IVP PRN (15:30)
[2019-09-21 16:00] VITALS: BP 97/53
[2019-09-21] MEDS ORDERED: DiphenhydrAMINE HCL 25 MG CAPSULE PO PRN (16:15)
[2019-09-21 17:25] LABS: GLUCOSE,POINT OF CARE 162 MG/DL (70-110)
[2019-09-21 20:00] VITALS: BP 154/50
[2019-09-21 22:03] LABS: GLUCOSE,POINT OF CARE 164 MG/DL (70-110)
== END 2019-09-21 21:00 | DRG 314 ==
LOC: EMS 10:36 → ICU 23:04
PROVIDERS: ADMIT Internal Medicine; ATTEND Internal Medicine
PROC: 30233N1 Transfusion of Nonautologous Red Blood Cells into Peripheral Vein, Percutaneous Approach (ICD-10-PCS; principal; 2019-09-20)
DX: T82.838A Hemorrhage due to vascular prosthetic devices, implants and grafts, initial encounter (principal); K72.00 Acute and subacute hepatic failure without coma; N18.6 End stage renal disease; E11.52 Type 2 diabetes mellitus with diabetic peripheral angiopathy with gangrene; I13.2 Hypertensive heart and chronic kidney disease with heart failure and with stage 5 chronic kidney disease, or end stage renal disease; I50.32 Chronic diastolic (congestive) heart failure; D64.9 Anemia, unspecified; E11.22 Type 2 diabetes mellitus with diabetic chronic kidney disease; E78.5 Hyperlipidemia, unspecified; I44.0 Atrioventricular block, first degree; Z99.2 Dependence on renal dialysis; Y83.2 Surgical operation with anastomosis, bypass or graft as the cause of abnormal reaction of the patient, or of later complication, without mention of misadventure at the time of the procedure; Y92.89 Other specified places as the place of occurrence of the external cause; E11.40 Type 2 diabetes mellitus with diabetic neuropathy, unspecified; I25.10 Atherosclerotic heart disease of native coronary artery without angina pectoris; I70.0 Atherosclerosis of aorta; Z79.02 Long term (current) use of antithrombotics/antiplatelets; Z79.4 Long term (current) use of insulin; Z79.899 Other long term (current) drug therapy; Z86.73 Personal history of transient ischemic attack (TIA), and cerebral infarction without residual deficits; Z87.891 Personal history of nicotine dependence; Z91.19 Patient's noncompliance with other medical treatment and regimen
CPT/HCPCS: 36556; 76705; 83540; 83550; 83735; 84100; 86850; 86900; 86901; 86920; 87081; 93005; 99291; G0378; J0885; J2405; P9016

== ENCOUNTER 2019-10-14 08:32 | Inpatient (IN) | payer MEDICARE, MEDICAID ==
[~2019-10-14] VITALS: Ht 165.1 cm; Wt 77.8 kg
[2019-10-14] VITALS (8 sets, daily range): BP systolic 116–148; BP diastolic 56–89
[~2019-10-14 08:32] MED LIST changes: +AMOX1TAB15 PO; -HYDR25TA84 PO; +LEVO-72 PO; +NIFE-39 PO; -NIFE60TA71 PO; -PREG25 PO; +PREG50 PO; +RAMI2.5C55 PO
[2019-10-14] MEDS ORDERED: IPRA3AMP24 IH (08:50)
[2019-10-14] MEDS ORDERED: PHOSLOC PO (08:50)
[2019-10-14 09:05] LABS: BASOPHILS % (AUTO) 0.2 % (0.0-2.0); EOSINOPHILS % (AUTO) 3.1 % (1.0-6.0); LYMPHOCYTES # (AUTO) 0.5 K/uL (1.0-4.8); LYMPHOCYTES % (AUTO) 4.7 % (22.0-44.0); MEAN CORPUSCULAR HGB CONC 33.5 G/dL (31.0-37.0); MEAN CORPUSCULAR VOLUME 95 fL (80-100); MONOCYTES # (AUTO) 0.8 K/uL (0.1-1.0); MONOCYTES % (AUTO) 7.2 % (2.0-9.0); NEUTROPHILS # (AUTO) 9.7 K/uL (1.8-7.7); NEUTROPHILS % (AUTO) 84.8 % (40.0-70.0); PLATELET COUNT (AUTO) 291 K/uL (150-450); RED BLOOD CELL COUNT(AUTO) 2.02 MIL/uL (4.50-5.90); RED CELL DISTRIBUTION WIDTH 16.8 % (11.5-14.5)
[2019-10-14 09:09] LABS: HEMOGLOBIN 6.5 g/dL (13.5-17.5)
[2019-10-14 09:10] LABS: HEMATOCRIT 19.3 % (41-53)
[2019-10-14] MEDS ORDERED: 0.9% SODIUM CHLORIDE 10 ML SYRINGE IVP PRN (09:15)
[2019-10-14] MEDS ORDERED: ONDANSETRON HCL 4 MG/2 ML VIAL IVP PRN (09:15)
[2019-10-14] MEDS ORDERED: ACETAMINOPHEN 325 MG TABLET PO PRN (09:15)
[2019-10-14 09:17] LABS: INR 1.1 (0.9-1.1); PROTHROMBIN TIME 11.4 SEC (9.4-11.6)
[2019-10-14 09:35] LABS: CALCIUM, TOTAL 8.7 mg/dL (8.8-10.5); CREATININE 5.21 mg/dL (0.60-1.30); POTASSIUM 3.1 mmol/L (3.5-5.1)
[2019-10-14 09:41] LABS: ALBUMIN 2.8 g/dL (3.4-5.0); BILIRUBIN,TOTAL 0.4 mg/dL (0.1-1.0); TOTAL PROTEIN, SERUM 8.7 g/dL (6.4-8.2)
[2019-10-14] MEDS ORDERED: SODIUM CHLORIDE 0.9% 500 ML IV ONE (11:02)
[2019-10-14 17:14] LABS: BASOPHILS % (AUTO) 0.4 % (0.0-2.0); EOSINOPHILS % (AUTO) 3.2 % (1.0-6.0); HEMATOCRIT 24.8 % (41-53); HEMOGLOBIN 8.3 g/dL (13.5-17.5); LYMPHOCYTES # (AUTO) 0.5 K/uL (1.0-4.8); LYMPHOCYTES % (AUTO) 4.2 % (22.0-44.0); MEAN CORPUSCULAR HGB CONC 33.3 G/dL (31.0-37.0); MEAN CORPUSCULAR VOLUME 93 fL (80-100); MONOCYTES # (AUTO) 0.8 K/uL (0.1-1.0); MONOCYTES % (AUTO) 6.4 % (2.0-9.0); NEUTROPHILS # (AUTO) 10.3 K/uL (1.8-7.7); PLATELET COUNT (AUTO) 291 K/uL (150-450); RED BLOOD CELL COUNT(AUTO) 2.66 MIL/uL (4.50-5.90); RED CELL DISTRIBUTION WIDTH 16.9 % (11.5-14.5)
[2019-10-14 17:17] LABS: NEUTROPHILS % (AUTO) 85.8 % (40.0-70.0)
[2019-10-14] MEDS ORDERED: DiphenhydrAMINE HCL 25 MG CAPSULE PO PRN (19:15)
[2019-10-14] MEDS ORDERED: DEXTROSE 50%-WATER 25 GM/50 ML SYRINGE IVP PRN (19:30)
[2019-10-14] MEDS: CARVEDILOL 12.5 MG TABLET PO SCH (20:22)
[2019-10-14] MEDS: ATORVASTATIN CALCIUM 20 MG TABLET PO SCH (20:22)
[2019-10-14] MEDS: PREGABALIN 50 MG CAPSULE PO SCH (20:23)
[2019-10-14] MEDS: FAMOTIDINE 20 MG TABLET PO SCH (20:23)
[2019-10-14] MEDS: INSULIN LISPRO 100 UNITS/ML SQ PRN (20:26)
[2019-10-14] MEDS: IPRATROPIUM BROMIDE 0.5 MG/2.5 ML NEB SOLUTION NEB SCH ×2 (22:18→22:33)
[2019-10-15] MEDS: IPRATROPIUM BROMIDE 0.5 MG/2.5 ML NEB SOLUTION NEB SCH ×6 (02:35→23:32)
[2019-10-15 04:20] VITALS: BP 104/70
[2019-10-15] MEDS: INSULIN LISPRO 100 UNITS/ML SQ PRN ×4 (05:51→20:33)
[2019-10-15 06:39] LABS: GLUCOMETER DEV NAME(LOC) 5N.2; GLUCOSE,POINT OF CARE 220 MG/DL (70-110)
[2019-10-15 06:40] LABS: GLUCOMETER DEV NAME(LOC) 5N.2; GLUCOSE,POINT OF CARE 158 MG/DL (70-110)
[2019-10-15 07:30] VITALS: BP 134/56
[2019-10-15] MEDS ORDERED: CALCIUM ACETATE 667 MG CAPSULE PO SCH (08:00)
[2019-10-15 08:02] LABS: BASOPHILS % (AUTO) 0.4 % (0.0-2.0); EOSINOPHILS % (AUTO) 2.9 % (1.0-6.0); HEMATOCRIT 22.3 % (41-53); HEMOGLOBIN 7.6 g/dL (13.5-17.5); LYMPHOCYTES # (AUTO) 0.8 K/uL (1.0-4.8); LYMPHOCYTES % (AUTO) 6.4 % (22.0-44.0); MEAN CORPUSCULAR HEMOGLOBIN 31.6 pg (26.0-34.0); MEAN CORPUSCULAR HGB CONC 33.8 G/dL (31.0-37.0); MEAN CORPUSCULAR VOLUME 93 fL (80-100); MONOCYTES # (AUTO) 1.2 K/uL (0.1-1.0); MONOCYTES % (AUTO) 9.7 % (2.0-9.0); NEUTROPHILS # (AUTO) 9.6 K/uL (1.8-7.7); NEUTROPHILS % (AUTO) 80.6 % (40.0-70.0); PLATELET COUNT (AUTO) 258 K/uL (150-450); RED BLOOD CELL COUNT(AUTO) 2.39 MIL/uL (4.50-5.90); RED CELL DISTRIBUTION WIDTH 16.7 % (11.5-14.5)
[2019-10-15 08:17] LABS: CREATININE 8.62 mg/dL (0.60-1.30); POTASSIUM 3.7 mmol/L (3.5-5.1)
[2019-10-15 08:18] LABS: ALBUMIN 2.5 g/dL (3.4-5.0); BILIRUBIN,TOTAL 0.4 mg/dL (0.1-1.0); CALCIUM, TOTAL 8.1 mg/dL (8.8-10.5); TOTAL PROTEIN, SERUM 7.8 g/dL (6.4-8.2)
[2019-10-15] MEDS: PREGABALIN 50 MG CAPSULE PO SCH ×3 (08:59→20:34)
[2019-10-15] MEDS: CALCIUM ACETATE 667 MG CAPSULE PO SCH ×3 (08:59→17:32)
[2019-10-15 11:41] VITALS: BP 153/64
[2019-10-15 13:29] LABS: GLUCOMETER DEV NAME(LOC) 5N.2; GLUCOSE,POINT OF CARE 165 MG/DL (70-110)
[2019-10-15] MEDS: ACETAMINOPHEN 325 MG TABLET PO PRN (15:55)
[2019-10-15] MEDS: TraMADol HCL 50 MG TABLET PO PRN (15:56)
[2019-10-15 16:39] VITALS: BP 151/64
[2019-10-15] MEDS: VITAMIN B COMP/VIT C/FOLIC ACID CAPSULE PO SCH (16:56)
[2019-10-15 20:27] VITALS: BP 184/79
[2019-10-15] MEDS: CARVEDILOL 12.5 MG TABLET PO SCH (20:34)
[2019-10-15] MEDS: RAMIPRIL 2.5 MG CAPSULE PO SCH (20:34)
[2019-10-15] MEDS: ATORVASTATIN CALCIUM 20 MG TABLET PO SCH (20:34)
[2019-10-15] MEDS: FAMOTIDINE 20 MG TABLET PO SCH (20:35)
[2019-10-15 21:01] LABS: GLUCOMETER DEV NAME(LOC) 5N.2; GLUCOSE,POINT OF CARE 162 MG/DL (70-110)
[2019-10-15 21:01] LABS: GLUCOMETER DEV NAME(LOC) 5S.1; GLUCOSE,POINT OF CARE 170 MG/DL (70-110)
[2019-10-15 21:28] VITALS: BP 125/62
[2019-10-16 00:07] VITALS: BP 138/65
[2019-10-16] MEDS: IPRATROPIUM BROMIDE 0.5 MG/2.5 ML NEB SOLUTION NEB SCH ×6 (02:41→23:13)
[2019-10-16 03:58] VITALS: BP 143/60
[2019-10-16] MEDS: INSULIN LISPRO 100 UNITS/ML SQ PRN ×4 (05:54→20:50)
[2019-10-16 06:27] LABS: GLUCOMETER DEV NAME(LOC) 5S.2A; GLUCOSE,POINT OF CARE 143 MG/DL (70-110)
[2019-10-16 07:30] LABS: BASOPHILS % (AUTO) 0.3 % (0.0-2.0); EOSINOPHILS % (AUTO) 2.9 % (1.0-6.0); HEMATOCRIT 23.9 % (41-53); HEMOGLOBIN 7.8 g/dL (13.5-17.5); LYMPHOCYTES # (AUTO) 0.7 K/uL (1.0-4.8); LYMPHOCYTES % (AUTO) 5.2 % (22.0-44.0); MEAN CORPUSCULAR HEMOGLOBIN 30.5 pg (26.0-34.0); MEAN CORPUSCULAR HGB CONC 32.4 G/dL (31.0-37.0); MEAN CORPUSCULAR VOLUME 94 fL (80-100); MONOCYTES # (AUTO) 1.2 K/uL (0.1-1.0); MONOCYTES % (AUTO) 8.9 % (2.0-9.0); NEUTROPHILS % (AUTO) 82.7 % (40.0-70.0); PLATELET COUNT (AUTO) 277 K/uL (150-450); RED BLOOD CELL COUNT(AUTO) 2.54 MIL/uL (4.50-5.90); RED CELL DISTRIBUTION WIDTH 17.1 % (11.5-14.5)
[2019-10-16 07:37] LABS: POTASSIUM 4.8 mmol/L (3.5-5.1)
[2019-10-16 07:38] LABS: CALCIUM, TOTAL 8.8 mg/dL (8.8-10.5); CREATININE 11.36 mg/dL (0.60-1.30); MAGNESIUM 2.2 mg/dL (1.80-2.40); PHOSPHORUS 4.7 mg/dL (2.5-4.9)
[2019-10-16 07:57] LABS: % IRON SATURATION 16.7 % (30-44)
[2019-10-16] MEDS: CLOPIDOGREL BISULFATE 75 MG TABLET PO SCH (08:30)
[2019-10-16 08:48] VITALS: BP 150/79
[2019-10-16] MEDS: RAMIPRIL 2.5 MG CAPSULE PO SCH ×2 (09:00→20:50)
[2019-10-16] MEDS: CALCIUM ACETATE 667 MG CAPSULE PO SCH ×3 (09:06→17:49)
[2019-10-16] MEDS: VITAMIN B COMP/VIT C/FOLIC ACID CAPSULE PO SCH (09:07)
[2019-10-16] MEDS: PREGABALIN 50 MG CAPSULE PO SCH ×3 (09:07→20:40)
[2019-10-16] MEDS: EPOETIN ALFA 10,000 UNITS/ML VIAL SQ SCH (09:16)
[2019-10-16 12:05] VITALS: BP 153/71
[2019-10-16] MEDS ORDERED: LORazepam 2 MG/ML VIAL IVP ONE (14:30)
[2019-10-16 17:02] VITALS: BP 144/67
[2019-10-16 17:38] LABS: GLUCOMETER DEV NAME(LOC) 5N.2; GLUCOSE,POINT OF CARE 156 MG/DL (70-110)
[2019-10-16 17:38] LABS: GLUCOMETER DEV NAME(LOC) 5N.2; GLUCOSE,POINT OF CARE 189 MG/DL (70-110)
[2019-10-16] MEDS: AmLODIPine BESYLATE 5 MG TABLET PO SCH (17:49)
[2019-10-16] MEDS: SOD FERRIC GLUC COMPLX/SUCROSE 125 MG in SODIUM CHLORIDE 0.9% 100 ML IV SCH (18:20)
[2019-10-16 20:03] VITALS: BP 145/66
[2019-10-16] MEDS: CARVEDILOL 12.5 MG TABLET PO SCH (20:40)
[2019-10-16] MEDS: FAMOTIDINE 20 MG TABLET PO SCH (20:40)
[2019-10-16] MEDS: ATORVASTATIN CALCIUM 20 MG TABLET PO SCH (20:40)
[2019-10-16] MEDS ORDERED: LEVOFLOXACIN 250 MG TABLET PO ONE (22:00)
[2019-10-17] VITALS (7 sets, daily range): BP systolic 102–159; BP diastolic 56–77
[2019-10-17 00:02] LABS: GLUCOMETER DEV NAME(LOC) 5N.2; GLUCOSE,POINT OF CARE 220 MG/DL (70-110)
[2019-10-17] MEDS: IPRATROPIUM BROMIDE 0.5 MG/2.5 ML NEB SOLUTION NEB SCH ×6 (02:52→23:50)
[2019-10-17] MEDS: PREGABALIN 50 MG CAPSULE PO SCH ×3 (08:55→20:41)
[2019-10-17] MEDS: CLOPIDOGREL BISULFATE 75 MG TABLET PO SCH (08:55)
[2019-10-17] MEDS: RAMIPRIL 2.5 MG CAPSULE PO SCH ×2 (08:55→20:42)
[2019-10-17] MEDS: AmLODIPine BESYLATE 5 MG TABLET PO SCH (08:55)
[2019-10-17] MEDS: CALCIUM ACETATE 667 MG CAPSULE PO SCH ×3 (09:06→17:54)
[2019-10-17] MEDS: VITAMIN B COMP/VIT C/FOLIC ACID CAPSULE PO SCH (09:06)
[2019-10-17] MEDS: INSULIN LISPRO 100 UNITS/ML SQ PRN ×2 (12:15→20:43)
[2019-10-17 12:30] LABS: BASOPHILS % (AUTO) 0.4 % (0.0-2.0); EOSINOPHILS % (AUTO) 2.7 % (1.0-6.0); HEMATOCRIT 22.4 % (41-53); HEMOGLOBIN 7.4 g/dL (13.5-17.5); LYMPHOCYTES # (AUTO) 0.7 K/uL (1.0-4.8); LYMPHOCYTES % (AUTO) 6.6 % (22.0-44.0); MEAN CORPUSCULAR HEMOGLOBIN 31.4 pg (26.0-34.0); MEAN CORPUSCULAR VOLUME 95 fL (80-100); MONOCYTES % (AUTO) 9.1 % (2.0-9.0); NEUTROPHILS # (AUTO) 9.2 K/uL (1.8-7.7); NEUTROPHILS % (AUTO) 81.2 % (40.0-70.0); PLATELET COUNT (AUTO) 279 K/uL (150-450); RED BLOOD CELL COUNT(AUTO) 2.35 MIL/uL (4.50-5.90); RED CELL DISTRIBUTION WIDTH 17.2 % (11.5-14.5)
[2019-10-17 12:41] LABS: CREATININE 7.78 mg/dL (0.60-1.30); MAGNESIUM 1.8 mg/dL (1.80-2.40); PHOSPHORUS 3.1 mg/dL (2.5-4.9); POTASSIUM 5.3 mmol/L (3.5-5.1)
[2019-10-17] MEDS: SOD FERRIC GLUC COMPLX/SUCROSE 125 MG in SODIUM CHLORIDE 0.9% 100 ML IV SCH (16:29)
[2019-10-17 18:11] LABS: GLUCOMETER DEV NAME(LOC) 5S.1; GLUCOSE,POINT OF CARE 137 MG/DL (70-110)
[2019-10-17] MEDS ORDERED: 0.9% SODIUM CHLORIDE 5 ML NEB SOLUTION NEB ONE (19:24)
[2019-10-17] MEDS: FAMOTIDINE 20 MG TABLET PO SCH (20:41)
[2019-10-17] MEDS: ATORVASTATIN CALCIUM 20 MG TABLET PO SCH (20:41)
[2019-10-17] MEDS: CARVEDILOL 12.5 MG TABLET PO SCH (20:41)
[2019-10-17] MEDS: TraMADol HCL 50 MG TABLET PO PRN (20:41)
[2019-10-18 01:30] LABS: GLUCOMETER DEV NAME(LOC) 5N.2; GLUCOSE,POINT OF CARE 234 MG/DL (70-110)
[2019-10-18 01:30] LABS: GLUCOMETER DEV NAME(LOC) 5N.2; GLUCOSE,POINT OF CARE 196 MG/DL (70-110)
[2019-10-18 01:30] LABS: GLUCOMETER DEV NAME(LOC) 5N.2; GLUCOSE,POINT OF CARE 129 MG/DL (70-110)
[2019-10-18] MEDS: IPRATROPIUM BROMIDE 0.5 MG/2.5 ML NEB SOLUTION NEB SCH ×6 (02:24→23:15)
[2019-10-18 05:11] VITALS: BP 141/78
[2019-10-18] MEDS: INSULIN LISPRO 100 UNITS/ML SQ PRN ×3 (06:06→21:30)
[2019-10-18 07:42] VITALS: BP 141/66
[2019-10-18] MEDS ORDERED: LEVOFLOXACIN 500 MG TABLET PO SCH (09:00)
[2019-10-18] MEDS: CALCIUM ACETATE 667 MG CAPSULE PO SCH ×3 (09:02→17:34)
[2019-10-18] MEDS: VITAMIN B COMP/VIT C/FOLIC ACID CAPSULE PO SCH (09:02)
[2019-10-18] MEDS: RAMIPRIL 2.5 MG CAPSULE PO SCH ×2 (09:02→21:12)
[2019-10-18] MEDS: CLOPIDOGREL BISULFATE 75 MG TABLET PO SCH (09:03)
[2019-10-18] MEDS: PREGABALIN 50 MG CAPSULE PO SCH ×3 (09:03→21:12)
[2019-10-18] MEDS: AmLODIPine BESYLATE 5 MG TABLET PO SCH (09:03)
[2019-10-18 10:46] LABS: GLUCOMETER DEV NAME(LOC) 5N.2; GLUCOSE,POINT OF CARE 145 MG/DL (70-110)
[2019-10-18 11:40] VITALS: BP 132/66
[2019-10-18 12:28] LABS: BASOPHILS % (AUTO) 0.3 % (0.0-2.0); EOSINOPHILS % (AUTO) 3.4 % (1.0-6.0); HEMATOCRIT 21.9 % (41-53); HEMOGLOBIN 7.3 g/dL (13.5-17.5); LYMPHOCYTES # (AUTO) 0.7 K/uL (1.0-4.8); LYMPHOCYTES % (AUTO) 6.2 % (22.0-44.0); MEAN CORPUSCULAR HGB CONC 33.6 G/dL (31.0-37.0); MEAN CORPUSCULAR VOLUME 95 fL (80-100); MONOCYTES # (AUTO) 0.7 K/uL (0.1-1.0); MONOCYTES % (AUTO) 6.7 % (2.0-9.0); NEUTROPHILS # (AUTO) 9.2 K/uL (1.8-7.7); NEUTROPHILS % (AUTO) 83.4 % (40.0-70.0); PLATELET COUNT (AUTO) 259 K/uL (150-450); RED CELL DISTRIBUTION WIDTH 17.6 % (11.5-14.5)
[2019-10-18 15:36] VITALS: BP 140/74
[2019-10-18] MEDS ORDERED: PIPERACILLIN SODIUM/TAZOBACTAM 0.75 GM in DEXTROSE 5%-WATER 50 ML IV PRN (15:45)
[2019-10-18] MEDS: SOD FERRIC GLUC COMPLX/SUCROSE 125 MG in SODIUM CHLORIDE 0.9% 100 ML IV SCH (16:19)
[2019-10-18] MEDS: PIPERACILLIN SODIUM/TAZOBACTAM 2.25 GM in DEXTROSE 5%-WATER 50 ML IV SCH (17:35)
[2019-10-18 18:15] LABS: GLUCOMETER DEV NAME(LOC) 5S.1; GLUCOSE,POINT OF CARE 235 MG/DL (70-110)
[2019-10-18 19:55] VITALS: BP 136/69
[2019-10-18 20:39] LABS: GLUCOMETER DEV NAME(LOC) 5N.2; GLUCOSE,POINT OF CARE 140 MG/DL (70-110)
[2019-10-18] MEDS: FAMOTIDINE 20 MG TABLET PO SCH (21:12)
[2019-10-18] MEDS: ATORVASTATIN CALCIUM 20 MG TABLET PO SCH (21:12)
[2019-10-18] MEDS: CARVEDILOL 12.5 MG TABLET PO SCH (21:12)
[2019-10-18 23:54] VITALS: BP 124/51
[2019-10-19] MEDS: PIPERACILLIN SODIUM/TAZOBACTAM 2.25 GM in DEXTROSE 5%-WATER 50 ML IV SCH ×4 (00:43→22:59)
[2019-10-19 01:01] LABS: GLUCOMETER DEV NAME(LOC) 5N.1; GLUCOSE,POINT OF CARE 174 MG/DL (70-110)
[2019-10-19] MEDS: IPRATROPIUM BROMIDE 0.5 MG/2.5 ML NEB SOLUTION NEB SCH ×5 (02:54→22:58)
[2019-10-19 05:02] VITALS: BP 151/74
[2019-10-19] MEDS: INSULIN LISPRO 100 UNITS/ML SQ PRN ×3 (06:04→22:02)
[2019-10-19 08:03] VITALS: BP 136/68
[2019-10-19] MEDS: PREGABALIN 50 MG CAPSULE PO SCH ×2 (08:28→21:00)
[2019-10-19] MEDS: CALCIUM ACETATE 667 MG CAPSULE PO SCH ×3 (08:30→19:03)
[2019-10-19] MEDS: EPOETIN ALFA 10,000 UNITS/ML VIAL SQ SCH ×2 (08:39→18:40)
[2019-10-19 10:24] LABS: BASOPHILS % (AUTO) 0.3 % (0.0-2.0); EOSINOPHILS % (AUTO) 2.2 % (1.0-6.0); HEMATOCRIT 21.8 % (41-53); HEMOGLOBIN 7.2 g/dL (13.5-17.5); LYMPHOCYTES # (AUTO) 0.6 K/uL (1.0-4.8); LYMPHOCYTES % (AUTO) 5.1 % (22.0-44.0); MEAN CORPUSCULAR HEMOGLOBIN 31.3 pg (26.0-34.0); MEAN CORPUSCULAR HGB CONC 32.9 G/dL (31.0-37.0); MEAN CORPUSCULAR VOLUME 95 fL (80-100); MONOCYTES # (AUTO) 0.8 K/uL (0.1-1.0); MONOCYTES % (AUTO) 6.9 % (2.0-9.0); NEUTROPHILS # (AUTO) 10.3 K/uL (1.8-7.7); PLATELET COUNT (AUTO) 261 K/uL (150-450); RED BLOOD CELL COUNT(AUTO) 2.29 MIL/uL (4.50-5.90); RED CELL DISTRIBUTION WIDTH 16.9 % (11.5-14.5)
[2019-10-19 10:25] LABS: NEUTROPHILS % (AUTO) 85.5 % (40.0-70.0)
[2019-10-19 10:42] LABS: CREATININE 12.32 mg/dL (0.60-1.30)
[2019-10-19 10:49] LABS: POTASSIUM 6.9 mmol/L (3.5-5.1)
[2019-10-19 11:00] VITALS: BP 108/81
[2019-10-19] MEDS ORDERED: IOVERSOL 350 MG/ML 100 ML VIAL ONE (11:52)
[2019-10-19] MEDS ORDERED: SODIUM CHLORIDE 0.9% 100 ML ONE (11:52)
[2019-10-19] MEDS: CLOPIDOGREL BISULFATE 75 MG TABLET PO SCH (15:02)
[2019-10-19] MEDS: SOD FERRIC GLUC COMPLX/SUCROSE 125 MG in SODIUM CHLORIDE 0.9% 100 ML IV SCH (15:08)
[2019-10-19 15:22] VITALS: BP 148/97
[2019-10-19] MEDS: ACETAMINOPHEN 325 MG TABLET PO PRN (16:47)
[2019-10-19] MEDS: TraMADol HCL 50 MG TABLET PO PRN (16:47)
[2019-10-19 20:18] LABS: CREATININE 3.29 mg/dL (0.60-1.30); POTASSIUM 3.4 mmol/L (3.5-5.1)
[2019-10-19 20:21] VITALS: BP 116/54
[2019-10-19] MEDS: RAMIPRIL 2.5 MG CAPSULE PO SCH (21:00)
[2019-10-19] MEDS: CARVEDILOL 12.5 MG TABLET PO SCH (21:09)
[2019-10-19] MEDS: ATORVASTATIN CALCIUM 20 MG TABLET PO SCH (21:09)
[2019-10-19] MEDS: FAMOTIDINE 20 MG TABLET PO SCH (21:09)
[2019-10-19 21:15] LABS: GLUCOMETER DEV NAME(LOC) 5S.2A; GLUCOSE,POINT OF CARE 163 MG/DL (70-110)
[2019-10-19] MEDS ORDERED: SODIUM CHLORIDE 0.9% 250 ML IV ONE (23:02)
[2019-10-20] VITALS (15 sets, daily range): BP systolic 104–146; BP diastolic 39–98
[2019-10-20] MEDS: PREGABALIN 50 MG CAPSULE PO SCH ×4 (01:01→20:16)
[2019-10-20] MEDS: IPRATROPIUM BROMIDE 0.5 MG/2.5 ML NEB SOLUTION NEB SCH ×6 (03:01→23:51)
[2019-10-20 04:22] LABS: GLUCOMETER DEV NAME(LOC) 5S.1; GLUCOSE,POINT OF CARE 172 MG/DL (70-110)
[2019-10-20 04:22] LABS: GLUCOMETER DEV NAME(LOC) 5S.1; GLUCOSE,POINT OF CARE 125 MG/DL (70-110)
[2019-10-20 04:22] LABS: GLUCOMETER DEV NAME(LOC) 5S.1; GLUCOSE,POINT OF CARE 266 MG/DL (70-110)
[2019-10-20 04:22] LABS: GLUCOMETER DEV NAME(LOC) 5N.2; GLUCOSE,POINT OF CARE 163 MG/DL (70-110)
[2019-10-20 06:20] LABS: GLUCOMETER DEV NAME(LOC) 5N.2; GLUCOSE,POINT OF CARE 109 MG/DL (70-110)
[2019-10-20 07:10] LABS: C-REACTIVE PROTEIN QUANT 6.92 mg/dL (0.00-0.30); CALCIUM, TOTAL 9.2 mg/dL (8.8-10.5); CREATININE 6.68 mg/dL (0.60-1.30); MAGNESIUM 1.6 mg/dL (1.80-2.40); PHOSPHORUS 3.4 mg/dL (2.5-4.9); POTASSIUM 5.2 mmol/L (3.5-5.1)
[2019-10-20 07:14] LABS: BASOPHILS % (AUTO) 0.3 % (0.0-2.0); EOSINOPHILS % (AUTO) 2.4 % (1.0-6.0); LYMPHOCYTES # (AUTO) 0.7 K/uL (1.0-4.8); LYMPHOCYTES % (AUTO) 7.8 % (22.0-44.0); MEAN CORPUSCULAR HEMOGLOBIN 31.6 pg (26.0-34.0); MEAN CORPUSCULAR HGB CONC 33.3 G/dL (31.0-37.0); MEAN CORPUSCULAR VOLUME 95 fL (80-100); MONOCYTES # (AUTO) 0.9 K/uL (0.1-1.0); MONOCYTES % (AUTO) 9.2 % (2.0-9.0); NEUTROPHILS # (AUTO) 7.7 K/uL (1.8-7.7); NEUTROPHILS % (AUTO) 80.3 % (40.0-70.0); PLATELET COUNT (AUTO) 254 K/uL (150-450); RED BLOOD CELL COUNT(AUTO) 2.08 MIL/uL (4.50-5.90); RED CELL DISTRIBUTION WIDTH 17.6 % (11.5-14.5)
[2019-10-20 07:19] LABS: HEMATOCRIT 19.8 % (41-53); HEMOGLOBIN 6.6 g/dL (13.5-17.5)
[2019-10-20] MEDS: PIPERACILLIN SODIUM/TAZOBACTAM 2.25 GM in DEXTROSE 5%-WATER 50 ML IV SCH ×2 (08:00→17:21)
[2019-10-20] MEDS: CLOPIDOGREL BISULFATE 75 MG TABLET PO SCH (08:30)
[2019-10-20] MEDS: VITAMIN B COMP/VIT C/FOLIC ACID CAPSULE PO SCH ×3 (09:46→10:00)
[2019-10-20] MEDS: AmLODIPine BESYLATE 5 MG TABLET PO SCH ×2 (09:46→10:00)
[2019-10-20] MEDS: CALCIUM ACETATE 667 MG CAPSULE PO SCH ×3 (09:46→17:22)
[2019-10-20] MEDS: ACETAMINOPHEN 325 MG TABLET PO PRN ×2 (09:46→17:22)
[2019-10-20] MEDS: RAMIPRIL 2.5 MG CAPSULE PO SCH ×2 (09:47→20:15)
[2019-10-20] MEDS: TraMADol HCL 50 MG TABLET PO PRN ×2 (09:47→17:23)
[2019-10-20] MEDS: INSULIN LISPRO 100 UNITS/ML SQ PRN ×2 (12:09→17:34)
[2019-10-20] MEDS: SOD FERRIC GLUC COMPLX/SUCROSE 125 MG in SODIUM CHLORIDE 0.9% 100 ML IV SCH (18:45)
[2019-10-20 19:48] LABS: GLUCOMETER DEV NAME(LOC) 5S.1; GLUCOSE,POINT OF CARE 156 MG/DL (70-110)
[2019-10-20 19:48] LABS: GLUCOMETER DEV NAME(LOC) 5S.1; GLUCOSE,POINT OF CARE 152 MG/DL (70-110)
[2019-10-20] MEDS: ATORVASTATIN CALCIUM 20 MG TABLET PO SCH (20:15)
[2019-10-20] MEDS: CARVEDILOL 12.5 MG TABLET PO SCH (20:15)
[2019-10-20] MEDS: FAMOTIDINE 20 MG TABLET PO SCH (20:16)
[2019-10-20 20:31] LABS: BASOPHILS % (AUTO) 0.3 % (0.0-2.0); HEMATOCRIT 26.1 % (41-53); LYMPHOCYTES # (AUTO) 0.8 K/uL (1.0-4.8); LYMPHOCYTES % (AUTO) 7.3 % (22.0-44.0); MEAN CORPUSCULAR HGB CONC 34.6 G/dL (31.0-37.0); MEAN CORPUSCULAR VOLUME 93 fL (80-100); MONOCYTES % (AUTO) 8.8 % (2.0-9.0); NEUTROPHILS # (AUTO) 8.8 K/uL (1.8-7.7); NEUTROPHILS % (AUTO) 81.6 % (40.0-70.0); PLATELET COUNT (AUTO) 254 K/uL (150-450); RED BLOOD CELL COUNT(AUTO) 2.82 MIL/uL (4.50-5.90); RED CELL DISTRIBUTION WIDTH 18.5 % (11.5-14.5)
[2019-10-21] MEDS: PIPERACILLIN SODIUM/TAZOBACTAM 2.25 GM in DEXTROSE 5%-WATER 50 ML IV SCH ×3 (01:18→15:48)
[2019-10-21] MEDS: IPRATROPIUM BROMIDE 0.5 MG/2.5 ML NEB SOLUTION NEB SCH ×4 (03:11→15:15)
[2019-10-21 03:13] VITALS: BP 134/71
[2019-10-21 05:59] LABS: GLUCOMETER DEV NAME(LOC) 5N.2; GLUCOSE,POINT OF CARE 133 MG/DL (70-110)
[2019-10-21] MEDS ORDERED: SODIUM CHLORIDE 0.9% 2,000 ML ONE (07:00)
[2019-10-21 07:35] LABS: BASOPHILS % (AUTO) 0.3 % (0.0-2.0); EOSINOPHILS % (AUTO) 1.6 % (1.0-6.0); HEMATOCRIT 23.2 % (41-53); LYMPHOCYTES # (AUTO) 0.7 K/uL (1.0-4.8); LYMPHOCYTES % (AUTO) 6.3 % (22.0-44.0); MEAN CORPUSCULAR HEMOGLOBIN 32.3 pg (26.0-34.0); MEAN CORPUSCULAR HGB CONC 34.7 G/dL (31.0-37.0); MEAN CORPUSCULAR VOLUME 93 fL (80-100); MONOCYTES % (AUTO) 8.4 % (2.0-9.0); NEUTROPHILS # (AUTO) 9.5 K/uL (1.8-7.7); NEUTROPHILS % (AUTO) 83.4 % (40.0-70.0); PLATELET COUNT (AUTO) 243 K/uL (150-450); RED BLOOD CELL COUNT(AUTO) 2.49 MIL/uL (4.50-5.90); RED CELL DISTRIBUTION WIDTH 18.4 % (11.5-14.5)
[2019-10-21 07:47] VITALS: BP 160/47
[2019-10-21 07:55] LABS: CALCIUM, TOTAL 8.9 mg/dL (8.8-10.5); CREATININE 9.37 mg/dL (0.60-1.30); MAGNESIUM 1.6 mg/dL (1.80-2.40); PHOSPHORUS 3.7 mg/dL (2.5-4.9)
[2019-10-21] MEDS: CALCIUM ACETATE 667 MG CAPSULE PO SCH ×3 (08:00→18:36)
[2019-10-21 08:15] LABS: INR 1.2 (0.9-1.1); PROTHROMBIN TIME 11.9 SEC (9.4-11.6)
[2019-10-21 08:16] LABS: POTASSIUM 6.4 mmol/L (3.5-5.1)
[2019-10-21] MEDS: CLOPIDOGREL BISULFATE 75 MG TABLET PO SCH (08:30)
[2019-10-21] MEDS: PREGABALIN 50 MG CAPSULE PO SCH ×2 (09:00→18:36)
[2019-10-21] MEDS: VITAMIN B COMP/VIT C/FOLIC ACID CAPSULE PO SCH (09:00)
[2019-10-21] MEDS: AmLODIPine BESYLATE 5 MG TABLET PO SCH (09:00)
[2019-10-21] MEDS: RAMIPRIL 2.5 MG CAPSULE PO SCH (09:00)
[2019-10-21] MEDS ORDERED: LIDOCAINE/PF 1% 30 ML VIAL ONE (10:24)
[2019-10-21] MEDS ORDERED: BUPIVACAINE HCL/PF 0.5% 30 ML VIAL ONE (10:24)
[2019-10-21] MEDS ORDERED: BACITRACIN 50,000 UNITS/VIAL ONE ×2 (10:25→13:16)
[2019-10-21 11:21] VITALS: BP 159/63
[2019-10-21 11:32] LABS: GLUCOMETER DEV NAME(LOC) 5S.1; GLUCOSE,POINT OF CARE 113 MG/DL (70-110)
[2019-10-21 12:03] LABS: GLUCOMETER DEV NAME(LOC) 5S.1; GLUCOSE,POINT OF CARE 105 MG/DL (70-110)
[2019-10-21] MEDS ORDERED: SODIUM CHLORIDE 0.9% 1,000 ML IV ONE (12:30)
[2019-10-21] MEDS ORDERED: SODIUM CL IRRIG SOLN BAG 3,000 ML IRRIG ONE (13:05)
[2019-10-21] MEDS ORDERED: FentaNYL CITRATE-PF 100 MCG/2 ML VIAL IVP PRN (13:30)
[2019-10-21] MEDS ORDERED: HYDROmorphone 2 MG/ML SYRINGE IVP PRN (13:30)
[2019-10-21] MEDS ORDERED: HYDROmorphone 2 MG/ML SYRINGE ONE (14:40)
[2019-10-21] MEDS: EPOETIN ALFA 10,000 UNITS/ML VIAL SQ SCH (15:23)
[2019-10-21 15:28] VITALS: BP 95/55
[2019-10-21] MEDS ORDERED: AMLO5TAB9 PO (17:31)
[2019-10-21] MEDS ORDERED: PIPE2.259 IV (17:32)
[2019-10-21] MEDS ORDERED: B CO1CAP6 PO (17:34)
[2019-10-21 17:52] LABS: GLUCOMETER DEV NAME(LOC) 5N.2; GLUCOSE,POINT OF CARE 104 MG/DL (70-110)
[2019-10-21] MEDS: TraMADol HCL 50 MG TABLET PO PRN (18:36)
[2019-10-21] MEDS: SOD FERRIC GLUC COMPLX/SUCROSE 125 MG in SODIUM CHLORIDE 0.9% 100 ML IV SCH (18:39)
[2019-10-21] MEDS ORDERED: FentaNYL CITRATE-PF 100 MCG/2 ML VIAL IVP ONE (19:14)
[2019-10-21] MEDS ORDERED: MIDAZOLAM HCL 2 MG/2 ML VIAL IVP ONE (19:14)
[2019-10-21] MEDS ORDERED: PROPOFOL 1% 20 ML VIAL IVP ONE (19:14)
[2019-10-21] MEDS ORDERED: OXYGEN THERAPY IH SCH (20:00)
== END 2019-10-21 19:15 | DRG 239 ==
LOC: EMS 08:35 → 5N 17:26
PROVIDERS: ADMIT Internal Medicine; ATTEND Internal Medicine
PROC: 30233N1 Transfusion of Nonautologous Red Blood Cells into Peripheral Vein, Percutaneous Approach (ICD-10-PCS; principal; 2019-10-14)
PROC: 5A1D70Z Performance of Urinary Filtration, Intermittent, Less than 6 Hours Per Day (ICD-10-PCS; 2019-10-16)
PROC: 5A1D70Z Performance of Urinary Filtration, Intermittent, Less than 6 Hours Per Day (ICD-10-PCS; 2019-10-19)
PROC: 0Y6M0Z9 Detachment at Right Foot, Partial 1st Ray, Open Approach (ICD-10-PCS; 2019-10-21)
PROC: 0Y6M0ZB Detachment at Right Foot, Partial 2nd Ray, Open Approach (ICD-10-PCS; 2019-10-21)
PROC: 0Y6M0ZC Detachment at Right Foot, Partial 3rd Ray, Open Approach (ICD-10-PCS; 2019-10-21)
PROC: 0Y6M0ZD Detachment at Right Foot, Partial 4th Ray, Open Approach (ICD-10-PCS; 2019-10-21)
PROC: 0Y6M0ZF Detachment at Right Foot, Partial 5th Ray, Open Approach (ICD-10-PCS; 2019-10-21)
PROC: 5A1D70Z Performance of Urinary Filtration, Intermittent, Less than 6 Hours Per Day (ICD-10-PCS; 2019-10-21)
DX: E11.52 Type 2 diabetes mellitus with diabetic peripheral angiopathy with gangrene (principal); N18.6 End stage renal disease; A48.0 Gas gangrene; I13.2 Hypertensive heart and chronic kidney disease with heart failure and with stage 5 chronic kidney disease, or end stage renal disease; I50.32 Chronic diastolic (congestive) heart failure; D64.9 Anemia, unspecified; E11.22 Type 2 diabetes mellitus with diabetic chronic kidney disease; D50.0 Iron deficiency anemia secondary to blood loss (chronic); E78.5 Hyperlipidemia, unspecified; E87.5 Hyperkalemia; I25.10 Atherosclerotic heart disease of native coronary artery without angina pectoris; E11.40 Type 2 diabetes mellitus with diabetic neuropathy, unspecified; I99.8 Other disorder of circulatory system; Z99.2 Dependence on renal dialysis; Z79.4 Long term (current) use of insulin; Z79.899 Other long term (current) drug therapy; Z86.73 Personal history of transient ischemic attack (TIA), and cerebral infarction without residual deficits; Z87.891 Personal history of nicotine dependence; Z91.19 Patient's noncompliance with other medical treatment and regimen; Z90.49 Acquired absence of other specified parts of digestive tract
CPT/HCPCS: 36430; 36569; 73701; 73718; 83540; 83550; 83735; 84100; 84295; 86140; 86850; 86900; 86901; 86920; 87070; 87081; 87205; 87340; 93005; 94640; 94761; J0885; J1170; J2250; J2543; J2704; J2916; J3010; J3490; J7030; J7040; J7050; J7060; P9016

== ENCOUNTER 2019-10-30 08:47 | Emergency (ER) | payer MEDICARE, MEDICAID ==
[~2019-10-30] VITALS: Ht 165.1 cm; Wt 75.7 kg
[~2019-10-30 08:47] MED LIST changes: +AMLO5TAB9 PO; -AMOX1TAB15 PO; -AUD NEB; +B CO1CAP6 PO; +IPRA3AMP24 IH; -IPRNEB IH; -LEVO-72 PO; +PIPE2.259 IV
[2019-10-30 10:15] VITALS: BP 119/92
[2019-10-30] MEDS ORDERED: SODIUM CHLORIDE 0.9% 250 ML IV ONE (10:30)
[2019-10-30 10:39] LABS: BASOPHILS % (AUTO) 1.2 % (0.0-2.0); EOSINOPHILS % (AUTO) 3.4 % (1.0-6.0); HEMATOCRIT 30.8 % (41-53); HEMOGLOBIN 10.5 g/dL (13.5-17.5); LYMPHOCYTES # (AUTO) 0.5 K/uL (1.0-4.8); LYMPHOCYTES % (AUTO) 4.3 % (22.0-44.0); MEAN CORPUSCULAR HEMOGLOBIN 31.7 pg (26.0-34.0); MEAN CORPUSCULAR VOLUME 93 fL (80-100); MONOCYTES # (AUTO) 0.7 K/uL (0.1-1.0); MONOCYTES % (AUTO) 5.4 % (2.0-9.0); NEUTROPHILS # (AUTO) 10.7 K/uL (1.8-7.7); PLATELET COUNT (AUTO) 370 K/uL (150-450); RED BLOOD CELL COUNT(AUTO) 3.31 MIL/uL (4.50-5.90); RED CELL DISTRIBUTION WIDTH 17.6 % (11.5-14.5)
[2019-10-30 10:40] LABS: NEUTROPHILS % (AUTO) 85.7 % (40.0-70.0)
[2019-10-30 10:51] LABS: CALCIUM, TOTAL 9.5 mg/dL (8.8-10.5); CREATININE 5.15 mg/dL (0.60-1.30); POTASSIUM 3.1 mmol/L (3.5-5.1)
[2019-10-30 10:55] LABS: INR 1.1 (0.9-1.1)
[2019-10-30 10:56] LABS: ALBUMIN 2.7 g/dL (3.4-5.0); BILIRUBIN,TOTAL 0.6 mg/dL (0.1-1.0); TOTAL PROTEIN, SERUM 9.3 g/dL (6.4-8.2)
[2019-10-30 10:59] LABS: LACTIC ACID 1.7 mmol/L (0.4-2.0)
== END 2019-10-30 11:20 | disposition left against medical advice (07) ==
LOC: EMS 08:51
DX: I13.2 Hypertensive heart and chronic kidney disease with heart failure and with stage 5 chronic kidney disease, or end stage renal disease (principal); E11.22 Type 2 diabetes mellitus with diabetic chronic kidney disease; N18.6 End stage renal disease; I50.9 Heart failure, unspecified; R41.82 Altered mental status, unspecified; I25.10 Atherosclerotic heart disease of native coronary artery without angina pectoris; Z99.2 Dependence on renal dialysis; Z90.89 Acquired absence of other organs; Z79.4 Long term (current) use of insulin
CPT/HCPCS: 36415; 70450; 71045; 80053; 82962; 83605; 83690; 83880; 84484; 85025; 85610; 87040; 93005; 96360; 99291; J7040

== ENCOUNTER 2019-12-11 08:26 | Emergency (ER) | payer MEDICARE, MEDICAID ==
[~2019-12-11] VITALS: Ht 172.7 cm; Wt 73.7 kg
[2019-12-11] MEDS ORDERED: LISI-660 PO (08:48)
[2019-12-11 09:05] LABS: GLUCOSE,POINT OF CARE 144 MG/DL (70-110)
[2019-12-11 09:44] LABS: BASOPHILS % (AUTO) 0.3 % (0.0-2.0); EOSINOPHILS % (AUTO) 5.4 % (1.0-6.0); HEMATOCRIT 31.1 % (41-53); HEMOGLOBIN 10.2 g/dL (13.5-17.5); LYMPHOCYTES # (AUTO) 0.7 K/uL (1.0-4.8); LYMPHOCYTES % (AUTO) 7.1 % (22.0-44.0); MEAN CORPUSCULAR HEMOGLOBIN 32.8 pg (26.0-34.0); MEAN CORPUSCULAR HGB CONC 32.7 G/dL (31.0-37.0); MEAN CORPUSCULAR VOLUME 100 fL (80-100); MONOCYTES # (AUTO) 0.4 K/uL (0.1-1.0); NEUTROPHILS # (AUTO) 8.4 K/uL (1.8-7.7); NEUTROPHILS % (AUTO) 83.2 % (40.0-70.0); PLATELET COUNT (AUTO) 258 K/uL (150-450); RED CELL DISTRIBUTION WIDTH 20.8 % (11.5-14.5)
[2019-12-11 10:10] LABS: ANION GAP 3 mmol/L (8-16); CARBON DIOXIDE 34 mmol/L (22-29); CHLORIDE 91 mmol/L (98-107); CREATININE 4.74 mg/dL (0.60-1.30); GLUCOSE,RANDOM 173 mg/dL (70-110); POTASSIUM 3.6 mmol/L (3.5-5.1); SODIUM SERUM 128 mmol/L (136-145); UREA NITROGEN, BLOOD 23 mg/dL (7-18)
[2019-12-11 10:11] LABS: ALANINE AMINOTRANSFERASE 152 U/L (12-78); ALKALINE PHOSPHATASE 127 U/L (46-116); ASPARTATE AMINOTRANSFERASE 112 U/L (15-37); BILIRUBIN,TOTAL 0.8 mg/dL (0.1-1.0); CALCIUM, TOTAL 9.7 mg/dL (8.8-10.5); GLOMERULAR FILTR. RATE CALC 12 mL/min (>60)
[2019-12-11 10:13] LABS: TROPONIN I 0.04 ng/mL (0.00-0.05)
[2019-12-11 10:29] LABS: ACETAMINOPHEN < 2 mcg/mL (10-30)
[2019-12-11 10:41] LABS: SALICYLATE < 2.8 mg/dL (2.8-20.0)
[2019-12-11 10:45] LABS: B-TYPE NATRIURETIC PEPTIDE 2600 pg/mL (0-100)
[2019-12-11 11:44] VITALS: BP 182/84
== END 2019-12-11 13:54 | disposition home or self-care (01) ==
LOC: EMS 08:27
DX: T82.838A Hemorrhage due to vascular prosthetic devices, implants and grafts, initial encounter (principal); E11.22 Type 2 diabetes mellitus with diabetic chronic kidney disease; I13.11 Hypertensive heart and chronic kidney disease without heart failure, with stage 5 chronic kidney disease, or end stage renal disease; I25.10 Atherosclerotic heart disease of native coronary artery without angina pectoris; D64.9 Anemia, unspecified; Z90.49 Acquired absence of other specified parts of digestive tract; Z79.899 Other long term (current) drug therapy; Y83.9 Surgical procedure, unspecified as the cause of abnormal reaction of the patient, or of later complication, without mention of misadventure at the time of the procedure; Y82.8 Other medical devices associated with adverse incidents
CPT/HCPCS: 36415; 80053; 82140; 82962; 83880; 84484; 85025; 93005; 99285; G0480; G0481

== ENCOUNTER 2020-03-28 06:09 | Emergency (ER) | payer MEDICARE, MEDICAID ==
[~2020-03-28] VITALS: Ht 165.1 cm; Wt 79.1 kg
[~2020-03-28 06:09] MED LIST changes: +FOLI-130 PO; -FOLI1 PO
[2020-03-28 06:30] VITALS: BP 145/75
== END 2020-03-28 07:25 | disposition home or self-care (01) ==
LOC: EMS 06:09
DX: R68.83 Chills (without fever) (principal); I13.11 Hypertensive heart and chronic kidney disease without heart failure, with stage 5 chronic kidney disease, or end stage renal disease; N18.6 End stage renal disease; I25.10 Atherosclerotic heart disease of native coronary artery without angina pectoris; E11.9 Type 2 diabetes mellitus without complications; Z99.2 Dependence on renal dialysis; Z86.73 Personal history of transient ischemic attack (TIA), and cerebral infarction without residual deficits; Z79.01 Long term (current) use of anticoagulants; Z79.4 Long term (current) use of insulin; Z79.899 Other long term (current) drug therapy